=== PATIENT | male | born 1990 | race Caucasian/White ===

== ENCOUNTER 2018-05-02 11:16 | Day surgery (SDC) | payer OTHER ==
[2018-04-27 14:29] VITALS: BMI 22.9
[~2018-05-02 11:16] MED LIST: SODIUM CHLORIDE 0.9% 1,000 ML IV SCH
[2018-05-02 11:45] VITALS: RESP 16; TEMP 97.5
[2018-05-02] MEDS ORDERED: SODIUM CHLORIDE 0.9% 500 ML 500 ML IV ONE (11:48)
[2018-05-02 13:32] VITALS: BP 115/83; PULSE 65
--- NOTE | 2018-05-02 17:34 | P.PCN ---
Preoperative Diagnosis: Diagnosis Recurrent syncope Twelve-lead ECG Atrial paced rhythm narrow QRS normal QT interval Tilt table test per protocol Baseline blood pressure 113/75 mmHg Baseline heart rate 69 beats a minute Patient was tilted upright at night was 70 per protocol with an 8-10 minutes there was a sudden drop in his blood pressure he became dizzy and presyncopal felt hot and weak. When he was laid supine his blood pressure normalized Impression Atrial paced rhythm on twelve-lead ECG Vasodepressive response to upright tilting
== END 2018-05-02 13:52 | disposition home or self-care (01) ==
LOC: CATHEP 11:16
PROVIDERS: ATTEND Internal Medicine Clinical Cardiac Electrophysiology
DX: R55 Syncope and collapse (principal)
CPT/HCPCS: 93660

== ENCOUNTER → 2019-03-05 | Outpatient (CLI) | payer OTHER ==
[2019-03-05 19:17] LABS: T4, Free (Free Thyroxine) 1.1 ng/dL (0.80-1.80)
== END | disposition home or self-care (01) ==
LOC: LABWHC1 10:11
PROVIDERS: ATTEND Nurse Practitioner Adult Health
DX: I47.1 Supraventricular tachycardia (principal)
CPT/HCPCS: 36415; 84439; 84443; 84481

== ENCOUNTER 2019-03-17 22:26 | Emergency (ER) | payer OTHER ==
[2019-03-17] MEDS ORDERED: ONDANSETRON 4 MG/2 ML VIAL IVP STA (22:37)
[2019-03-17] MEDS ORDERED: SODIUM CHLORIDE 0.9% 500 ML 500 ML IV STA (22:37)
[2019-03-17] MEDS ORDERED: SODIUM CHLORIDE 0.9% 1,000 ML IV STA (22:37)
[2019-03-17 22:46] LABS: Glucose,Whole Blood 94 mg/dL (75-99)
[2019-03-17 23:07] LABS: ALT 12 U/L (21-72); AST 41 U/L (17-59); African American GFR (CKD) >90 (>60 ml/min/1.73 sqM); Albumin 4.8 g/dL (3.5-5.0); Alkaline Phosphatase 108 U/L (38-126); Amylase 61 U/L (30-110); Anion Gap 12 mmol/L; Blood Urea Nitrogen 14 mg/dL (9-20); Calcium 9.4 mg/dL (8.4-10.2); Carbon Dioxide 24 mmol/L (22-30); Chloride 104 mmol/L (98-107); Glucose 101 mg/dL (74-99); Non-African American GFR(CKD) >90 (>60 ml/min/1.73 sqM); Sodium 140 mmol/L (137-145); Total Bilirubin 0.8 mg/dL (0.2-1.3); Total Protein 8.3 g/dL (6.3-8.2)
--- NOTE | 2019-03-17 23:07 | ED ---
Chest Pain HPI - General Chief Complaint: Chest Pain Stated Complaint: vomiting, chest pain Time Seen by Provider: 03/17/19 22:37 Source: patient Mode of arrival: wheelchair Limitations: no limitations - History of Present Illness Initial Comments: 28-year-old male with history of neurocardiogenic syncope with pace maker presenting to the ER for multiple complaints. Patient states that this evening when putting his son to sleep he felt warm, nauseated, and began vomiting. Patient states the then started to have chest pain, burning in the chest. Patie nt denies HTN, DM, smoking history or premature CAD. Patient states that he has a headache now, and chills. Denies neck stiffness,fever, or sensitivity to light. Patient denies any ripping tearing pain or back pain. Patient denies any pain with inspiration, hemoptysis. Denies abdominal pain or masses. Patient states that he did eat his mother burgers today and is not sure if this made him sick. Patient denies diarrhea, melenea, hematochezia. Patient denies sudden onset of headache, this being the worst headache of his life weakness of the upper or lower extremities paresthesias or sensation deficits. Upon arrival to the emergency department patient is actively vomiting. Vital signs stable. - Related Data Home Medications Medication Instructions Recorded Confirmed Albuterol Inhaler [Ventolin Hfa 2 puff INHALATION RT-Q6H PRN 05/13/14 05/02/18 Inhaler] Fludrocortisone [Florinef] 0.1 mg PO BID 05/13/14 05/02/18 Ranitidine HCl 150 mg PO BID 05/13/14 05/02/18 Metoprolol Tartrate [Lopressor] 25 mg PO BID 01/19/16 05/02/18 Montelukast [Singulair] 10 mg PO HS 01/19/16 05/02/18 PARoxetine HCL [Paxil] 30 mg PO DAILY 01/19/16 05/02/18 Beclomethasone Dipropionate [Qvar 1 puff INHALATION DAILY 04/27/18 05/02/18 80 mcg] Allergies Allergy/AdvReac Type Severity Reaction Status Date / Time ibuprofen [From Motrin] Allergy Dyspnea Verified 03/17/19 22:32 Review of Systems ROS Statement: Those systems with pertinent positive or pertinent negative responses have been documented in the HPI. ROS Other: All systems not noted in ROS Statement are negative. EKG Findings - EKG Comments: EKG Findings:: Ventricular 84 bpm, [place] interval 134 ms, QRS jain 102 ms, QT/QTC 344/406 ms. Atrial paced. No ST elevation or depression noted. Past Medical History Past Medical History: Asthma, Chest Pain / Angina, GERD/Reflux, Musculoskeletal Disorder, Seizure Disorder, Syncope Additional Past Medical History / Comment(s): SEE DR CRYSTAL Quiñones&P. CMP. Pacemaker 06/13/2014. SYNCOPAL EPISODES ONGOING. LOW BLOOD PRESSURE. VERTIGO R/T DIZZYNESS. UPON STANDING LT ARM & LEG GO NUMB. EEGs, Showed Seizure-like Activity, Diagnosed w/ Seizures but Never physically had one. HX RUPTURED DISCS IN BACK, HAD PAIN INJ. History of Any Multi-Drug Resistant Organisms: None Reported Past Surgical History: Adenoidectomy, Hernia Repair, Pacemaker, Tonsillectomy Additional Past Surgical History / Comment(s): TILT TABLE. EP STUDY. STATES M ULT HERNIA REPAIRS. PACEMAKER [employer] 05/2014 Past Anesthesia/Blood Transfusion Reactions: Motion Sickness Type of Cardiac Device: Permanent Pacemaker Device Placement Date:: 2014 Past Psychological History: Anxiety, Depression Smoking Status: Never smoker Past Alcohol Use History: None Reported Past Drug Use History: None Reported - Past Family History Father Family Medical History: Chest Pain / Angina, Coronary Artery Disease (CAD) Brother(s) Family Medical History: No Reported History Sister(s) Family Medical History: No Reported History Daughter(s) Family Medical History: No Reported History Mother Family Medical History: Cancer Additional Family Medical History / Comment(s): BREAST General Exam - General Exam Comments Initial Comments: General: The patient is awake and alert, in no distress, and does not appear acutely ill. Eye: +3 mm pupils are equal, round and reactive to light, extra-ocular movements are intact. No nystagmus. There is normal conjunctiva bilaterally. No signs of icterus. Ears, nose, mouth and throat: There are moist mucous membranes and no oral lesions. No nuchal irritation. Neck: The neck is supple, there is no tenderness or JVD. Cardiovascular: There is a regular rate and rhythm. No murmur, rub or gallop is appreciated. Respiratory: Lungs are clear to auscultation, respirations are non-labored, breath sounds are equal. No wheezes, stridor, rales, or rhonchi. Gastrointestinal: Soft, non-distended, non-tender abdomen without masses or organomegaly noted. There is no rebound or guarding present. No CVA tenderness. Bowel sounds are unremarkable. Musculoskeletal: Normal ROM, no tenderness. Strength 5/5. Sensation intact. Radial pulses equal bilaterally 2+. Neurological: A&O x 3. CN II-XII intact, There are no obvious motor or sensory deficits. Coordination appears grossly intact. Speech is normal. Skin: Skin is warm and dry and no rashes or lesions are noted. No lower extremity edema Psychiatric: Cooperative, appropriate mood & affect, normal judgment. Limitations: no limitations Course Vital Signs 03/17/19 03/17/19 03/18/19 22:30 22:32 01:25 Temperature 97.6 F 97.8 F Pulse Rate 85 81 Pulse Rate [ 78 Polisher And Buffer ] Respiratory 17 16 Rate Blood Pressure 131/93 129/89 O2 Sat by Pulse 99 99 Oximetry Chest Pain MDM - MDM 28-year-old male presenting for vomiting. Patient also complaining of chest pain after vomiting, headache. Pain controlled with morphine. No additional episodes of emesis emergency department after menstruation of Zofran patient given IV hydration. EKG no acute findings. Chest x-ray within normal limits. Laboratory studies unremarkable. Abdomen benign. Patient requesting discharge. After discussing case with attending we feel patient is stable for discharge with outpatient PCP f/u. Return parameters were discussed patient verbalized understanding, findings discussed with patient. Patient discharged appearing we ll. Disposition Clinical Impression: Nausea and vomiting, Headache, Chest pain Disposition: HOME SELF-CARE Condition: Good Instructions (If sedation given, give patient instructions): Acute Nausea and Vomiting (ED) Additional Instructions: Please use medication as discussed. Please follow-up with family doctor in the next 2 days. Please return to emergency room if the symptoms increase or worsen or for any other concerns. Is patient prescribed a controlled substance at d/c from ED?: No Referrals: Woody Shields MD [Primary Care Provider] - 1-2 days Time of Disposition: 01:15
--- NOTE | 2019-03-17 23:12 | XR ---
EXAMINATION TYPE: XR chest 2V DATE OF EXAM: 03/17/2019 COMPARISON: 10/22/2015 HISTORY: Chest pain TECHNIQUE: Frontal and lateral views of the chest are obtained. FINDINGS: Heart and mediastinum are normal. Lungs are clear. Diaphragm is normal. There is left axil shefali pacemaker. There are chest leads. Bony thorax is intact. IMPRESSION: No active cardiopulmonary disease. Normal heart. No change.
[2019-03-17 23:16] LABS: Potassium 4.1 mmol/L (3.5-5.1)
[2019-03-17] MEDS ORDERED: diphenhydrAMINE 50 MG/ML 1 ML VIAL IVP STA (23:41)
[2019-03-17] MEDS ORDERED: MORPHINE SULFATE 2 MG/ML SYRINGE IVP STA (23:41)
[2019-03-17 23:44] LABS: Basophils # (A) 0.1 k/uL (0-0.2); Basophils % (A) 1 %; Eosinophils # (A) 0.1 k/uL (0-0.7); Eosinophils % (A) 1 %; HCT 44.5 % (39.0-53.0); HGB 15.9 gm/dL (13.0-17.5); Lymphocytes # (A) 3.2 k/uL (1.0-4.8); Lymphocytes % (A) 33 %; MCH 30.9 pg (25.0-35.0); MCHC 35.8 g/dL (31.0-37.0); MCV 86.5 fL (80.0-100.0); Mean Platelet Volume 6.5; Monocytes # (A) 0.8 k/uL (0-1.0); Monocytes % (A) 8 %; Neutrophils # (A) 5.4 k/uL (1.3-7.7); Neutrophils % (A) 55 %; Platelet Count 282 k/uL (150-450); RBC 5.14 m/uL (4.30-5.90); WBC 9.8 k/uL (3.8-10.6)
[2019-03-18 01:26] VITALS: BP 129/89; PULSE 81; RESP 16; TEMP 97.8
== END 2019-03-18 01:25 | disposition home or self-care (01) ==
LOC: EC 22:26
DX: R07.9 Chest pain, unspecified (principal); R11.2 Nausea with vomiting, unspecified; R51 Headache; J45.909 Unspecified asthma, uncomplicated; K21.9 Gastro-esophageal reflux disease without esophagitis; F32.9 Major depressive disorder, single episode, unspecified; F41.9 Anxiety disorder, unspecified; Z88.6 Allergy status to analgesic agent; Z79.51 Long term (current) use of inhaled steroids; Z79.52 Long term (current) use of systemic steroids; Z79.899 Other long term (current) drug therapy; Z95.0 Presence of cardiac pacemaker; Z82.49 Family history of ischemic heart disease and other diseases of the circulatory system
CPT/HCPCS: 36415; 93005; 80053; 82150; 83605; 83690; 84484; 85025; 71046; 99285; 96374; 96375 ×2; 96361 ×2; J1200; J2405; J2270

== ENCOUNTER → 2019-08-08 | Outpatient (CLI) | payer OTHER ==
--- NOTE | 2019-08-08 13:17 | CONS ---
CONSULTATION DATE OF SERVICE: 08/08/2019. A 28-year-old gentleman had been evaluated in the sleep center for significant excessive daytime sleepiness and 4 episodes of questionable syncope. HISTORY OF PRESENT ILLNESS/SLEEP-WAKE EVALUATION: Patient has history of sleepiness for many years. He can sleep in any situations. Presently his sleep schedule from 9 p.m. until 7 a.m., but he wakes up at 7 a.m. because his daughter has to go to school. Otherwise, he possibly could sleep longer. He sleeps through the night without any awakenings and wakes up tired, falling asleep during the day, has episodes of anxiety and depression. [place] Sleepiness Scale significantly increased to 14. He takes around 2 naps a day around noon and at 4 p.m. for about 1-1/2 hours each. Sometimes he feels refreshed after naps. No vivid dreams during naps. No history of hypnagogic hallucinations. The patient has episodes of syncope, which could be differentiated with cataplexy when patient has to sit down or lay down because of he becomes weak. He does not lose consciousness during these episodes. It goes for about 15 minutes and then goes away after that. PAST MEDICAL HISTORY: Positive for asthma, anxiety. PAST SURGICAL HISTORY: Status post permanent pacemaker insertion. MEDICATIONS: Montelukast, Paxil, fludrocortisone, metoprolol, albuterol. SOCIAL HISTORY: Negative for smoking. Negative for using alcohol. FAMILY HISTORY: Asthma, headaches. REVIEW OF SYSTEMS: Significant tiredness and all the time sleepiness during the day. Episodes of weakness and tiredness. PHYSICAL EXAMINATION: During physical exam, gentleman without distress. VITAL SIGNS: BP 120/35, HR 76, RR 14, height 5 feet 8 inches, weight 189.0, body mass index 28.7, temperature 98.0, oxygen saturation at room air 98%. HEENT: PERRLA, EOMI. Oropharynx extremely low position of soft palate. Mallampati 4. Restriction of nasal breathing bilaterally. NECK: 15-2/3 inches in circumference. LUNGS: Clear to percussion and to auscultation. Good air exchange. No wheezing or rhonchi. HEART: S1, S2 regular. No murmurs, gallops, or rubs. ABDOMEN: Soft and nontender. Bowel sounds are present. No organomegaly appreciated. EXTREMITIES: No clubbing or cyanosis. PERIANESTHESIA NURSE: Awake, alert, and oriented X3. Cranial nerves 2 to 7 intact. There is no fasciculation or atrophy. noted. No focal deficits observed. IMPRESSION: 1. Patient sleeps by himself. He does not know that he snores, extremely low position of soft palate, significant restriction of nasal breathing; possible obstructive sleep apnea-hypopnea syndrome, although the patient does not wake up from sleep according to him. 2. Significant excessive daytime sleepiness. [place] Sleepiness Scale increased to 14. The patient may take naps 2 times a day for 1-1/2 hours each with sleep schedule for 10 hours at night, episodes of muscle weakness. Differential diagnosis include idiopathic hypersomnia and narcolepsy with questionable cataplexy. 3. Allergy. 4. History of asthma. 5. History of anxiety. 6. Status post permanent pacemaker insertion. PLAN: 1. Polysomnography for evaluation of patient's breathing during sleep. 2. CPAP/BiPAP titration if sleep study confirms obstructive sleep apnea-hypopnea syndrome. 3. Preferable position during sleep on the side. 4. No driving if patient feels any sleepiness. 5. I will see patient for follow up visit to explain results of testing and following plan. 6. Multiple sleep latency test for objective evaluation of patient's symptoms of excessive daytime sleepiness. Thank you very much for referring this patient for consultation. Sincerely, Genaro Carrion MD, PhD, FAASM Diplomat of [place] [employer] [place] [employer] Physician Underwriter of [facility] [place] MMODL / IJN: [id number] /
== END | disposition home or self-care (01) ==
LOC: SLEEP 11:39
PROVIDERS: ATTEND Internal Medicine
DX: G47.10 Hypersomnia, unspecified (principal); M62.81 Muscle weakness (generalized); T78.40XA Allergy, unspecified, initial encounter; J45.909 Unspecified asthma, uncomplicated; Z86.59 Personal history of other mental and behavioral disorders; Z87.09 Personal history of other diseases of the respiratory system; Z82.5 Family history of asthma and other chronic lower respiratory diseases; Z95.0 Presence of cardiac pacemaker; Z79.52 Long term (current) use of systemic steroids; Z79.899 Other long term (current) drug therapy
CPT/HCPCS: 99211

== ENCOUNTER 2020-01-23 11:36 | Inpatient (IN) | payer MEDICAID, OTHER ==
--- NOTE | 2020-01-23 11:51 | ED ---
General Adult HPI - General Chief complaint: Psychiatric Symptoms Stated complaint: mental health Time Seen by Provider: 01/23/20 11:42 Source: patient, RN notes reviewed Mode of arrival: ambulatory Limitations: no limitations - History of Present Illness Initial comments: Patient is a pleasant 29-year-old male presenting to the emergency Department with complaints of depression. Symptoms have worsened over the past few days. Patient is unclear why. Patient does have suicidal thoughts without plan. No homicidal thoughts. No hallucinations. No alcohol or street drug use. No new physical complaints. Patient does have history of previous depression. - Related Data Home Medications Medication Instructions Recorded Confirmed Fludrocortisone [Florinef] 0.1 mg PO BID 05/13/14 01/23/20 Metoprolol Tartrate [Lopressor] 25 mg PO BID 01/19/16 01/23/20 Montelukast [Singulair] 10 mg PO HS 01/19/16 01/23/20 PARoxetine HCL [Paxil] 30 mg PO DAILY 01/19/16 01/23/20 Beclomethasone Dipropionate [Qvar 1 puff INHALATION RT-DAILY 04/27/18 01/23/20 80 mcg] Albuterol Sulfate [Albuterol 2 puff PO RT-Q6H PRN 01/23/20 01/23/20 Sulfate Hfa] Allergies Allergy/AdvReac Type Severity Reaction Status Date / Time ibuprofen [From Motrin] Allergy Dyspnea Verified 01/23/20 12:39 Review of Systems ROS Statement: Those systems with pertinent positive or pertinent negative responses have been documented in the HPI. ROS Other: All systems not noted in ROS Statement are negative. Constitutional: Denies: fever Eyes: Denies: eye pain ENT: Denies: ear pain Respiratory: Denies: cough Cardiovascular: Denies: chest pain Endocrine: Denies: fatigue Gastrointestinal: Denies: abdominal pain Genitourinary: Denies: dysuria Musculoskeletal: Denies: back pain Skin: Denies: rash Neurological: Denies: headache Psychiatric: Reports: depression, suicidal thoughts Past Medical History Past Medical History: Asthma, Chest Pain / Angina, GERD/Reflux, Musculoskeletal Disorder, Seizure Disorder, Syncope Additional Past Medical History / Comment(s): SEE DR CRYSTAL Quiñones&Bryan. CMP. Pacemaker 06/13/2014. SYNCOPAL EPISODES ONGOING. LOW BLOOD PRESSURE. VERTIGO R/T DIZZYNESS. UPON STANDING LT ARM & LEG GO NUMB. EEGs, Showed Seizure-like Activity, Diagnosed w/ Seizures but Never physically had one. HX RUPTURED DISCS IN BACK, HAD PAIN INJ. History of Any Multi-Drug Resistant Organisms: None Reported Past Surgical History: Adenoidectomy, Hernia Repair, Pacemaker, Tonsillectomy Additional Past Surgical History / Comment(s): TILT TABLE. EP STUDY. STATES MULT HERNIA REPAIRS. PACEMAKER [employer] 05/2014 Past Anesthesia/Blood Transfusion Reactions: Motion Sickness Type of Cardiac Device: Permanent Pacemaker Device Placement Date:: 2014 Past Psychological History: Anxiety, Depression Smoking Status: Never smoker Past Alcohol Use History: None Reported Past Drug Use History: None Reported - Past Family History Father Family Medical History: Chest Pain / Angina, Coronary Artery Disease (CAD) Brother(s) Family Medical History: No Reported History Sister(s) Family Medical History: No Reported History Daughter(s) Family Medical History: No Reported History Mother Family Medical History: Cancer Additional Family Medical History / Comment(s): BREAST General Exam Limitations: no limitations General appearance: alert, in no apparent distress Head exam: Present: normocephalic Eye exam: Present: normal appearance Neck exam: Present: normal inspection Respiratory exam: Present: normal lung sounds bilaterally Cardiovascular Exam: Present: regular rate, normal rhythm GI/Abdominal exam: Present: soft. Absent: tenderness Extremities exam: Present: normal inspection Neurological exam: Present: alert Psychiatric exam: Present: depressed Skin exam: Present: normal color Course Vital Signs 01/23/20 01/23/20 01/23/20 11:38 12:42 14:00 Temperature 98.2 F Pulse Rate 87 Respiratory 18 18 18 Rate Blood Pressure 138/97 O2 Sat by Pulse 98 Oximetry 01/23/20 14:27 Temperature Pulse Rate Respiratory 18 Rate Blood Pressure O2 Sat by Pulse Oximetry Medical Decision Making - Medical Decision Making Patient seen by mental health services with plan for admission. Disposition Clinical Impression: Depression Disposition: TRANSFER TO PSYCH HOSP/UNIT Is patient prescribed a controlled substance at d/c from ED?: No Decision Time: 14:50
[2020-01-23] MEDS ORDERED: LORazepam 1 MG TAB PO PRN (14:37)
[2020-01-23] MEDS ORDERED: ZIPRASIDONE 20 MG VIAL IM PRN (14:37)
[2020-01-23] MEDS ORDERED: ACETAMINOPHEN TAB 325 MG TAB PO PRN (14:37)
[2020-01-23] MEDS ORDERED: MAGNESIUM HYDROXIDE 2,400 MG/10 ML CUP PO PRN (14:37)
[2020-01-23] MEDS ORDERED: MAG HYDROX/AL HYDROX/SIMETH 30 ML CUP PO PRN (14:37)
[2020-01-23] MEDS: FLUDROCORTISONE 0.1 MG TAB PO SCH (21:43)
[2020-01-23] MEDS: METOPROLOL TARTRATE 25 MG TAB PO SCH (21:43)
[2020-01-23] MEDS: MONTELUKAST 10 MG TAB PO SCH (21:43)
[2020-01-24] MEDS ORDERED: PARoxetine 10 MG TAB PO SCH (09:00)
[2020-01-24] MEDS: FLUTICASONE 110 MCG INHALER (MHU) INHALATION SCH (09:04)
[2020-01-24] MEDS: METOPROLOL TARTRATE 25 MG TAB PO SCH ×2 (09:05→21:13)
[2020-01-24] MEDS: FLUDROCORTISONE 0.1 MG TAB PO SCH ×2 (09:05→21:13)
[2020-01-24 09:24] LABS: Basophils % (A) 1 %; Eosinophils # (A) 0.1 k/uL (0-0.7); Eosinophils % (A) 1 %; HCT 47.9 % (39.0-53.0); HGB 15.9 gm/dL (13.0-17.5); Lymphocytes # (A) 1.6 k/uL (1.0-4.8); Lymphocytes % (A) 25 %; MCH 29.5 pg (25.0-35.0); MCHC 33.2 g/dL (31.0-37.0); MCV 88.8 fL (80.0-100.0); Mean Platelet Volume 7.8; Monocytes # (A) 0.4 k/uL (0-1.0); Monocytes % (A) 7 %; Neutrophils # (A) 4.2 k/uL (1.3-7.7); Neutrophils % (A) 65 %; Platelet Count 247 k/uL (150-450); RBC 5.39 m/uL (4.30-5.90); RDW 12.5 % (11.5-15.5); WBC 6.4 k/uL (3.8-10.6)
[2020-01-24 09:34] LABS: ALT 13 U/L (4-49); AST 19 U/L (17-59); African American GFR (CKD) >90 (>60 ml/min/1.73 sqM); Albumin 4.5 g/dL (3.5-5.0); Alkaline Phosphatase 63 U/L (38-126); Anion Gap 9 mmol/L; Blood Urea Nitrogen 11 mg/dL (9-20); Calcium 9.4 mg/dL (8.4-10.2); Carbon Dioxide 29 mmol/L (22-30); Chloride 102 mmol/L (98-107); Glucose 119 mg/dL (74-99); Non-African American GFR(CKD) >90 (>60 ml/min/1.73 sqM); Sodium 140 mmol/L (137-145); Total Bilirubin 0.8 mg/dL (0.2-1.3); Total Protein 7.2 g/dL (6.3-8.2)
--- NOTE | 2020-01-24 10:27 | P.HP ---
Psychiatric H&P - . H&P Date: 01/24/20 History & Physical: Allergies Allergy/AdvReac Type Severity Reaction Status Date / Time ibuprofen [From Motrin] Allergy Dyspnea Verified 01/23/20 16:36 Vital Signs Temp 97.4 F L 01/24/20 06:44 Pulse 110 H 01/24/20 09:03 Resp 16 01/24/20 06:44 BP 127/83 01/24/20 09:03 Pulse Ox 100 01/23/20 16:08 Intake & Output 01/23/20 01/24/20 01/24/20 18:59 06:59 18:59 Weight 81.692 kg Laboratory Last Values WBC 6.4 k/uL (3.8-10.6) 01/24/20 08:48 RBC 5.39 m/uL (4.30-5.90) 01/24/20 08:48 Hgb 15.9 gm/dL (13.0-17.5) 01/24/20 08:48 Hct 47.9 % (39.0-53.0) 01/24/20 08:48 MCV 88.8 fL (80.0-100.0) 01/24/20 08:48 MCH 29.5 pg (25.0-35.0) 01/24/20 08:48 MCHC 33.2 g/dL (31.0-37.0) 01/24/20 08:48 RDW 12.5 % (11.5-15.5) 01/24/20 08:48 Plt Count 247 k/uL (150-450) 01/24/20 08:48 Neutrophils % 65 % 01/24/20 08:48 Lymphocytes % 25 % 01/24/20 08:48 Monocytes % 7 % 01/24/20 08:48 Eosinophils % 1 % 01/24/20 08:48 Basophils % 1 % 01/24/20 08:48 Neutrophils # 4.2 k/uL (1.3-7.7) 01/24/20 08:48 Lymphocytes # 1.6 k/uL (1.0-4.8) 01/24/20 08:48 Monocytes # 0.4 k/uL (0-1.0) 01/24/20 08:48 Eosinophils # 0.1 k/uL (0-0.7) 01/24/20 08:48 Basophils # 0.0 k/uL (0-0.2) 01/24/20 08:48 Sodium 140 mmol/L (137-145) 01/24/20 08:48 Potassium 4.0 mmol/L (3.5-5.1) 01/24/20 08:48 Chloride 102 mmol/L (98-107) 01/24/20 08:48 Carbon Dioxide 29 mmol/L (22-30) 01/24/20 08:48 Anion Gap 9 mmol/L 01/24/20 08:48 BUN 11 mg/dL (9-20) 01/24/20 08:48 Creatinine 0.80 mg/dL (0.66-1.25) 01/24/20 08:48 Est GFR (CKD-EPI)AfAm >90 (>60 ml/min/1.73 sqM) 01/24/20 08:48 Est GFR (CKD-EPI)NonAf >90 (>60 ml/min/1.73 sqM) 01/24/20 08:48 Glucose 119 mg/dL (74-99) H 01/24/20 08:48 Calcium 9.4 mg/dL (8.4-10.2) 01/24/20 08:48 Total Bilirubin 0.8 mg/dL (0.2-1.3) 01/24/20 08:48 AST 19 U/L (17-59) 01/24/20 08:48 ALT 13 U/L (4-49) 01/24/20 08:48 Alkaline Phosphatase 63 U/L (38-126) 01/24/20 08:48 Total Protein 7.2 g/dL (6.3-8.2) 01/24/20 08:48 Albumin 4.5 g/dL (3.5-5.0) 01/24/20 08:48 TSH 1.510 mIU/L (0.465-4.680) 01/24/20 08:48 01/24/20 10:12 HPI: The patient's depression has gotten much worse since he was started on steroids. He was feeling suicidal thinking of drowning himself and unable to contract he contacted the [facility] and they told him go to the hospital. He has been on Paxil for almost 5 years at 30 mg and feels it isn't working. Plus when he takes it he feels a little dizzy. Current symptomatology: Low energy lack of enjoyment and motivation and hope. He says he has no problem with irritability or anxiety but he is always tearful he says he has to cry himself to sleep every night and doesn't get to sleep until 3 in the morning then is up again 4 hours later. Past psychiatric history: Although patient has struggled with medical issues his entire life it wasn't until he had a tilt test and they gave him a pacemaker and then did the tilt test again and it didn't seem to help that he began to feel depressed that was about 5 years ago. They put him on Paxil which she thinks helped for a while but just isn't helping now. He notices that the depression got much worse when they added steroids. He was told that he had to have that because when he stood up all his blood tried to go down to his feet and that it would decrease that. Medical: The patient has something called neurocardiogenic syncope with severe bradycardia and sinus pausing. He also has an history of asthma chest pain angina GERD musculoskeletal disorder and syncope there is some question as to possibility of seizure disorder. He says that he had an EEG that showed seizure potential but he has never actually had a seizure. He tends to run low blood pressure and he has had ruptured disks in his back Vital signs: Temperature is 90.7 for heart rates 84 respirations 16 blood pressure 115/65 and pO2 on room air is under percent Labs: He had a hematology was fine he is not at all anemic and general chemistry was fine, for some reason his total protein is slightly elevated which is unusual for patients Substance use patient denies any use of alcohol cigarettes or street drugs now or in the past Social history the patient is oldest of 3 children born to his parents who are alive and together his dad struggle with heart problems. His mother had cancer but just treated and she is doing well he denies psychiatric problems in the family. His significant other who he is been with for over 11 years is healthy and works steadily at [employer] and they have 3 children a daughter 6 a daughter 4 and a son 2. Both off the daughters have some cardiac problems and his son has regular seizures. They think that the seizures might be connected to a similar cardiac issue and low oxygen. The patient had a normal and early development and did really well until he was about 10 when he started having this syncopal episodes. He dropped out of school in 11th grade due to his medical problems and is unable to hold a steady job. 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 No experience no legal issues. He and his live together with their children and double wide trailer. The things he really loves in life are riding his more cycle fishing and driving high-speed racecars. He says he has backed off on doing these things since the depression has worsened. Mental status exam: The patient is alert oriented to person place time and circumstances psychomotor activity is decreased response times are slow eye contact is down affect is sad. He denies and does not evidence any psychotic symptoms he is slightly tearful at times he says that although he was thinking of drowning himself he says I don't know if I would've actually done it. Short- term memory is slightly impaired he can remember 2 of 3 objects after 3 minutes. Overall intelligence is low average she has a little trouble understanding abstract thoughts. Strengths caring and 3 children he loves no substance use wants to get better willing to go to counseling Weaknesses chronic depression and physical illness and concern about his children and their illnesses Diagnosis major depression recurrent severe nonpsychotic. Rule out depression engendered by steroids Assessment I don't think he will need to be in the hospital for any length of time only met Tuesday I am going to start him on mirtazapine and hopefully he'll tolerate it not back off on the Paxil to 20 and the mirtazapine should double the Paxil's impact since it is a receptor agonist.
--- NOTE | 2020-01-24 11:14 | P.CONS ---
History of Present Illness - Reason for Consult Consult date: 01/24/20 medical management - Chief Complaint Depression - History of Present Illness This is a 29-year-old male patient of Dr. Schwartz with medical history of asthma, chest pain, GERD, questionable seizure disorder, syncope with permanent pacemaker, and depression. Patient reports increased stress related to his children's illnesses and had suicidal thoughts. 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 Patient was admitted to the psychiatric floor and was seen by psychology. Patient was started on mirtazapine and Paxil was decreased to 20 mg daily. Patient was seen this morning in [facility], discussed 3 of his children have different illnesses with seizure disorder, another child needs a lung transplant, and currently working up 3-year-old for brain tumor patient reported. Patient believes his depression also got worse when started on steroids. Will continue to follow patient along with psychology and their recommendations. Labs were reviewed, and vital signs are stable, she was afebrile heart rate 84, blood pressure 115/65, satting 100% on room air. Review of Systems General: Patient denies fever, chills,nausea, or vomiting. HEENT: No visual changes. No eye pain. No nasal symptoms. No dysphagia.No odynophagia. No ENT pain. Cardiac: No chest pain. No palpitations. Pulmonary: No dyspnea. GI: No abdominal pain. No diarrhea. No constipation. No bowel habit changes. No melena. No hematochezia. : No dysuria.No hematuria. No hesitancy. No urgency. Musculoskeletal: No musculoskeletal pain. Integumentary: Denies rash. Denies pruritis. Neurologic: Denies any lateralizing weakness. Denies headache. Denies numbness. Denies tingling. No seizure activity. Denies TIA or CVA. Endocrine: Denies Fatigue Heme/Onc: Denies anemia. Denies cancer. Denies adenopathy. Allergic/Immunologic: Denies allergies Psych: Increased depression Past Medical History Past Medical History: Asthma, Chest Pain / Angina, GERD/Reflux, Musculoskeletal Disorder, Seizure Disorder, Syncope Additional Past Medical History / Comment(s): SEE DR ROJAS H&P. CMP. Pacemaker 06/13/2014. SYNCOPAL EPISODES ONGOING. LOW BLOOD PRESSURE. VERTIGO R/T DIZZYNESS. UPON STANDING LT ARM & LEG GO NUMB. EEGs, Showed Seizure-like Activity, Diagnosed w/ Seizures but Never physically had one. HX RUPTURED DISCS IN BACK, HAD PAIN INJ., unable to stand for longer than 12 minutes, never had a seizure, only diagnosed, History of Any Multi-Drug Resistant Organisms: None Reported Past Surgical History: Adenoidectomy, Hernia Repair, Pacemaker, Tonsillectomy Additional Past Surgical History / Comment(s): TILT TABLE. EP STUDY. STATES MULT HERNIA REPAIRS. PACEMAKER [employer] 05/2014 Past Anesthesia/Blood Transfusion Reactions: Motion Sickness Type of Cardiac Device: Permanent Pacemaker Device Placement Date:: 2014 Past Psychological History: Anxiety, Depression Smoking Status: Never smoker Past Alcohol Use History: None Reported Past Drug Use History: None Reported - Past Family History Father Family Medical History: Chest Pain / Angina, Coronary Artery Disease (CAD) Brother(s) Family Medical History: No Reported History Sister(s) Family Medical History: No Reported History Daughter(s) Family Medical History: No Reported History Mother Family Medical History: Cancer Additional Family Medical History / Comment(s): BREAST Medications and Allergies Home Medications Medication Instructions Recorded Confirmed Type Fludrocortisone [Florinef] 0.1 mg PO DAILY 05/13/14 01/23/20 History Metoprolol Tartrate [Lopressor] 12.5 mg PO DAILY 01/19/16 01/23/20 History Montelukast [Singulair] 10 mg PO HS 01/19/16 01/23/20 History PARoxetine HCL [Paxil] 30 mg PO DAILY 01/19/16 01/23/20 History Beclomethasone Dipropionate [Qvar 1 puff INHALATION RT-DAILY 04/27/18 01/23/20 History 80 mcg] Albuterol Sulfate [Albuterol 2 puff PO RT-Q6H PRN 01/23/20 01/23/20 History Sulfate Hfa] Allergies Allergy/AdvReac Type Severity Reaction Status Date / Time ibuprofen [From Motrin] Allergy Dyspnea Verified 01/23/20 16:36 Physical Exam Vitals: Vital Signs Temp Pulse Pulse Resp BP BP Pulse Ox 01/24/20 09:03 110 H 127/83 01/24/20 06:44 97.4 F L 84 16 115/65 01/23/20 16:08 97.5 F L 89 18 124/99 100 01/23/20 14:37 99 130/102 01/23/20 14:27 18 01/23/20 14:00 18 01/23/20 12:42 18 01/23/20 11:38 98.2 F 87 18 138/97 98 Intake and Output 01/23/20 01/24/20 01/24/20 22:59 06:59 14:59 Other: Weight 81.692 kg General: Patient awake alert and oriented x 3. No acute distress. HEENT: Sclerae are clear. Pupils equal, round and reactive to light bilaterally. No cervical adenopathy. No pharyngeal erythema or exudate. No thyromegaly. Lymphatic: No anterior cervical adenopathy. Chest: Heart regular in rate and rhythm positive S1 and S2. No S3. No S4. No clicks, rubs or murmurs. Lungs: Clear to auscultation bilaterally. No wheezes rales or rhonchi. Respirations even and nonlabored. Abdomen/GI: Bowel sounds present in all 4 quadrants. Bowel sounds normoactive. No abdominal tenderness. No mass. No hepatomegaly or splenomegaly. No bruits. Musculoskeletal/ Extremities: No tenderness on muscular exam. No ecchymosis. Vascular: Radial pulses equal. 2/4. Skin: No rash. Neurologic: Awake, alert and oriented times 3. No lateralizing deficits noted on gross inspection. Psychiatric: Flat affect Results CBC & Chem 7: 01/24/20 08:48 01/24/20 08:48 Labs: Abnormal Lab Results - Last 24 Hours (Table) 01/24/20 Range/Units 08:48 Glucose 119 H (74-99) mg/dL Assessment and Plan Assessment: 1: Depression: Patient was admitted to psychiatric floor for evaluation. Psychology seen patient decrease Paxil to 20 mg by mouth daily and added mirtazapine 15 mg at at bedtime. 2. Neurogenic syncope: Patient has permanent pacemaker in place, on Florinef 0.1 mg twice a day. 3. Chest pain/angina: Patient denies any symptoms at this time follows with cardiology. Continue metoprolol 25 mg by mouth twice a day. 4. History of asthma: On albuterol inhaler as needed along with Flovent. Singulair 10 mg at bedtime 5. Generalized Anxiety: Has Ativan when necessary. 6. Insomnia: We'll continue melatonin 5 mg at at bedtime Patient will be admitted to the hospital for minimum of 2 night stay. Discharge plan: Likely home with self-care, depending on psych's recommendations. Impression and plan of care have been directed as dictated by the signing physician. Leyla Berry nurse practitioner acting as scribe for signing physician.
[2020-01-24] MEDS ORDERED: MIRTAZAPINE 15 MG TAB PO SCH (21:00)
[2020-01-24] MEDS: MONTELUKAST 10 MG TAB PO SCH (21:12)
[2020-01-24] MEDS: MELATONIN 5 MG TABLET PO SCH (21:13)
[2020-01-25] MEDS: PARoxetine 20 MG TAB PO SCH (08:39)
[2020-01-25] MEDS: FLUTICASONE 110 MCG INHALER (MHU) INHALATION SCH (08:39)
[2020-01-25] MEDS: METOPROLOL TARTRATE 25 MG TAB PO SCH ×2 (08:39→21:09)
[2020-01-25] MEDS: FLUDROCORTISONE 0.1 MG TAB PO SCH (08:40)
--- NOTE | 2020-01-25 09:49 | P.PN ---
Subjective Progress Note Date: 01/25/20 Principal diagnosis: Diagnoses major depression recurrent severe nonpsychotic Subjective: Patient says he slept well still feels sad and anxious however he is not actively suicidal. He says he only takes the steroids once a day and sometimes he doesn't take it at all. Objective I called the patient's cardiology office and talked to the nurse veterinarian assistant to works with Dr. howard and we are both on board with trying to get by with less steroids. Vital signs: Temperature is 98.1 heart rates 89 respiration 18 blood pressure 124/79 which is adequate Labs: Hematology yesterday was fine general chemistry showed a slightly elevated glucose groups the patient says he went to the groups yesterday and was recorded to have attended the full group initiates interaction with peers and staff spontaneous compliant affect somewhat blunted Staff report patient seems calm and composed able to take care of his ADLs denies any hallucinations delusions or active suicidality admits to being depressed Mental status exam the patient is alert decreased psychomotor activity sad affect adequate eye contact gait and station are normal no signs of psychosis no tearfulness or aggression Assessment patient is still depressed and I do need to take him off dose steroids and then we need to watch for his blood pressure crashing I think he should be safe since his only been taking less than 1 a day recently also need to increase his mirtazapine to 30 and look for discharge on Tuesday Objective - Vital Signs Vital signs: Vital Signs Temp 98.1 F 01/24/20 21:14 Pulse 89 01/25/20 08:42 Resp 18 01/25/20 08:42 BP 124/79 01/25/20 08:42 Pulse Ox 100 01/23/20 16:08 - Labs CBC & Chem 7: 01/24/20 08:48 01/24/20 08:48
[2020-01-25] MEDS: MELATONIN 5 MG TABLET PO SCH (21:09)
[2020-01-25] MEDS: MONTELUKAST 10 MG TAB PO SCH (21:09)
[2020-01-25] MEDS: MIRTAZAPINE 15 MG TAB PO SCH (21:09)
[2020-01-26] MEDS: METOPROLOL TARTRATE 25 MG TAB PO SCH ×2 (08:50→21:14)
[2020-01-26] MEDS: FLUTICASONE 110 MCG INHALER (MHU) INHALATION SCH (08:50)
[2020-01-26] MEDS: PARoxetine 20 MG TAB PO SCH (08:51)
[2020-01-26] MEDS: ALBUTEROL HFA INHALER INHALATION PRN ×2 (14:54→21:18)
--- NOTE | 2020-01-26 16:08 | P.PN ---
Subjective Progress Note Date: 01/26/20 This is a 29-year-old male patient of Dr. Schwartz with medical history of asthma, chest pain, GERD, questionable seizure disorder, syncope with permanent pacemaker, and depression. Patient reports increased stress related to his children's illnesses and had suicidal thoughts. 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 Patient was admitted to the psychiatric floor and was seen by psychology. Patient was started on mirtazapine and Paxil was decreased to 20 mg daily. Patient was seen this morning in [facility], discussed 3 of his children have different illnesses with seizure disorder, another child needs a lung transplant, and currently working up 3-year-old for brain tumor patient reported. Patient believes his depression also got worse when started on steroids. Will continue to follow patient along with psychology and their recommendations. Labs were reviewed, and vital signs are stable, she was afebrile heart rate 84, blood pressure 115/65, satting 100% on room air. 01/25 patient by the nurse that patient is having chest heaviness associated with shortness of breath and dizziness since the discontinuation of fludrocortisone. Patient vitals this morning suggests a temp of 97.9 pulse 80 blood pressure 98/64 that increased to 136/90. He does endorses dizziness associated with shortness of breath and chest heaviness since early in the morning. Patient had pacemaker placed [address] Hackett for syncope and was placed on fludrocortisone since then. EKG done that was negative for any ST or T-wave changes patient had a atrial paced rhythm. Labs are ordered included a CBC, CMP, troponin and magnesium. Orthostatics ordered and patient encouraged to a in drink plenty of fluids. Midodrine initiated at 10 mg 3 times a day. Cardiology consulted. Review of Systems General: Patient denies fever, chills,nausea, or vomiting. Positive for vertigo HEENT: No visual changes. No eye pain. No nasal symptoms. No dysphagia.No odynophagia. No ENT pain. Endorses swelling of the eyes Cardiac: Positive for chest pain and shortness of breath no palpitation Pulmonary: Positive for shortness of breath GI: No abdominal pain. No diarrhea. No constipation. No bowel habit changes. No melena. No hematochezia. : No dysuria.No hematuria. No hesitancy. No urgency. Musculoskeletal: No musculoskeletal pain. Integumentary: Denies rash. Denies pruritis. Neurologic: Denies any lateralizing weakness. Denies headache. Denies numbness. Denies tingling. No seizure activity. Denies TIA or CVA. Endocrine: Denies Fatigue Heme/Onc: Denies anemia. Denies cancer. Denies adenopathy. Allergic/Immunologic: Denies allergies Psych: Increased depression Objective - Vital Signs Vital signs: Vital Signs Temp 97.3 F L 01/26/20 13:23 Pulse 89 01/26/20 14:56 Resp 20 01/26/20 08:50 BP 136/90 01/26/20 14:56 Pulse Ox 100 01/23/20 16:08 - Exam General: Patient awake alert and oriented x 3. No acute distress. HEENT: Sclerae are clear. Appears tired and puffiness involving the lower eyelid Pupils equal, round and reactive to light bilaterally. No cervical adenopathy. No pharyngeal erythema or exudate. No thyromegaly. Lymphatic: No anterior cervical adenopathy. Chest: Heart regular in rate and rhythm positive S1 and S2. No S3. No S4. No clicks, rubs or murmurs. Lungs: Clear to auscultation bilaterally. No wheezes rales or rhonchi. Respirations even and nonlabored. Abdomen/GI: Bowel sounds present in all 4 quadrants. Bowel sounds normoactive. No abdominal tenderness. No mass. No hepatomegaly or splenomegaly. No bruits. Musculoskeletal/ Extremities: No tenderness on muscular exam. No ecchymosis. Vascular: Radial pulses equal. 2/4. Skin: No rash. Neurologic: Awake, alert and oriented times 3. No lateralizing deficits noted on gross inspection. Psychiatric: Flat affect - Labs CBC & Chem 7: 01/24/20 08:48 01/24/20 08:48 Assessment and Plan Plan: 1: Depression: Patient was admitted to psychiatric floor for evaluation. Psychology seen patient decrease Paxil to 20 mg by mouth daily and added mirtazapine 15 mg at at bedtime. 2. Dizziness with h/o Cardiogenic syncope: Patient has permanent pacemaker in place, was on Florinef 0.1 mg twice a day. florinef discontinued yesterday, will order 8 am cortisol and ACTH . Orthostatic ordered if positive patient can be started on midodrine 3. Chest pain/angina: unclear etiology , labs ordered troponin ordered, ECG ordered. cardiology consulted Continue metoprolol 25 mg by mouth twice a day. 4. History of asthma: On albuterol inhaler as needed along with Flovent. Singulair 10 mg at bedtime 5. Generalized Anxiety: Has Ativan when necessary. 6. Insomnia: We'll continue melatonin 5 mg at at bedtime
[2020-01-26 16:10] LABS: Basophils # (A) 0.1 k/uL (0-0.2); Basophils % (A) 1 %; Eosinophils # (A) 0.1 k/uL (0-0.7); Eosinophils % (A) 1 %; HCT 45.9 % (39.0-53.0); HGB 15.1 gm/dL (13.0-17.5); Lymphocytes # (A) 1.8 k/uL (1.0-4.8); Lymphocytes % (A) 25 %; MCH 29.2 pg (25.0-35.0); MCV 88.5 fL (80.0-100.0); Mean Platelet Volume 7.9; Monocytes # (A) 0.6 k/uL (0-1.0); Monocytes % (A) 8 %; Neutrophils # (A) 4.5 k/uL (1.3-7.7); Neutrophils % (A) 63 %; Platelet Count 234 k/uL (150-450); RBC 5.19 m/uL (4.30-5.90); RDW 12.5 % (11.5-15.5); WBC 7.1 k/uL (3.8-10.6)
[2020-01-26 16:23] LABS: ALT 11 U/L (4-49); AST 19 U/L (17-59); African American GFR (CKD) >90 (>60 ml/min/1.73 sqM); Albumin 4.4 g/dL (3.5-5.0); Alkaline Phosphatase 57 U/L (38-126); Anion Gap 7 mmol/L; Blood Urea Nitrogen 10 mg/dL (9-20); Calcium 9.1 mg/dL (8.4-10.2); Carbon Dioxide 30 mmol/L (22-30); Chloride 102 mmol/L (98-107); Glucose 91 mg/dL (74-99); Non-African American GFR(CKD) >90 (>60 ml/min/1.73 sqM); Potassium 4.3 mmol/L (3.5-5.1); Sodium 139 mmol/L (137-145); Total Bilirubin 0.4 mg/dL (0.2-1.3); Total Protein 6.9 g/dL (6.3-8.2)
[2020-01-26] MEDS: MIRTAZAPINE 15 MG TAB PO SCH (21:13)
[2020-01-26] MEDS: MONTELUKAST 10 MG TAB PO SCH (21:14)
[2020-01-26] MEDS: MELATONIN 5 MG TABLET PO SCH (21:14)
--- NOTE | 2020-01-26 22:37 | P.PN ---
Progress Note - Text Progress Note Date: 01/26/20 Subjective: Patient was seen today as a cross coverage for Dr. Andrew . The patient was evaluated, chart reviewed, case discussed with the treatment team. Patient reports good sleep, and appetite was reported as "fine". Patient has been going to groups and other unit activities. The patient is compliant with his medications and denies any adverse reactions. Reports his depression is "much better", and denies any S/H ideation. Denies psychotic or manic symptoms. Reports no mood swings but still have high anxiety. Reports feeling emotionally stable and ready for discharge on Tuesday as been told by his primary psychiatrist. Reports severe chest pain since last night with SOB. The pain comes and goes and very strong at middle of his chest and sometimes made him drowsy. EKG ordered immediately which came back WNL and medical team consulted who ordered further work up and referred pt to silk screen painter because history of defibrillator. Objective: Vitals has been reviewed. Mental status examination; Appearance: The patient appears stated age, adequately groomed and dressed, no specific features. Gait/posture: Normal gait, Normal arm swinging: No abnormal movements. Attitude and behavior: engaged, cooperative, eye contact. Motor activity: Normal psychomotor activity Speech: Normal rate, tone. Mood: Anxious, depressed Affect: Constricted Thought form: goal-directed, linear, coherent. Thought content: Non-delusional, denies suicidal thoughts, denies homicidal tho ughts, denies intentions or plans. Perception: Denies any auditory or visual hallucinations Attention: No impairment. Orientation: Patient patient was fully oriented to time place person and situati on. Insight: Patient has fair insight about his psychiatric disorder. Judgment: Patient has fair judgment about his psychiatric treatment. Assessment: Major depressive disorder, recurrent severe without psychotic features. Plan: Continue inpatient level of care due to need for further stabilization on medications. Precautions: Continue 15 minutes check for safety. Consider medical consultation if any acute medical issues arises. Medical team consulted for chest pain, EKG ordered, Enzymes and Echo ordered, and referred to silk screen painter by medical team Provide the patient individual, group therapy, substance use disorder counseling to give better insight and learn coping skills. Medications: Paxil and Remeron for depression and Remeron to help with insomnia Continue PRN psych medications Continue non-psychiatric medications for management of co-morbid medical problems. Discharge patient to OUTPATIENT services upon a stabilization
[2020-01-27 07:08] VITALS: PULSE 89
[2020-01-27] MEDS: FLUTICASONE 110 MCG INHALER (MHU) INHALATION SCH (08:40)
[2020-01-27] MEDS: PARoxetine 20 MG TAB PO SCH (08:40)
[2020-01-27] MEDS: METOPROLOL TARTRATE 25 MG TAB PO SCH ×2 (08:40→20:36)
--- NOTE | 2020-01-27 13:07 | P.PN ---
Progress Note - Text Progress Note Date: 01/27/20 Subjective: Patient was seen today as a cross coverage for Dr. Andrew . The patient was evaluated, chart reviewed, case discussed with the treatment team. Patient reports feeling stable emotionally and he denies depression, mood swings, or suicidal. Reports anxiety is manageable and he denies any hallucinations, or manic symptoms. Patient reports continued to have good sleep and fair appetite and he has been going to groups and other unit activities. Patient continued to take his medications and he denies any side effects. Reports chest pain is much better today but he is still having shortness of breath when he walks. Patient was seen by medical team yesterday, EKG obtained which showed no abnormalities, and patient is a scheduled to see network support administrator, and echocardiogram tomorrow. Patient reports feeling stable to be discharged on Tuesday as discussed with his primary team. Objective: Vitals has been reviewed. Mental status examination; Appearance: The patient appears stated age, adequately groomed and dressed, no specific features. Gait/posture: Normal gait, Normal arm swinging: No abnormal movements. Attitude and behavior: engaged, cooperative, eye contact. Motor activity: Normal psychomotor activity Speech: Normal rate, tone. Mood: Anxious, depressed Affect: Constricted Thought form: goal-directed, linear, coherent. Thought content: Non-delusional, denies suicidal thoughts, denies homicidal thoughts, denies intentions or plans. Perception: Denies any auditory or visual hallucinations Attention: No impairment. Orientation: Patient patient was fully oriented to time place person and situation. Insight: Patient has fair insight about his psychiatric disorder. Judgment: Patient has fair judgment about his psychiatric treatment. Assessment: Major depressive disorder, recurrent severe without psychotic features. Plan: Continue inpatient level of care due to need for further stabilization on medications. Precautions: Continue 15 minutes check for safety. Medical team consulted for chest pain, EKG ordered, Enzymes and Echo ordered, and referred to network support administrator by medical team Provide the patient individual, group therapy, substance use disorder counseling to give better insight and learn coping skills. Medications: Paxil and Remeron for depression and Remeron to help with insomnia Continue PRN psych medications Continue non-psychiatric medications for management of co-morbid medical problems. Discharge patient to OUTPATIENT services upon a stabilization
[2020-01-27] MEDS ORDERED: AZITHROMYCIN 500 MG TAB PO STA (16:01)
[2020-01-27] MEDS ORDERED: ALBUTEROL INHALER 60 PUFF/8 GM INHALER (MHU) INHALATION PRN (16:01)
--- NOTE | 2020-01-27 16:08 | P.PN ---
Subjective Progress Note Date: 01/27/20 This is a 29-year-old male patient of Dr. Schwartz with medical history of asthma, chest pain, GERD, questionable seizure disorder, syncope with permanent pacemaker, and depression. Patient reports increased stress related to his children's illnesses and had suicidal thoughts. 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 Patient was admitted to the psychiatric floor and was seen by psychology. Patient was started on mirtazapine and Paxil was decreased to 20 mg daily. Patient was seen this morning in [facility], discussed 3 of his children have different illnesses with seizure disorder, another child needs a lung transplant, and currently working up 3-year-old for brain tumor patient reported. Patient believes his depression also got worse when started on steroids. Will continue to follow patient along with psychology and their recommendations. Labs were reviewed, and vital signs are stable, she was afebrile heart rate 84, blood pressure 115/65, satting 100% on room air. 01/25 patient by the nurse that patient is having chest heaviness associated with shortness of breath and dizziness since the discontinuation of fludrocortisone. Patient vitals this morning suggests a temp of 97.9 pulse 80 blood pressure 98/64 that increased to 136/90. He does endorses dizziness associated with shortness of breath and chest heaviness since early in the morning. Patient had pacemaker placed [address] Hackett for syncope and was placed on fludrocortisone since then. EKG done that was negative for any ST or T-wave changes patient had a atrial paced rhythm. Labs are ordered included a CBC, CMP, troponin and magnesium. Orthostatics ordered and patient encouraged to a in drink plenty of fluids. Midodrine initiated at 10 mg 3 times a day. Cardiology consulted. 01/26 patient examined today. 2. Shortness of breath and chest heaviness. Cardiology has evaluated the patient is recommended echocardiogram. Orthostatics were obtained and the patient did have a negative. Cortisol levels came back negative for adrenal insufficiency. Patient does document stress and slight anxiety and he is not sure what he will do on discharge. He does have underlying asthma and does feel improvement with pro-air. We will order a chest x-ray to rule out pneumonia. Patient may benefit from a short course of azithromycin and increasing the frequency of proair. Review of Systems General: Patient denies fever, chills,nausea, or vomiting. Positive for vertigo HEENT: No visual changes. No eye pain. No nasal symptoms. No dysphagia.No odyn ophagia. No ENT pain. Endorses swelling of the eyes Cardiac: Positive for chest pain and shortness of breath no palpitation Pulmonary: Positive for shortness of breath GI: No abdominal pain. No diarrhea. No constipation. No bowel habit changes. No melena. No hematochezia. : No dysuria.No hematuria. No hesitancy. No urgency. Musculoskeletal: No musculoskeletal pain. Integumentary: Denies rash. Denies pruritis. Neurologic: Denies any lateralizing weakness. Denies headache. Denies numbness. Denies tingling. No seizure activity. Denies TIA or CVA. Endocrine: Denies Fatigue Heme/Onc: Denies anemia. Denies cancer. Denies adenopathy. Allergic/Immunologic: Denies allergies Psych: Increased depression Objective - Vital Signs Vital signs: Vital Signs Temp 97.8 F 01/27/20 12:37 Pulse 89 01/27/20 06:36 Resp 16 01/27/20 06:36 BP 119/71 01/27/20 06:36 Pulse Ox 100 01/23/20 16:08 Intake & Output 01/26/20 01/27/20 01/27/20 18:59 06:59 18:59 Weight 83.4 kg - Exam General: Patient awake alert and oriented x 3. No acute distress. HEENT: Sclerae are clear. Appears tired and puffiness involving the lower eyelid Pupils equal, round and reactive to light bilaterally. No cervical adenopathy. No pharyngeal erythema or exudate. No thyromegaly. Lymphatic: No anterior cervical adenopathy. Chest: Heart regular in rate and rhythm positive S1 and S2. No S3. No S4. No clicks, rubs or murmurs. Lungs: Clear to auscultation bilaterally. No wheezes rales or rhonchi. Respirations even and nonlabored. Abdomen/GI: Bowel sounds present in all 4 quadrants. Bowel sounds normoactive. No abdominal tenderness. No mass. No hepatomegaly or splenomegaly. No bruits. Musculoskeletal/ Extremities: No tenderness on muscular exam. No ecchymosis. Vascular: Radial pulses equal. 2/4. Skin: No rash. Neurologic: Awake, alert and oriented times 3. No lateralizing deficits noted on gross inspection. Psychiatric: Flat affect - Labs CBC & Chem 7: 01/26/20 15:08 01/26/20 15:08 Assessment and Plan Plan: 1: Depression: Patient was admitted to psychiatric floor for evaluation. Psychology seen patient decrease Paxil to 20 mg by mouth daily and added mirtazapine increased to 30 mg at at bedtime. 2. Dizziness with h/o Cardiogenic syncope: Patient has permanent pacemaker in place, was on Florinef 0.1 mg twice a day. florinef discontinued cortisol and ACTH was normal. Orthostatic were negative 3. Chest pain/angina: unclear etiology , labs ordered troponin ordered, ECG ordered. cardiology consulted Continue metoprolol 25 mg by mouth twice a day. 4. Shortness of breath with h/o Mild persistant asthma: No wheezing on examination but patient has decreased air entry with possible bronchitis. Echo ordered per cardiology. On albuterol inhaler as needed along with Flovent. Singulair 10 mg at bedtime. Chest x-ray obtained to rule out pneumonia. Azithromycin 500 day 1, followed by 250 mg po daily X 4 days 5. Generalized Anxiety: Has Ativan when necessary. 6. Insomnia: We'll continue melatonin 5 mg at at bedtime
--- NOTE | 2020-01-27 16:21 | P.CRDCN ---
History of Present Illness Consult date: 01/27/20 History of present illness: This is a 29-year-old gentleman who was admitted to the hospital with the depression related to family issues and stress. This patient has history of syncope in the past and had a pacemaker implantation and has been also on Florinef. Patient had a positive tilt table test also. Patient started complaining of some chest heaviness since his Florinef was discontinued. His claims that heaviness increases on deep breathing and movement of the chest. It appears he had similar discomfort in the past. His EKG did not reveal any acute changes. Cardiac enzymes are negative. At this point. His chest pains appear to be atypical. We will get any echocardiogram. Further recommendations depend upon the clinical course Review of Systems As per the chart Past Medical History Past Medical History: Asthma, Chest Pain / Angina, GERD/Reflux, Musculoskeletal Disorder, Seizure Disorder, Syncope Additional Past Medical History / Comment(s): SEE DR ROJAS H&P. CMP. Pacemaker 06/13/2014. SYNCOPAL EPISODES ONGOING. LOW BLOOD PRESSURE. VERTIGO R/T DIZZYNESS. UPON STANDING LT ARM & LEG GO NUMB. EEGs, Showed Seizure-like Activity, Diagnosed w/ Seizures but Never physically had one. HX RUPTURED DISCS IN BACK, HAD PAIN INJ., unable to stand for longer than 12 minutes, never had a seizure, only diagnosed, History of Any Multi-Drug Resistant Organisms: None Reported Past Surgical History: Adenoidectomy, Hernia Repair, Pacemaker, Tonsillectomy Additional Past Surgical History / Comment(s): TILT TABLE. EP STUDY. STATES MULT HERNIA REPAIRS. PACEMAKER [employer] 05/2014 Past Anesthesia/Blood Transfusion Reactions: Motion Sickness Type of Cardiac Device: Permanent Pacemaker Device Placement Date:: 2014 Past Psychological History: Anxiety, Depression Smoking Status: Never smoker Past Alcohol Use History: None Reported Past Drug Use History: None Reported - Past Family History Father Family Medical History: Chest Pain / Angina, Coronary Artery Disease (CAD) Brother(s) Family Medical History: No Reported History Sister(s) Family Medical History: No Reported History Daughter(s) Family Medical History: No Reported History Mother Family Medical History: Cancer Additional Family Medical History / Comment(s): BREAST Medications and Allergies Home Medications Medication Instructions Recorded Confirmed Type Fludrocortisone [Florinef] 0.1 mg PO DAILY 05/13/14 01/23/20 History Metoprolol Tartrate [Lopressor] 12.5 mg PO DAILY 01/19/16 01/23/20 History Montelukast [Singulair] 10 mg PO HS 01/19/16 01/23/20 History PARoxetine HCL [Paxil] 30 mg PO DAILY 01/19/16 01/23/20 History Beclomethasone Dipropionate [Qvar 1 puff INHALATION RT-DAILY 04/27/18 01/23/20 History 80 mcg] Albuterol Sulfate [Albuterol 2 puff PO RT-Q6H PRN 01/23/20 01/23/20 History Sulfate Hfa] Allergies Allergy/AdvReac Type Severity Reaction Status Date / Time ibuprofen [From Motrin] Allergy Dyspnea Verified 01/23/20 16:36 Physical Exam Vitals: Vital Signs Temp Pulse Resp BP BP 01/27/20 12:37 97.8 F 01/27/20 06:36 98 F 89 16 119/71 01/26/20 21:19 18 121/88 Intake and Output 01/27/20 01/27/20 01/27/20 06:59 14:59 22:59 Other: Weight 83.4 kg GENERAL EXAM: Patient is alert and oriented and doesn't appear to be in any acute distress HEENT: Normocephalic. Normal reaction of pupils, equal size, normal range of extraocular motion. No erythema or exudates in the throat. NECK: No masses, no nuchal rigidity. CHEST: No chest wall deformity. LUNGS: Equal air entry with no crackles or wheeze. HEART: S1 and S2 normal with no audible mumurs or gallops. Regular rhythm, femorals equal on both sides.. ABDOMEN: No hepatosplenomegaly, normal bowel sounds, no guarding or rigidity. SKIN: No rashes CENTRAL NERVOUS SYSTEM: No focal deficits. EXTREMITIES: No cyanosis, clubbing or edema. Results 01/26/20 15:08 01/26/20 15:08 Cardiac Enzymes 01/26/20 01/26/20 Range/Units 15:08 15:08 AST 19 (17-59) U/L Troponin I <0.012 (0.000-0.034) ng/mL Comprehensive Metabolic Panel 01/26/20 Range/Units 15:08 Sodium 139 (137-145) mmol/L Potassium 4.3 (3.5-5.1) mmol/L Chloride 102 (98-107) mmol/L Carbon Dioxide 30 (22-30) mmol/L BUN 10 (9-20) mg/dL Creatinine 0.79 (0.66-1.25) mg/dL Glucose 91 (74-99) mg/dL Calcium 9.1 (8.4-10.2) mg/dL AST 19 (17-59) U/L ALT 11 (4-49) U/L Alkaline Phosphatase 57 (38-126) U/L Total Protein 6.9 (6.3-8.2) g/dL Albumin 4.4 (3.5-5.0) g/dL Current Medications Generic Name Dose Route Start Last Admin Trade Name Freq PRN Reason Stop Dose Admin Acetaminophen 650 mg 01/23/20 14:37 01/24/20 09:06 Tylenol Tab PO 650 mg Q4HR PRN Administration Pain/Discomfort Al Hydroxide/Mg Hydroxide 30 ml 01/23/20 14:37 Maalox PO Q4HR PRN GI Upset Albuterol Sulfate 2 puff 01/27/20 16:01 Ventolin Hfa Inhaler (Mhu) INHALATION RT-Q4H PRN Shortness Of Breath Azithromycin 250 mg 01/28/20 16:00 Zithromax PO DAILY@1600 DEBRA Fluticasone Propionate 1 puff 01/24/20 08:00 01/27/20 08:40 Flovent 110 Mcg Inhaler (Mhu) INHALATION 1 puff RT-DAILY DEBRA Administration Lorazepam 1 mg 01/23/20 14:37 01/23/20 21:45 Ativan PO 1 mg TID PRN Administration Anxiety, Agitation Magnesium Hydroxide 2,400 mg 01/23/20 14:37 Milk Of Magnesia PO DAILY PRN Constipation Melatonin 5 mg 01/24/20 21:00 01/26/20 21:14 Melatonin PO 5 mg HS DEBRA Administration Metoprolol Tartrate 25 mg 01/23/20 21:00 01/27/20 08:40 Lopressor PO 25 mg BID DEBRA Administration Mirtazapine 30 mg 01/25/20 21:00 01/26/20 21:13 Remeron PO 30 mg HS DEBRA Administration Montelukast Sodium 10 mg 01/23/20 21:00 01/26/20 21:14 Singulair PO 10 mg HS DEBRA Administration Paroxetine HCl 20 mg 01/25/20 09:00 01/27/20 08:40 Paxil PO 20 mg DAILY DEBRA Administration Ziprasidone 20 mg 01/23/20 14:37 Geodon IM BID PRN Agitation or Acute Psychosis Intake and Output 01/27/20 01/27/20 01/27/20 06:59 14:59 22:59 Other: Weight 83.4 kg Patient Weight 01/28/20 06:59 Weight 83.4 kg 01/26/20 15:08 01/26/20 15:08 EKG Interpretations (text) Atrial pacer rhythm Assessment and Plan (1) Chest pain Current Visit: Yes Status: Acute Code(s): R07.9 - CHEST PAIN, UNSPECIFIED SNOMED Code(s): 99440934 (2) Depression Current Visit: Yes Status: Acute Code(s): F32.9 - MAJOR DEPRESSIVE DISORDER, SINGLE EPISODE, UNSPECIFIED SNOMED Code(s): 33465298 (3) Neurocardiogenic syncope Current Visit: No Status: Acute Code(s): R55 - SYNCOPE AND COLLAPSE SNOMED Code(s): 158353141 Plan: He chest pains appear to be typical. Enzymes are negative. EKGs are negative. Waiting for the echo report. Further recommendations depend upon the clinical course
--- NOTE | 2020-01-27 17:17 | XR ---
EXAMINATION TYPE: XR chest 2V DATE OF EXAM: 01/27/2020 COMPARISON: 03/17/2019 HISTORY: 29-year-old male rule out bronchitis, chest pain TECHNIQUE: Frontal and lateral views FINDINGS: The cardiomediastinal silhouette, aorta, and pulmonary vasculature are within normal limits. Stable h igh density nodularity medial right upper lobe, possible prominent rib end or calcified granuloma. Leslie ngs and pleural spaces are clear. Left anterior chest wall pacemaker generator with right atrial and right ventricular leads. IMPRESSION: No acute cardiopulmonary process.
[2020-01-27] MEDS: MIRTAZAPINE 15 MG TAB PO SCH (20:35)
[2020-01-27] MEDS: MONTELUKAST 10 MG TAB PO SCH (20:36)
[2020-01-27] MEDS: MELATONIN 5 MG TABLET PO SCH (20:36)
[2020-01-28 07:15] VITALS: RESP 16; TEMP 97.8
--- NOTE | 2020-01-28 08:44 | P.DS ---
Providers Date of admission: 01/23/20 14:31 Expected date of discharge: 01/28/20 Attending physician: Marie Andrew MD Consults: 01/23/20 14:37 Consult Physician Routine Consulting Provider: Dianne Ramirez Consult Reason/Comments: H and P Do you want consulting provider notified?: Yes 01/26/20 14:42 Consult Physician Routine Consulting Provider: Jayden Thakur Consult Reason/Comments: chest heaviness/feeling weak, pt has pacemaker Do you want consulting provider notified?: Yes Primary care physician: Woody Wilkins [facility] Course: Hospital course the patient was admitted due to suicidality he has been depressed for several years since he had a pacemaker put in that has not helped all that much. Then he had steroids added and since then has struggled even more with depression he was being treated with Paxil 30 mg and it did not seem to be working. Partly because it only works on serotonin and does not help with norepinephrine and dopamine the patient has significant problems with energy focus enjoyment and motivation. The patient has been attending groups and participating well and has found them helpful Staff report that the patient is oriented to person place time and circumstance denies any hallucinations and delusions does not evidence any he is not tearful or aggressive no suicidality or homicidality his hygiene is good and his been sleeping well he is compliant with medications. Mental status exam the patient is alert cooperative good eye contact serious affect without seeming sad excellent self care gait and station are normal psychomotor activity is normal he says he is having no more shortness of breath or chest pain and does have follow-up appointments arranged to help him continue to deal with the breathing and oxygenation issues. No evidence of psychosis response times are reasonable. Medications I decreased the Paxil because the Remeron will increase its effectiveness so going from 30-20 and adding Remeron is the same his increasing to 40 mg Remeron roughly doubles impact of the Paxil, plus the Paxil was giving him some uncomfortable side effects. He tolerated Remeron 30 mg without excessive sleepiness or hunger. He has follow-up arranged for both his medications and his counseling I reviewed with him how to get the best out of his counseling. Assessment: Despite significant medical stress over the weekend where he got short of breath and had to be seen by the vocational nursing instructor the patient does not have any suicidal thoughts and is positive about being discharged and I believe that he is safe and is committed to going to counseling and working on a more positive response to life. He is also tolerating his medications well and I think that will help Health Concerns: The patient has multiple medical problems and over the weekend he got chest pain and short of breath but he had the full workup and does not seem to be a heart attack he does have times where his oxygen decreases but he has appointments for follow-up outpatient. I need to emphasize that he was not taking his fludrocortisone Florinef twice a day he was not even taking it once a day he wou ld use it as a when necessary yet I think it was contributing to his depression so I did discontinue that and it is unlikely to be that which caused his shortness of breath. His vital signs today temperature 97.8 heart rate 89 respiration 16 blood pressure 118/63 Pertinent Studies: He had labs when he was in here in the hematology was fine general chemistry was fine he also had a chest x-ray cardiac consult and I'll conclude he did not have a heart attack Procedures: None Plan - Discharge Summary Discharge Rx Participant: No New Discharge Prescriptions: No Action Fludrocortisone [Florinef] 0.1 mg PO DAILY PARoxetine HCL [Paxil] 30 mg PO DAILY Montelukast [Singulair] 10 mg PO HS Metoprolol Tartrate [Lopressor] 12.5 mg PO DAILY Beclomethasone Dipropionate [Qvar 80 mcg] 1 puff INHALATION RT-DAILY Albuterol Sulfate [Albuterol Sulfate Hfa] 2 puff PO RT-Q6H PRN PRN Reason: Shortness Of Breath Discharge Medication List Fludrocortisone [Florinef] 0.1 mg PO DAILY 05/13/14 [History] Metoprolol Tartrate [Lopressor] 12.5 mg PO DAILY 01/19/16 [History] Montelukast [Singulair] 10 mg PO HS 01/19/16 [History] PARoxetine HCL [Paxil] 30 mg PO DAILY 01/19/16 [History] Beclomethasone Dipropionate [Qvar 80 mcg] 1 puff INHALATION RT-DAILY 04/27/18 [History] Albuterol Sulfate [Albuterol Sulfate Hfa] 2 puff PO RT-Q6H PRN 01/23/20 [History] Follow up Appointment(s)/Referral(s): Woody Shields MD [Primary Care Provider] - 1-2 days Activity/Diet/Wound Care/Special Instructions: Activity and diet as tolerated. Avoid the use of street drugs and alcohol. Take all medications as prescribed. When you are in need of refills on your medications please contact your medical provider and/or outpatient psychiatrist to have this done. Please go to scheduled outpatient appointment for aftercare treatment. If symptoms return or become worse, call the crisis line at and/or go to the nearest emergency room for evaluation.
[2020-01-28] MEDS: FLUTICASONE 110 MCG INHALER (MHU) INHALATION SCH (09:02)
[2020-01-28] MEDS: PARoxetine 20 MG TAB PO SCH (09:02)
[2020-01-28] MEDS: METOPROLOL TARTRATE 25 MG TAB PO SCH (09:02)
[2020-01-28 09:04] VITALS: BP 123/82
--- NOTE | 2020-01-28 12:03 | ECHOF ---
Referral Reason:chest pain/weakness MEASUREMENTS -------- HEIGHT: 152.4 cm WEIGHT: 83.0 kg BP: RVIDd: 3.5 cm (< 3.3) IVSd: 1.1 cm (0.6 - 1.1) LVIDd: 4.8 cm (3.9 - 5.3) LVPWd: 1.2 cm (0.6 - 1.1) IVSs: 1.5 cm LVIDs: 3.8 cm LVPWs: 1.1 cm LA Diam: 3.6 cm (2.7 - 3.8) LAESV Index (A-L): 22.66 ml/m Ao Diam: 3.0 cm (2.0 - 3.7) AV Cusp: 2.2 cm (1.5 - 2.6) LA Diam: 3.8 cm (2.7 - 3.8) MV EXCURSION: 20.824 mm (> 18.000) MV EF SLOPE: 137 mm/s (70 - 150) EPSS: 0.4 cm MV E Matias: 0.72 m/s MV DecT: 206 ms MV A Matias: 0.50 m/s MV E/A Ratio: 1.46 RAP: 5.00 mmHg RVSP: 13.79 mmHg FINDINGS -------- Paced rhythm. This was a technically good study. LV size, wall thickness and systolic function are normal, with an EF greater than 55%. The left andrea tricular size is normal. The right ventricle is normal in size. The left atrial size is normal. The right atrial size is normal. The aortic valve is trileaflet, and appears structurally normal. No aortic stenosis or regurgitation. There is trace mitral regurgitation. Mild tricuspid regurgitation present. Right ventricular systolic pressure is normal at < 35 mmHg. There is no pulmonic regurgitation present. The aortic root size is normal. There is no pericardial effusion. CONCLUSIONS -------- 1. LV size, wall thickness and systolic function are normal, with an EF greater than 55%. 2. The left ventricular size is normal. 3. The right ventricle is normal in size. 4. The left atrial size is normal. 5. The right atrial size is normal. 6. There is trace mitral regurgitation. 7. Mild tricuspid regurgitation present. CASTING AND CURING OPERATOR: Jenise Mane RDCS
[2020-01-28] MEDS ORDERED: AZITHROMYCIN 250 MG TAB PO SCH (16:00)
== END 2020-01-28 13:00 | disposition home or self-care (01) | DRG 885 ==
LOC: EC 11:36 → 3MHU 14:31
PROVIDERS: ADMIT Psychiatry & Neurology Psychiatry; ATTEND Psychiatry & Neurology Psychiatry
DX: F33.2 Major depressive disorder, recurrent severe without psychotic features (principal); R45.851 Suicidal ideations; R00.1 Bradycardia, unspecified; I20.9 Angina pectoris, unspecified; J45.909 Unspecified asthma, uncomplicated; F41.1 Generalized anxiety disorder; G47.00 Insomnia, unspecified; R55 Syncope and collapse; K21.9 Gastro-esophageal reflux disease without esophagitis; Z79.51 Long term (current) use of inhaled steroids; Z79.52 Long term (current) use of systemic steroids; Z79.899 Other long term (current) drug therapy; Z87.39 Personal history of other diseases of the musculoskeletal system and connective tissue; Z86.69 Personal history of other diseases of the nervous system and sense organs; Z95.0 Presence of cardiac pacemaker; Z90.89 Acquired absence of other organs; Z87.19 Personal history of other diseases of the digestive system; Z98.890 Other specified postprocedural states; Z88.6 Allergy status to analgesic agent; Z82.49 Family history of ischemic heart disease and other diseases of the circulatory system
CPT/HCPCS: 71046; 80053; 82024; 82075; 82533; 83735; 84443; 84484; 85025; 93005; 93306; 99285

== ENCOUNTER 2020-07-03 21:39 | Emergency (ER) | payer OTHER ==
[2020-07-03 21:47] VITALS: BP 160/108; PULSE 90; RESP 18; TEMP 98
[2020-07-03] MEDS ORDERED: SODIUM CHLORIDE 0.9% 1,000 ML IV STA (21:59)
[2020-07-03 22:12] LABS: Basophils # (A) 0.1 k/uL (0-0.2); Basophils % (A) 1 %; Eosinophils # (A) 0.1 k/uL (0-0.7); Eosinophils % (A) 1 %; HCT 46.4 % (39.0-53.0); HGB 15.9 gm/dL (13.0-17.5); Lymphocytes # (A) 2.9 k/uL (1.0-4.8); Lymphocytes % (A) 37 %; MCH 29.5 pg (25.0-35.0); MCHC 34.2 g/dL (31.0-37.0); MCV 86.3 fL (80.0-100.0); Mean Platelet Volume 7.2; Monocytes # (A) 0.5 k/uL (0-1.0); Monocytes % (A) 7 %; Neutrophils # (A) 4.2 k/uL (1.3-7.7); Neutrophils % (A) 53 %; Platelet Count 248 k/uL (150-450); RBC 5.38 m/uL (4.30-5.90); RDW 11.9 % (11.5-15.5)
--- NOTE | 2020-07-03 22:14 | ED ---
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 Patient states that today he got the new iPhone 12, states he read that people have had problems with their pacemaker with use of the phone. Patient states about 30 minutes after using the phone for the first time he started to feel poorly. States that he started to have shortness of breath and a numb feeling in the left arm. Patient states he had a short episode of palpitations lasting a few seconds. Denies any chest pain, nausea, vomiting, dizziness, or weakness. Denies any syncope. Denies fever, chills, or cough. Patient denies any recent rash, fever, chills, cough, abdominal pain, nausea, vomiting, diarrhea, constipation, back pain, hematuria, dysuria, urinary urgency, urinary frequency, headache, visual changes, or any other complaints. - Related Data Home Medications Medication Instructions Recorded Confirmed Metoprolol Tartrate [Lopressor] 12.5 mg PO DAILY 01/19/16 01/23/20 Montelukast [Singulair] 10 mg PO HS 01/19/16 01/23/20 Beclomethasone Dipropionate [Qvar 1 puff INHALATION RT-DAILY 04/27/18 01/23/20 80 mcg] Albuterol Sulfate [Albuterol 2 puff PO RT-Q6H PRN 01/23/20 01/23/20 Sulfate Hfa] Previous Rx's Medication Instructions Recorded Azithromycin [Zithromax Tri-Martin (3 500 mg PO DAILY 5 Days #5 tab 01/28/20 tabs)] Azithromycin [Zithromax] 250 mg PO DAILY@1600 tab 01/28/20 Mirtazapine [Remeron] 30 mg PO HS 30 Days #60 tab 01/28/20 PARoxetine [Paxil] 20 mg PO DAILY 30 Days #30 tab 01/28/20 Allergies Allergy/AdvReac Type Severity Reaction Status Date / Time ibuprofen [From Motrin] Allergy Dyspnea Verified 07/03/20 21:44 Review of Systems ROS Statement: Those systems with pertinent positive or pertinent negative responses have been documented in the HPI. ROS Other: All systems not noted in ROS Statement are negative. Past Medical History Past Medical History: Asthma, Chest Pain / Angina, GERD/Reflux, Musculoskeletal Disorder, Seizure Disorder, Syncope Additional Past Medical History / Comment(s): SEE DR CRYSTAL Pedraza. CMP. Pacemaker 06/13/2014. SYNCOPAL EPISODES ONGOING. LOW BLOOD PRESSURE. VERTIGO R/T DIZZYNESS. UPON STANDING LT ARM & LEG GO NUMB. EEGs, Showed Seizure-like Activity, Diagnosed w/ Seizures but Never physically had one. HX RUPTURED DISCS IN BACK, HAD PAIN INJ., unable to stand for longer than 12 minutes, never had a seizure, only diagnosed, History of Any Multi-Drug Resistant Organisms: None Reported Past Surgical History: Adenoidectomy, Hernia Repair, Pacemaker, Tonsillectomy Additional Past Surgical History / Comment(s): TILT TABLE. EP STUDY. STATES MULT HERNIA REPAIRS. PACEMAKER [employer] 05/2014 Past Anesthesia/Blood Transfusion Reactions: Motion Sickness Type of Cardiac Device: Permanent Pacemaker Device Placement Date:: 2014 Past Psychological History: Anxiety, Depression Smoking Status: Never smoker Past Alcohol Use History: None Reported Past Drug Use History: None Reported - Past Family History Father Family Medical History: Chest Pain / Angina, Coronary Artery Disease (CAD) Brother(s) Family Medical History: No Reported History Sister(s) Family Medical History: No Reported History Daughter(s) Family Medical History: No Reported History Mother Family Medical History: Cancer Additional Family Medical History / Comment(s): BREAST General Exam Limitations: no limitations General appearance: alert, in no apparent distress, other (Physical well- developed, well-nourished adult male patient in no acute distress. Vital signs upon presentation are temperature 98.0F, pulse 90, respirations 18, blood pressure 160/108, pulse ox 100% on room air) Respiratory exam: Present: normal lung sounds bilaterally. Absent: respiratory distress, wheezes, rales, rhonchi, stridor Cardiovascular Exam: Present: regular rate, normal rhythm, normal heart sounds. Absent: systolic murmur, diastolic murmur, rubs, gallop, clicks GI/Abdominal exam: Present: soft, normal bowel sounds. Absent: distended, tenderness, guarding, rebound, rigid Neurological exam: Present: alert, oriented X3, CN II-XII intact Psychiatric exam: Present: normal affect, normal mood Skin exam: Present: warm, dry, intact, normal color. Absent: rash Course Vital Signs 07/03/20 21:40 Temperature 98.0 F Pulse Rate 90 Respiratory 18 Rate Blood Pressure 160/108 O2 Sat by Pulse 100 Oximetry EKG Findings - EKG Comments: EKG Findings:: EKG obtained at 2155 shows electronic atrial pacemaker. Ventricular rate is 86, [place] interval 134, QRS duration 102, QT 334, QTC 399. No evidence of ST elevation or depression. Medical Decision Making - Medical Decision Making 29-year-old male patient has a past medical history significant for cardiogenic syncope with pacemaker implantation in 2014 presents to the emergency department today for evaluation of shortness of breath and left arm numbness. Patient believes this may be related to his new iphone 12 which has been known to cause problems with pacemakers. Physical examination is unremarkable. Lungs are clear to auscultation. Vital signs are within normal ranges. EKG shows an atrial paced rhythm at 86 bpm. Labs are unremarkable. We did perform an interrogation of his [employer] pacemaker which revealed no episodes or events today. I did discuss findings and results with the patient. He'll be discharged to follow-up with his primary care physician and inventory management specialist as soon as possible. Return parameters were discussed in detail. He verbalizes understanding and agrees with this plan. Case discussed with my attending Dr. Goss. - Lab Data Result diagrams: 07/03/20 22:03 07/03/20 22:03 Lab Results 07/03/20 07/03/20 07/03/20 Range/Units 22:03 22:03 22:03 WBC 8.0 (3.8-10.6) k/uL RBC 5.38 (4.30-5.90) m/uL Hgb 15.9 (13.0-17.5) gm/dL Hct 46.4 (39.0-53.0) % MCV 86.3 (80.0-100.0) fL MCH 29.5 (25.0-35.0) pg MCHC 34.2 (31.0-37.0) g/dL RDW 11.9 (11.5-15.5) % Plt Count 248 (150-450) k/uL MPV 7.2 Neutrophils % 53 % Lymphocytes % 37 % Monocytes % 7 % Eosinophils % 1 % Basophils % 1 % Neutrophils # 4.2 (1.3-7.7) k/uL Lymphocytes # 2.9 (1.0-4.8) k/uL Monocytes # 0.5 (0-1.0) k/uL Eosinophils # 0.1 (0-0.7) k/uL Basophils # 0.1 (0-0.2) k/uL PT 10.4 (9.0-12.0) sec INR 1.0 (<1.2) APTT 25.1 (22.0-30.0) sec Sodium 138 (137-145) mmol/L Potassium 3.7 (3.5-5.1) mmol/L Chloride 102 (98-107) mmol/L Carbon Dioxide 28 (22-30) mmol/L Anion Gap 8 mmol/L BUN 16 (9-20) mg/dL Creatinine 1.01 (0.66-1.25) mg/dL Est GFR (CKD-EPI)AfAm >90 (>60 ml/min/1.73 sqM) Est GFR (CKD-EPI)NonAf >90 (>60 ml/min/1.73 sqM) Glucose 94 (74-99) mg/dL Plasma Lactic Acid Severino (0.7-2.0) mmol/L Calcium 9.3 (8.4-10.2) mg/dL Total Bilirubin 0.4 (0.2-1.3) mg/dL AST 24 (17-59) U/L ALT 19 (4-49) U/L Alkaline Phosphatase 53 (38-126) U/L Troponin I (0.000-0.034) ng/mL Total Protein 7.8 (6.3-8.2) g/dL Albumin 4.8 (3.5-5.0) g/dL 07/03/20 07/03/20 Range/Units 22:03 22:03 WBC (3.8-10.6) k/uL RBC (4.30-5.90) m/uL Hgb (13.0-17.5) gm/dL Hct (39.0-53.0) % MCV (80.0-100.0) fL MCH (25.0-35.0) pg MCHC (31.0-37.0) g/dL RDW (11.5-15.5) % Plt Count (150-450) k/uL MPV Neutrophils % % Lymphocytes % % Monocytes % % Eosinophils % % Basophils % % Neutrophils # (1.3-7.7) k/uL Lymphocytes # (1.0-4.8) k/uL Monocytes # (0-1.0) k/uL Eosinophils # (0-0.7) k/uL Basophils # (0-0.2) k/uL PT (9.0-12.0) sec INR (<1.2) APTT (22.0-30.0) sec Sodium (137-145) mmol/L Potassium (3.5-5.1) mmol/L Chloride (98-107) mmol/L Carbon Dioxide (22-30) mmol/L Anion Gap mmol/L BUN (9-20) mg/dL Creatinine (0.66-1.25) mg/dL Est GFR (CKD-EPI)AfAm (>60 ml/min/1.73 sqM) Est GFR (CKD-EPI)NonAf (>60 ml/min/1.73 sqM) Glucose (74-99) mg/dL Plasma Lactic Acid Severino 0.7 (0.7-2.0) mmol/L Calcium (8.4-10.2) mg/dL Total Bilirubin (0.2-1.3) mg/dL AST (17-59) U/L ALT (4-49) U/L Alkaline Phosphatase (38-126) U/L Troponin I <0.012 (0.000-0.034) ng/mL Total Protein (6.3-8.2) g/dL Albumin (3.5-5.0) g/dL - Radiology Data Radiology results: report reviewed, image reviewed Two-view x-ray of the chest is obtained. Report was reviewed in its entirety. Impression by Dr. Reyes shows no cardio pulmonary disease. Normal heart. No change. Disposition Clinical Impression: Shortness of breath, Paresthesia Disposition: HOME SELF-CARE Condition: Good Instructions (If sedation given, give patient instructions): Paresthesia (ED), Shortness of Breath (ED) Additional Instructions: Follow up with your inventory management specialist for further evaluation as soon as possible. Follow-up with the primary care physician for recheck in 1-2 days. Return to the emergency department for any new, worsening, or concerning symptoms. Is patient prescribed a controlled substance at d/c from ED?: No Referrals: Woody Shields MD [Primary Care Provider] - 1-2 days Time of Disposition: 23:09
--- NOTE | 2020-07-03 22:22 | XR ---
EXAMINATION TYPE: XR chest 2V DATE OF EXAM: 07/03/2020 COMPARISON: 01/27/2020 HISTORY: Chest pain. Difficulty breathing TECHNIQUE: FINDINGS: Heart is normal. Lungs are clear of infiltrate. There is left axillary pacemaker. There is no pleural effusion. Bony thorax is intact. IMPRESSION: No cardiopulmonary disease. Normal heart. No change.
[2020-07-03 22:27] LABS: Partial Thromboplastin Time 25.1 sec (22.0-30.0); Prothrombin Time 10.4 sec (9.0-12.0)
[2020-07-03 22:31] LABS: ALT 19 U/L (4-49); AST 24 U/L (17-59); African American GFR (CKD) >90 (>60 ml/min/1.73 sqM); Albumin 4.8 g/dL (3.5-5.0); Alkaline Phosphatase 53 U/L (38-126); Anion Gap 8 mmol/L; Blood Urea Nitrogen 16 mg/dL (9-20); Calcium 9.3 mg/dL (8.4-10.2); Carbon Dioxide 28 mmol/L (22-30); Chloride 102 mmol/L (98-107); Glucose 94 mg/dL (74-99); Non-African American GFR(CKD) >90 (>60 ml/min/1.73 sqM); Potassium 3.7 mmol/L (3.5-5.1); Sodium 138 mmol/L (137-145); Total Bilirubin 0.4 mg/dL (0.2-1.3); Total Protein 7.8 g/dL (6.3-8.2)
== END 2020-07-03 23:25 | disposition home or self-care (01) ==
LOC: EC 21:39
DX: R06.02 Shortness of breath (principal); R20.2 Paresthesia of skin; J45.909 Unspecified asthma, uncomplicated; Z79.51 Long term (current) use of inhaled steroids; Z88.6 Allergy status to analgesic agent; Z95.0 Presence of cardiac pacemaker; Z90.89 Acquired absence of other organs; Z82.49 Family history of ischemic heart disease and other diseases of the circulatory system
CPT/HCPCS: 36415; 71046; 80053; 83605; 84484; 85025; 85610; 85730; 93005; 96360; 99285

== ENCOUNTER 2020-09-12 11:16 | Emergency (ER) | payer OTHER ==
[2020-09-12 11:20] VITALS: BP 102/60; PULSE 116; RESP 18; TEMP 99
--- NOTE | 2020-09-12 12:10 | XR ---
EXAMINATION TYPE: XR chest 2V DATE OF EXAM: 09/12/2020 COMPARISON: 07/03/2020 HISTORY: 30-year-old male with chest pain TECHNIQUE: PA and lateral views FINDINGS: The cardiomediastinal silhouette, aorta, and pulmonary vasculature are within normal limits. Lungs an d pleural spaces are clear. Left anterior chest wall pacemaker generator with right atrial and right ventricular leads. IMPRESSION: No acute cardiopulmonary process.
[2020-09-12] MEDS ORDERED: ACETAMINOPHEN TAB 325 MG TAB PO STA (12:44)
[2020-09-12] MEDS ORDERED: ONDANSETRON ODT 4 MG TAB PO STA (12:44)
--- NOTE | 2020-09-12 12:45 | ED ---
General Adult HPI - General Chief complaint: Nausea/Vomiting/Diarrhea Stated complaint: chest pain/vomiting/sore throat Time Seen by Provider: 09/12/20 12:05 Source: patient Mode of arrival: ambulatory Limitations: no limitations - History of Present Illness Initial comments: 30-year-old male patient presents to the emergency department today for evaluat ion of cough, congestion, vomiting for the last 2-3 days. Patient states he has felt feverish, temperatures up and around 100F. Denies any sick contacts. Has not received COVID vaccine. He does have a pacemaker. Takes cardizem. He denies any rash, diarrhea, dizziness, or fainting. Patient denies any recent rash, abdominal pain, constipation, back pain, numbness, tingling, dizziness, weakness, hematuria, dysuria, urinary urgency, urinary frequency, headache, visual changes, or any other complaints. - Related Data Home Medications Medication Instructions Recorded Confirmed Diltiazem HCl [Diltiazem HCl 24Hr 120 mg PO DAILY 09/12/20 09/12/20 ER] Previous Rx's Medication Instructions Recorded Albuterol Sulfate [Proair Hfa] 1 - 2 puff INHALATION Q6HR PRN #1 09/12/20 inhaler Ondansetron [Zofran ODT] 4 mg PO Q8HR PRN #10 tab 09/12/20 guaiFENesin-DM 600/30MG [Mucinex 1 each PO Q12HR #10 tab.er.12h 09/12/20 Dm] Allergies Allergy/AdvReac Type Severity Reaction Status Date / Time ibuprofen [From Motrin] Allergy Dyspnea Verified 09/12/20 12:23 Review of Systems ROS Statement: Those systems with pertinent positive or pertinent negative responses have been documented in the HPI. ROS Other: All systems not noted in ROS Statement are negative. Past Medical History Past Medical History: Asthma, Chest Pain / Angina, GERD/Reflux, Musculoskeletal Disorder, Seizure Disorder, Syncope Additional Past Medical History / Comment(s): SEE DR ROJAS H&P. CMP. Pacemaker 06/13/2014. SYNCOPAL EPISODES ONGOING. LOW BLOOD PRESSURE. VERTIGO R/T DIZZYNESS. UPON STANDING LT ARM & LEG GO NUMB. EEGs, Showed Seizure-like Activity, Diagnosed w/ Seizures but Never physically had one. HX RUPTURED DISCS IN BACK, HAD PAIN INJ., unable to stand for longer than 12 minutes, never had a seizure, only diagnosed, History of Any Multi-Drug Resistant Organisms: None Reported Past Surgical History: Adenoidectomy, Hernia Repair, Pacemaker, Tonsillectomy Additional Past Surgical History / Comment(s): TILT TABLE. EP STUDY. STATES MULT HERNIA REPAIRS. PACEMAKER [employer] 05/2014, Past Anesthesia/Blood Transfusion Reactions: Motion Sickness Type of Cardiac Device: Permanent Pacemaker Device Placement Date:: 2014 Past Psychological History: Anxiety, Depression Smoking Status: Never smoker Past Alcohol Use History: None Reported Past Drug Use History: None Reported - Past Family History Father Family Medical History: Chest Pain / Angina, Coronary Artery Disease (CAD) Brother(s) Family Medical History: No Reported History Sister(s) Family Medical History: No Reported History Daughter(s) Family Medical History: No Reported History Mother Family Medical History: Cancer Additional Family Medical History / Comment(s): BREAST General Exam Limitations: no limitations General appearance: alert, in no apparent distress, other (Physical well- developed, well-nourished adult male patient in no acute distress. Vital signs upon presentation are temperature 99.0F, pulse 116, respirations 18, blood pressure 102/60, pulse ox 94% on room air.) Eye exam: Present: normal appearance, PERRL, EOMI. Absent: scleral icterus, conjunctival injection, periorbital swelling ENT exam: Present: normal exam, normal oropharynx, mucous membranes moist Respiratory exam: Present: normal lung sounds bilaterally. Absent: respiratory distress, wheezes, rales, rhonchi, stridor Cardiovascular Exam: Present: normal rhythm, tachycardia, normal heart sounds. Absent: systolic murmur, diastolic murmur, rubs, gallop, clicks GI/Abdominal exam: Present: soft, normal bowel sounds. Absent: distended, tenderness, guarding, rebound, rigid Neurological exam: Present: alert, oriented X3, CN II-XII intact Psychiatric exam: Present: normal affect, normal mood Skin exam: Present: warm, dry, intact, normal color. Absent: rash Course Vital Signs 09/12/20 11:17 Temperature 99 F Pulse Rate 116 H Respiratory 18 Rate Blood Pressure 102/60 O2 Sat by Pulse 94 L Oximetry EKG Findings - EKG Comments: EKG Findings:: EKG obtained at 1125 shows sinus tachycardia with a ventricular rate of 108, VT interval 158, QRS duration 98, QT 304, QTC 407. No evidence of ST elevation or depression. Medical Decision Making - Medical Decision Making 30-year-old male patient presented to the emergency department today for evaluation of cough, chest discomfort, and vomiting. Physical examination was unremarkable. Lungs are clear to auscultation with good air movement. Abdomen soft and nontender. He is given Tylenol and Zofran. He did test positive for COVID-19. Chest x-ray is negative. EKG was unremarkable. I did discuss findings and results with the patient. He will be discharged with Pro Air inhaler, Zofran, Mucinex. He is instructed to follow-up with his primary care physician for recheck in 1-2 days. Return parameters were discussed in detail. He verbalizes understanding and agrees with this plan. Case discussed with my attending Dr. Larson. - Lab Data Lab Results 09/12/20 Range/Units 11:30 Coronavirus (PCR) Detected A (Not Detectd) - Radiology Data Radiology results: report reviewed, image reviewed Two-view x-ray of the chest is obtained. Report was reviewed in its entirety. Impression by Dr. Crum shows no acute cardiopulmonary process. Disposition Clinical Impression: COVID-19 Disposition: HOME SELF-CARE Condition: Good Instructions (If sedation given, give patient instructions): Coronavirus Disease 2019 (COVID-19) Additional Instructions: Clear liquid diet and advance as tolerated. Take medications as directed. Follow-up with her primary care physician for recheck in 1-2 days. Return to emergency department for any new, worsening, or concerning symptoms. Prescriptions: guaiFENesin-DM 600/30MG [Mucinex Dm] 1 each PO Q12HR #10 tab.er.12h Albuterol Sulfate [Proair Hfa] 1 - 2 puff INHALATION Q6HR PRN #1 inhaler PRN Reason: Shortness Of Breath Ondansetron [Zofran ODT] 4 mg PO Q8HR PRN #10 tab PRN Reason: Nausea Is patient prescribed a controlled substance at d/c from ED?: No Referrals: Joaquim Grossman MD [Primary Care Provider] - 1-2 days Time of Disposition: 12:45
== END 2020-09-12 12:58 | disposition home or self-care (01) ==
LOC: EC 11:16
DX: U07.1 COVID-19 (principal); J45.909 Unspecified asthma, uncomplicated; K21.9 Gastro-esophageal reflux disease without esophagitis; F41.9 Anxiety disorder, unspecified; F32.9 Major depressive disorder, single episode, unspecified
CPT/HCPCS: 71046; 87635; 93005; 99285

== ENCOUNTER 2021-02-15 10:30 | Emergency (ER) | payer OTHER ==
[2021-02-15 10:39] VITALS: RESP 18; TEMP 97.8
[2021-02-15 11:47] LABS: Basophils % (A) 1 %; Eosinophils % (A) 1 %; HCT 45.4 % (39.0-53.0); HGB 15.7 gm/dL (13.0-17.5); Lymphocytes # (A) 1.6 k/uL (1.0-4.8); Lymphocytes % (A) 34 %; MCH 30.1 pg (25.0-35.0); MCHC 34.5 g/dL (31.0-37.0); MCV 87.2 fL (80.0-100.0); Mean Platelet Volume 7.8; Monocytes # (A) 0.3 k/uL (0-1.0); Monocytes % (A) 6 %; Neutrophils # (A) 2.7 k/uL (1.3-7.7); Neutrophils % (A) 56 %; Platelet Count 238 k/uL (150-450); RDW 12.4 % (11.5-15.5); WBC 4.8 k/uL (3.8-10.6)
--- NOTE | 2021-02-15 11:53 | XR ---
EXAMINATION TYPE: XR chest 2V DATE OF EXAM: 02/15/2021 COMPARISON: 09/12/2020 HISTORY: 30-year-old male with chest pain TECHNIQUE: PA and lateral views FINDINGS: Left anterior chest wall pacemaker generator with right atrial and right ventricular leads. Heart nor mal size. Aorta and pulmonary vasculature within normal limits. No consolidation or pleural effusion. IMPRESSION: No acute cardiopulmonary process.
[2021-02-15 11:59] LABS: ALT 14 U/L (4-49); AST 21 U/L (17-59); African American GFR (CKD) >90 (>60 ml/min/1.73 sqM); Albumin 4.5 g/dL (3.5-5.0); Alkaline Phosphatase 48 U/L (38-126); Anion Gap 8 mmol/L; Blood Urea Nitrogen 10 mg/dL (9-20); Calcium 9.4 mg/dL (8.4-10.2); Carbon Dioxide 27 mmol/L (22-30); Chloride 104 mmol/L (98-107); Glucose 77 mg/dL (74-99); Magnesium 1.9 mg/dL (1.6-2.3); Non-African American GFR(CKD) >90 (>60 ml/min/1.73 sqM); Potassium 4.3 mmol/L (3.5-5.1); Sodium 139 mmol/L (137-145); Total Bilirubin 0.7 mg/dL (0.2-1.3); Total Protein 7.2 g/dL (6.3-8.2)
[2021-02-15 12:02] LABS: Partial Thromboplastin Time 24.6 sec (22.0-30.0); Prothrombin Time 10.6 sec (9.0-12.0)
--- NOTE | 2021-02-15 12:04 | ED ---
Chest Pain HPI - General Chief Complaint: Chest Pain Stated Complaint: chest pain/vomiting Time Seen by Provider: 02/15/21 10:40 Source: patient Mode of arrival: ambulatory Limitations: no limitations - History of Present Illness Initial Comments: The patient is a 30-year-old male with past medical history of pacemaker placement who presents to the emergency department with reported chest congestion, cough and shortness of breath. He reports that his symptoms have been present for one day. Does have sick contacts with similar symptoms. Reports that both his kids are sick. Denies productive cough. Has not taken any medications for his symptoms. Admits to nausea without vomiting. No fevers. Does admit to chest pressure. No previous history of coronary disease. Denies any lower externally swelling. No history of DVT or PE. No family history of premature cardiac . Patient follows with Dr. Tang. No other alleviating, precipitating or modifying factors - Related Data Home Medications Medication Instructions Recorded Confirmed Albuterol Sulfate [Albuterol 2 puff PO RT-Q4H PRN 12/04/20 02/15/21 Sulfate Hfa] Diltiazem HCl [Diltiazem HCl 24Hr 180 mg PO DAILY 12/04/20 02/15/21 ER] Previous Rx's Medication Instructions Recorded predniSONE [Deltasone] 20 mg PO BID #10 tab 02/15/21 Allergies Allergy/AdvReac Type Severity Reaction Status Date / Time ibuprofen [From Motrin] Allergy Dyspnea Verified 02/15/21 10:59 Review of Systems ROS Statement: Those systems with pertinent positive or pertinent negative responses have been documented in the HPI. ROS Other: All systems not noted in ROS Statement are negative. EKG Findings - EKG Comments: EKG Findings:: EKG demonstrates an electronic atrial pacemaker rhythm with a rate of 84. Pacemaker captures appropriately. [place] interval 132. QRS 96. QTC rate of 385. No acute ST segment elevations or depressions Past Medical History Past Medical History: Asthma, Chest Pain / Angina, GERD/Reflux, Musculoskeletal Disorder, Seizure Disorder, Syncope Additional Past Medical History / Comment(s): CMP. Migraine headache, Pacemaker 06/13/2014. SYNCOPAL EPISODES ONGOING. LOW BLOOD PRESSURE. VERTIGO R/T DIZZYNESS. UPON STANDING LT ARM & LEG GO NUMB. EEGs Showed Seizure-like Activity, Diagnosed w/ Seizures but Never physically had one. HX RUPTURED DISCS IN BACK, HAD PAIN INJ., unable to stand for longer than 12-15 minutes, History of Any Multi-Drug Resistant Organisms: None Reported Past Surgical History: Adenoidectomy, Heart Catheterization, Hernia Repair, Pacemaker, Tonsillectomy Additional Past Surgical History / Comment(s): TILT TABLE. EP STUDY. STATES MULT HERNIA REPAIRS. PACEMAKER [employer] 05/2014, Past Anesthesia/Blood Transfusion Reactions: Motion Sickness Type of Cardiac Device: Permanent Pacemaker Device Placement Date:: 2014 Past Psychological History: Anxiety, Depression Smoking Status: Never smoker Past Alcohol Use History: None Reported Past Drug Use History: None Reported - Past Family History Father Family Medical History: Chest Pain / Angina, Coronary Artery Disease (CAD) Brother(s) Family Medical History: No Reported History Sister(s) Family Medical History: No Reported History Daughter(s) Family Medical History: No Reported History Mother Family Medical History: Cancer Additional Family Medical History / Comment(s): BREAST General Exam Limitations: no limitations General appearance: alert, in no apparent distress Head exam: Present: atraumatic, normocephalic, normal inspection Eye exam: Present: normal appearance, PERRL, EOMI. Absent: scleral icterus, conjunctival injection, periorbital swelling ENT exam: Present: normal exam, mucous membranes moist Neck exam: Present: normal inspection. Absent: tenderness, meningismus, lymphadenopathy Respiratory exam: Present: normal lung sounds bilaterally. Absent: respiratory distress, wheezes, rales, rhonchi, stridor Cardiovascular Exam: Present: regular rate, normal rhythm, normal heart sounds. Absent: systolic murmur, diastolic murmur, rubs, gallop, clicks GI/Abdominal exam: Present: soft, normal bowel sounds. Absent: distended, tenderness, guarding, rebound, rigid Extremities exam: Present: normal inspection, full ROM, normal capillary refill. Absent: tenderness, pedal edema, joint swelling, calf tenderness Back exam: Present: normal inspection Neurological exam: Present: alert, oriented X3, CN II-XII intact Psychiatric exam: Present: normal affect, normal mood Skin exam: Present: warm, dry, intact, normal color. Absent: rash Course Vital Signs 02/15/21 02/15/21 02/15/21 10:36 11:26 11:39 Temperature 97.8 F Pulse Rate 90 84 Pulse Rate [ 89 Sitting Strapper] Respiratory 18 18 Rate Blood Pressure 121/83 120/80 O2 Sat by Pulse 98 98 Oximetry 02/15/21 13:42 Temperature Pulse Rate 80 Pulse Rate [ Sitting Strapper] Respiratory 18 Rate Blood Pressure 121/83 O2 Sat by Pulse 98 Oximetry Chest Pain MDM - MDM Upon arrival patient is placed in room 16. A thorough history and physical symptoms performed. IV is established laboratory studies are conducted. Chest x-rays. 12-lead EKG is performed and demonstrates pacemaker captures appropriately. Laboratory studies are reviewed and are all within normal limits. Covid negative. Chest x-ray demonstrates no acute cardiac process. I did discuss the diagnosis, differential treatment options. Patient reports he does have an inhaler at home. Instructed to use this medication every 4 hours for cough. Patient also given 60 mg of prednisone the emergency department by 20 mg daily. He is to follow-up with his primary care doctor to 4 days for reevaluation. Return to emergency room for any worsening symptoms. Patient was discharged home in stable condition Disposition Clinical Impression: Chest pain, Cough, Pleurisy, Bronchospasm with bronchitis, acute Disposition: HOME SELF-CARE Condition: Stable Instructions (If sedation given, give patient instructions): Chest Pain (ED), Upper Respiratory Infection (ED) Additional Instructions: Take the steroids as directed. Use your inhaler every 4 hours. Return to the emergency room for any new or worsening symptoms Prescriptions: predniSONE [Deltasone] 20 mg PO BID #10 tab Is patient prescribed a controlled substance at d/c from ED?: No Referrals: Joaquim Grossman MD [Primary Care Provider] - 1-2 days Time of Disposition: 13:30
[2021-02-15] MEDS ORDERED: predniSONE 20 MG TAB PO STA (13:25)
[2021-02-15 13:47] VITALS: BP 121/83; PULSE 80
== END 2021-02-15 13:42 | disposition home or self-care (01) ==
LOC: EC 10:30
DX: J20.9 Acute bronchitis, unspecified (principal); R11.0 Nausea; J45.909 Unspecified asthma, uncomplicated; Z20.822 Contact with and (suspected) exposure to COVID-19; Z88.6 Allergy status to analgesic agent; Z95.0 Presence of cardiac pacemaker
CPT/HCPCS: 36415; 93005; 85379; 83880; 80053; 83735; 84484; 85025; 85610; 85730; 87635; 71046; 99285; J7512

== ENCOUNTER → 2021-10-29 | Outpatient (CLI) | payer OTHER ==
--- NOTE | 2021-10-29 11:56 | XR ---
EXAMINATION TYPE: XR chest 2V DATE OF EXAM: 10/29/2021 COMPARISON: Chest x-ray February 15, 2021 HISTORY: History of asthma with shortness of breath TECHNIQUE: Frontal and lateral views of the chest are obtained. FINDINGS: There is no suspicious new focal air space opacity, pleural effusion, or pneumothorax seen . The cardiac silhouette size remains within normal limits. Dual-lead pacemaker redemonstrated. Th e osseous structures are intact. IMPRESSION: No acute process. No significant change from prior.
== END | disposition home or self-care (01) ==
LOC: RADXRMAIN 11:29
PROVIDERS: ATTEND Internal Medicine
DX: R06.02 Shortness of breath (principal)
CPT/HCPCS: 71046

== ENCOUNTER 2022-01-15 20:27 | Emergency (ER) | payer OTHER ==
[2022-01-15 20:50] VITALS: RESP 18; TEMP 98
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
[2022-01-15 22:23] LABS: Basophils # (A) 0.1 k/uL (0-0.2); Basophils % (A) 1 %; Eosinophils # (A) 0.1 k/uL (0-0.7); Eosinophils % (A) 1 %; HCT 42.7 % (39.0-53.0); HGB 14.3 gm/dL (13.0-17.5); Lymphocytes # (A) 1.9 k/uL (1.0-4.8); Lymphocytes % (A) 29 %; MCH 29.8 pg (25.0-35.0); MCHC 33.5 g/dL (31.0-37.0); MCV 88.9 fL (80.0-100.0); Mean Platelet Volume 7.5; Monocytes # (A) 0.4 k/uL (0-1.0); Monocytes % (A) 6 %; Neutrophils % (A) 61 %; Platelet Count 216 k/uL (150-450); RBC 4.81 m/uL (4.30-5.90); RDW 11.6 % (11.5-15.5); WBC 6.5 k/uL (3.8-10.6)
[2022-01-15 22:32] LABS: ALT 12 U/L (4-49); AST 18 U/L (17-59); African American GFR (CKD) >90 (>60 ml/min/1.73 sqM); Albumin 4.2 g/dL (3.5-5.0); Alkaline Phosphatase 39 U/L (38-126); Anion Gap 9 mmol/L; Blood Urea Nitrogen 17 mg/dL (9-20); Calcium 9.1 mg/dL (8.4-10.2); Carbon Dioxide 28 mmol/L (22-30); Chloride 101 mmol/L (98-107); Glucose 93 mg/dL (74-99); Non-African American GFR(CKD) >90 (>60 ml/min/1.73 sqM); Potassium 3.9 mmol/L (3.5-5.1); Sodium 138 mmol/L (137-145); Total Bilirubin 0.4 mg/dL (0.2-1.3); Total Protein 6.5 g/dL (6.3-8.2)
--- NOTE | 2022-01-15 23:24 | XR ---
EXAMINATION TYPE: XR chest 2V DATE OF EXAM: 01/15/2022 COMPARISON: NONE HISTORY: Trauma. Pain TECHNIQUE: 2 views FINDINGS: Heart and mediastinum are normal. Lungs are clear. Diaphragm is normal. There is left axill wallace pacemaker. No pleural effusion. Bony thorax is intact IMPRESSION: No active cardiopulmonary disease. No change.
[2022-01-15] MEDS ORDERED: ACETAMINOPHEN TAB 325 MG TAB PO STA (23:44)
[2022-01-15 23:52] LABS: Appearance,Urine Clear (Clear); Bilirubin,Urine Negative (Negative); Blood,Urine Negative (Negative); Color,Urine Yellow; Glucose,Urine (UA) Negative (Negative); Ketones,Urine Negative (Negative); Leukocyte Esterase,Urine Negative (Negative); Nitrite,Urine Negative (Negative); PH, Urine 6.5 (5.0-8.0); Protein,Urine Negative (Negative); Specific Gravity,Urine 1.023 (1.001-1.035)
[2022-01-15 23:54] VITALS: BP 123/91; PULSE 65
== END 2022-01-15 23:54 | disposition home or self-care (01) ==
LOC: EC 20:27
DX: S29.9XXA Unspecified injury of thorax, initial encounter (principal); J45.909 Unspecified asthma, uncomplicated; Z88.6 Allergy status to analgesic agent; V89.2XXA Person injured in unspecified motor-vehicle accident, traffic, initial encounter
CPT/HCPCS: 36415; 71046; 80053; 81003; 84484; 85025; 93005

== ENCOUNTER 2022-05-05 17:49 | Emergency (ER) | payer OTHER ==
[2022-05-05 18:32] VITALS: TEMP 98
[2022-05-05] MEDS ORDERED: ONDANSETRON ODT 4 MG TAB PO STA (20:41)
[2022-05-05 20:58] VITALS: RESP 18
--- NOTE | 2022-05-05 21:21 | XR ---
EXAMINATION TYPE: XR chest 2V DATE OF EXAM: 05/05/2022 COMPARISON: 01/15/2022 HISTORY: Cough TECHNIQUE: 2 views FINDINGS: Heart is normal. Lungs are clear. Diaphragm is normal. Bony thorax is intact. There is left axillary pacemaker. IMPRESSION: No active cardiopulmonary disease. Normal heart. No change compared to old exam.
--- NOTE | 2022-05-05 21:34 | ED ---
General Adult HPI - General Chief complaint: Upper Respiratory Infection Stated complaint: URI Time Seen by Provider: 05/05/22 20:29 Source: patient Mode of arrival: ambulatory Limitations: no limitations - History of Present Illness Initial comments: Patient is a 31-year-old male who presents to the emergency department with chief complaint of cough. Reports dry cough and nausea for the past few days. Patient reports vomiting each morning. Also has a headache. Take Tylenol prior to arrival. He denies fever, chills, abdominal pain, diarrhea, flank pain, blood in urine. Denies chest pain and shortness of breath. Patient presents with his baby who also has a cough. Patient does have history of asthma. States he has been using his albuterol nebulizer and inhaler daily. Patient also reports taking prednisone daily due to pacemaker - Related Data Home Medications Medication Instructions Recorded Confirmed Albuterol Sulfate [Albuterol 2 puff PO RT-Q4H PRN 12/04/20 02/15/21 Sulfate Hfa] dilTIAZem HCL [Diltiazem HCl 24Hr 180 mg PO DAILY 12/04/20 02/15/21 ER] Previous Rx's Medication Instructions Recorded predniSONE [Deltasone] 20 mg PO BID #10 tab 02/15/21 Ondansetron Odt [Zofran Odt] 4 mg PO Q8HR PRN #12 tab 05/05/22 Allergies Allergy/AdvReac Type Severity Reaction Status Date / Time ibuprofen [From Motrin] Allergy Dyspnea Verified 05/05/22 18:32 Review of Systems ROS Statement: Those systems with pertinent positive or pertinent negative responses have been documented in the HPI. ROS Other: All systems not noted in ROS Statement are negative. Past Medical History Past Medical History: Asthma, Chest Pain / Angina, GERD/Reflux, Musculoskeletal Disorder, Seizure Disorder, Syncope Additional Past Medical History / Comment(s): CMP. Migraine headache, Pacemaker 06/13/2014. SYNCOPAL EPISODES ONGOING. LOW BLOOD PRESSURE. VERTIGO R/T DIZZYNESS. UPON STANDING LT ARM & LEG GO NUMB. EEGs Showed Seizure-like Activity, Diagnosed w/ Seizures but Never physically had one. HX RUPTURED DISCS IN BACK, HAD PAIN INJ., unable to stand for longer than 12-15 minutes, History of Any Multi-Drug Resistant Organisms: None Reported Past Surgical History: Adenoidectomy, Heart Catheterization, Hernia Repair, Pacemaker, Tonsillectomy Additional Past Surgical History / Comment(s): TILT TABLE. EP STUDY. STATES MULT HERNIA REPAIRS. PACEMAKER [employer] 05/2014, Past Anesthesia/Blood Transfusion Reactions: Motion Sickness Type of Cardiac Device: Permanent Pacemaker Device Placement Date:: 2014 Past Psychological History: Anxiety, Depression Smoking Status: Never smoker Past Alcohol Use History: None Reported Past Drug Use History: None Reported - Past Family History Father Family Medical History: Chest Pain / Angina, Coronary Artery Disease (CAD) Brother(s) Family Medical History: No Reported History Sister(s) Family Medical History: No Reported History Daughter(s) Family Medical History: No Reported History Mother Family Medical History: Cancer Additional Family Medical History / Comment(s): BREAST General Exam Limitations: no limitations Head exam: Present: atraumatic, normocephalic, normal inspection Respiratory exam: Present: normal lung sounds bilaterally. Absent: respiratory distress, wheezes, rales, rhonchi, stridor Cardiovascular Exam: Present: regular rate, normal rhythm, normal heart sounds. Absent: systolic murmur, diastolic murmur, rubs, gallop, clicks Neurological exam: Present: alert, oriented X3, CN II-XII intact Psychiatric exam: Present: normal affect, normal mood Skin exam: Present: warm, dry, intact, normal color. Absent: rash Course Vital Signs 05/05/22 05/05/22 05/05/22 18:30 20:56 22:36 Temperature 98 F Pulse Rate 86 90 Respiratory 16 18 18 Rate Blood Pressure 123/78 120/83 O2 Sat by Pulse 98 97 Oximetry Medical Decision Making - Medical Decision Making This is a 31-year-old presenting with cough. Afebrile. No abnormal lung sounds. Patient demanding chest x-ray. This was obtained and interpreted by me which is negative for acute process. COVID-19, RSV, and influenza are not detected. After fluid bolus patient feeling improved. He will be discharged home with Zofran for nausea. Dr. Goss is my attending. - Lab Data Lab Results 05/05/22 Range/Units 18:34 Influenza Type A (PCR) Not Detected (Not Detectd) Influenza Type B (PCR) Not Detected (Not Detectd) RSV (PCR) Not Detected (Not Detectd) SARS-CoV-2 (PCR) Not Detected (Not Detectd) Disposition Clinical Impression: URI (upper respiratory infection), Cough Disposition: HOME SELF-CARE Condition: Good Instructions (If sedation given, give patient instructions): Upper Respiratory Infection (ED) Additional Instructions: Take medication as directed. Follow-up with primary care provider in one to 2 days. Return to the emergency department experience new, concerning, or worsening symptoms. Prescriptions: Ondansetron Odt [Zofran Odt] 4 mg PO Q8HR PRN #12 tab PRN Reason: Nausea Is patient prescribed a controlled substance at d/c from ED?: No Referrals: Joaquim Grossman MD [Primary Care Provider] - 1-2 days Time of Disposition: 21:34
[2022-05-05] MEDS ORDERED: SODIUM CHLORIDE 0.9% 1,000 ML IV STA (21:45)
[2022-05-05 22:37] VITALS: BP 120/83; PULSE 90
== END 2022-05-05 23:31 | disposition home or self-care (01) ==
LOC: EC 17:49
DX: J06.9 Acute upper respiratory infection, unspecified (principal); J45.909 Unspecified asthma, uncomplicated; F41.9 Anxiety disorder, unspecified; F32.A Depression, unspecified; Z79.899 Other long term (current) drug therapy; Z88.6 Allergy status to analgesic agent; Z20.822 Contact with and (suspected) exposure to COVID-19
CPT/HCPCS: 71046; 87636; 96360; 99283

== ENCOUNTER 2022-09-30 20:14 | Emergency (ER) | payer OTHER ==
[2022-09-30 20:40] VITALS: TEMP 97.5
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
[2022-09-30 21:27] LABS: Basophils % (A) 0 %; Eosinophils # (A) 0.1 k/uL (0-0.7); Eosinophils % (A) 1 %; HCT 44.3 % (39.0-53.0); HGB 14.9 gm/dL (13.0-17.5); Lymphocytes # (A) 1.6 k/uL (1.0-4.8); Lymphocytes % (A) 28 %; MCH 30.2 pg (25.0-35.0); MCHC 33.7 g/dL (31.0-37.0); MCV 89.8 fL (80.0-100.0); Mean Platelet Volume 7.6; Monocytes # (A) 0.4 k/uL (0-1.0); Monocytes % (A) 8 %; Neutrophils # (A) 3.5 k/uL (1.3-7.7); Neutrophils % (A) 61 %; Platelet Count 238 k/uL (150-450); RBC 4.93 m/uL (4.30-5.90); RDW 11.8 % (11.5-15.5); WBC 5.8 k/uL (3.8-10.6)
[2022-09-30 21:59] LABS: ALT 19 U/L (4-49); AST 23 U/L (17-59); African American GFR (CKD) >90 (>60 ml/min/1.73 sqM); Albumin 4.5 g/dL (3.5-5.0); Alkaline Phosphatase 40 U/L (38-126); Anion Gap 10 mmol/L; Blood Urea Nitrogen 14 mg/dL (9-20); Calcium 8.8 mg/dL (8.4-10.2); Carbon Dioxide 29 mmol/L (22-30); Chloride 100 mmol/L (98-107); Glucose 92 mg/dL (74-99); Magnesium 1.8 mg/dL (1.6-2.3); Non-African American GFR(CKD) >90 (>60 ml/min/1.73 sqM); Potassium 4.1 mmol/L (3.5-5.1); Sodium 139 mmol/L (137-145); Total Bilirubin 0.5 mg/dL (0.2-1.3); Total Protein 7.2 g/dL (6.3-8.2)
[2022-09-30 22:20] VITALS: PULSE 89
--- NOTE | 2022-09-30 23:34 | XR ---
EXAM: XR Chest, 2 Views CLINICAL HISTORY: ITS.REASON XR Reason: presyncope TECHNIQUE: Frontal and lateral views of the chest. COMPARISON: No relevant prior studies available. FINDINGS: Lungs: Unremarkable. No consolidation. Pleural space: Unremarkable. No pneumothorax. Heart: Unremarkable. No cardiomegaly. Mediastinum: Unremarkable. Bones/joints: Unremarkable. Tubes, lines and devices: Pacemaker leads. IMPRESSION: No acute findings in the chest.
[2022-10-01] VITALS: BP 143/55; RESP 18
== END 2022-10-01 | disposition home or self-care (01) ==
LOC: EC 20:14
DX: R55 Syncope and collapse (principal); J45.909 Unspecified asthma, uncomplicated; F41.9 Anxiety disorder, unspecified; F32.A Depression, unspecified; Z88.6 Allergy status to analgesic agent; Z79.899 Other long term (current) drug therapy
CPT/HCPCS: 36415; 71046; 80053; 83735; 84484; 85025; 93005; 99285

== ENCOUNTER 2023-03-01 17:36 | Emergency (ER) | payer OTHER ==
[2023-03-01 17:49] VITALS: TEMP 97.8
[2023-03-01] MEDS ORDERED: SODIUM CHLORIDE 0.9% 1,000 ML IV STA (19:10)
--- NOTE | 2023-03-01 19:37 | XR ---
EXAMINATION TYPE: XR chest 2V DATE OF EXAM: 03/01/2023 COMPARISON: Prior chest x-ray July 03, 2022 HISTORY: Chest pain. TECHNIQUE: Frontal and lateral views of the chest are obtained. FINDINGS: There is no focal air space opacity, pleural effusion, or pneumothorax seen. The cardiac silhouette size is stable and within normal limits. A dual-lead pacemaker is redemonstrated. The os seous structures are intact. IMPRESSION: No acute cardiopulmonary process. No significant change from prior.
--- NOTE | 2023-03-01 19:38 | XR ---
EXAMINATION TYPE: XR thoracic spine complete DATE OF EXAM: 03/01/2023 CLINICAL HISTORY: Fall with mid back pain. TECHNIQUE: Frontal, lateral, and swimmer's view of thoracic spine are obtained. COMPARISON: None. FINDINGS: Thoracic spine show satisfactory alignment without evidence of acute fracture or dislocatio n. Vertebral body heights and disc space heights are preserved. Visualized ribs are intact bilateral ly. There is partial visualization of overlying dual-lead pacemaker. IMPRESSION: No acute fracture or dislocation is seen in the thoracic spine.
--- NOTE | 2023-03-01 19:39 | XR ---
EXAMINATION TYPE: XR KUB DATE OF EXAM: 03/01/2023 7:33 PM CLINICAL HISTORY: Constipation TECHNIQUE: Two Upright KUB images of the abdomen are obtained. COMPARISON: Prior CT abdomen and pelvis 2013 FINDINGS: Scattered gas is seen in non-distended small bowel loops. Gas and fecal material is seen in non-distended colon. Mild colonic fecal prominence. There is no visceromegaly, pneumoperitoneum, or abnormal calcification appreciated. The lung bases are clear and the osseous structures are intact. IMPRESSION: Overall nonobstructive bowel gas pattern. Mild colonic fecal prominence or constipation noted.
--- NOTE | 2023-03-01 19:40 | ED ---
Chest Pain HPI - General Chief Complaint: Chest Pain Stated Complaint: CARMEN,pt has pacemaker Time Seen by Provider: 03/01/23 19:02 Source: patient Mode of arrival: ambulatory Limitations: no limitations - History of Present Illness Initial Comments: 32-year-old male presenting with multiple complaints. Patient is complaining of chest pain, pain is a pressure-like sensation in the center of the chest that started yesterday. States that it is constant, no alleviating or aggravating factors. He also admits to shortness of breath. He admits to nausea with one episode of vomiting earlier today. She states that yesterday he had a syncopal episode while standing, a bystander told him that it was only a brief loss of consciousness. Patient also states that he may be constipated as he has not had a bowel movement in the last 2-3 days. - Related Data Home Medications Medication Instructions Recorded Confirmed dilTIAZem HCL [Diltiazem HCl 24Hr 180 mg PO DAILY 12/04/20 09/30/22 ER] Acetaminophen [Tylenol] 650 mg PO Q6H PRN 09/30/22 09/30/22 Allergies Allergy/AdvReac Type Severity Reaction Status Date / Time ibuprofen [From Motrin] Allergy Dyspnea Verified 03/01/23 17:43 Review of Systems ROS Statement: Those systems with pertinent positive or pertinent negative responses have been documented in the HPI. ROS Other: All systems not noted in ROS Statement are negative. EKG Findings - EKG Comments: EKG Findings:: Electronic atrial pacemaker ventricular rate 69. NC interval 201. QRS 101. QT 334. QTC 353. Past Medical History Past Medical History: Asthma, Chest Pain / Angina, GERD/Reflux, Musculoskeletal Disorder, Seizure Disorder, Syncope Additional Past Medical History / Comment(s): CMP. Migraine headache, Pacemaker 06/13/2014. SYNCOPAL EPISODES ONGOING. LOW BLOOD PRESSURE. VERTIGO R/T DIZZYNESS. UPON STANDING LT ARM & LEG GO NUMB. EEGs Showed Seizure-like Activity, Diagnosed w/ Seizures but Never physically had one. HX RUPTURED DISCS IN BACK, HAD PAIN INJ., unable to stand for longer than 12-15 minutes, History of Any Multi-Drug Resistant Organisms: None Reported Past Surgical History: Adenoidectomy, Heart Catheterization, Hernia Repair, Pacemaker, Tonsillectomy Additional Past Surgical History / Comment(s): TILT TABLE. EP STUDY. STATES MULT HERNIA REPAIRS. PACEMAKER [employer] 05/2014, Past Anesthesia/Blood Transfusion Reactions: Motion Sickness Type of Cardiac Device: Permanent Pacemaker Device Placement Date:: 2014 Past Psychological History: Anxiety, Depression Smoking Status: Never smoker Past Alcohol Use History: None Reported Past Drug Use History: None Reported - Past Family History Father Family Medical History: Chest Pain / Angina, Coronary Artery Disease (CAD) Brother(s) Family Medical History: No Reported History Sister(s) Family Medical History: No Reported History Daughter(s) Family Medical History: No Reported History Mother Family Medical History: Cancer Additional Family Medical History / Comment(s): BREAST General Exam Limitations: no limitations General appearance: alert, in no apparent distress Head exam: Present: atraumatic, normocephalic, normal inspection Eye exam: Present: normal appearance, EOMI Neck exam: Present: normal inspection, full ROM Respiratory exam: Present: normal lung sounds bilaterally. Absent: respiratory distress, wheezes, rales, rhonchi, stridor Cardiovascular Exam: Present: regular rate, normal rhythm, normal heart sounds. Absent: systolic murmur, diastolic murmur, rubs, gallop, clicks Neurological exam: Present: alert, oriented X3, CN II-XII intact Psychiatric exam: Present: normal affect, normal mood Skin exam: Present: warm, dry, intact, normal color. 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 ] Respiratory 18 18 19 Rate Blood Pressure 130/86 123/93 125/90 Blood Pressure [Right Arm Supine] Blood Pressure [Right Arm] O2 Sat by Pulse 100 99 Oximetry 03/01/23 03/01/23 03/01/23 21:00 21:38 21:39 Temperature Pulse Rate 60 Pulse Rate [ 89 84 Warehouse Freight Handler ] Respiratory 6 L 18 18 Rate Blood Pressure 119/88 Blood Pressure 142/99 [Right Arm Supine] Blood Pressure 121/93 [Right Arm] O2 Sat by Pulse 100 Oximetry 03/01/23 22:00 Temperature Pulse Rate 69 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 sent in by a medical professional or institution ([facility], [facility], urgent care, hospital, or jail...) When possible be specific @ -No Did you speak to anyone other than the patient for history (EMS, parent, family, police, friend...)? What history was obtained from this source @ -No Did you review nursing and triage notes (agree or disagree)? Why? @ -I reviewed and agree with nursing and triage notes Were old charts reviewed (outside hosp., previous admission, EMS record, old EKG, old radiological studies, urgent care reports/EKG's, jail records)? Report findings @ -No old charts were reviewed Differential Diagnosis (chest pain, altered mental status, abdominal pain women, abdominal pain men, vaginal bleeding, weakness, fever, dyspnea, syncope, headache, dizziness, GI bleed, back pain, seizure, CVA, palpatations, mental health, musculoskeletal)? @ -MDM Differential Chest Pain: Stable Angina, Unstable Angina, STEMI, NSTEMI Aortic Dissection, Pneumothorax, Musculoskeletal, Esophageal Spasm GERD, Cholecystitis, Pancreatitis, Zosterâ€¦ This is not meant to be an all-inclusive list. EKG interpreted by me (3pts min.). @ -As above X-rays interpreted by me (1pt min.). @ -Chest x-ray shows no acute cardiopulmonary process. Thoracic spine x-ray shows no acute osseous process. KUB x-ray shows mild constipation with overall nonobstructive bowel gas pattern CT interpreted by me (1pt min.). @ -None done U/S interpreted by me (1pt. min.). @ -None done What testing was considered but not performed or refused? (CT, X-rays, U/S, labs)? Why? @ -None What meds were considered but not given or refused? Why? @ -None Did you discuss the management of the patient with other professionals (professionals i.e. [facility], [facility], lab, RT, psych nurse, licensed social worker, documentation billing clerk, teacher, tactical debriefer officer, clinical case manager)? Give summary @ -No Was smoking cessation discussed for >3mins.? @ -No Was critical care preformed (if so, how long)? @ -No Were there social determinants of health that impacted care today? How? (Homelessness, low income, unemployed, alcoholism, drug addiction, transportation, low edu. Level, literacy, decrease access to med. care, nursing home, rehab)? @ -No Was there de-escalation of care discussed even if they declined (Discuss DNR or withdrawal of care, Hospice)? DNR status @ -No What co-morbidities impacted this encounter? (DM, HTN, Smoking, COPD, CAD, Cancer, CVA, ARF, Chemo, Hep., AIDS, mental health diagnosis, sleep apnea, morbid obesity)? @ -None Was patient admitted / discharged? Hospital course, mention meds given and r oute, prescriptions, significant lab abnormalities, going to OR and other pertinent info. @ -32-year-old male presenting with multiple complaints. Patient admits to syncopal episode. At this time admits to some chest pressure and mild shortness of breath. Physical examination is conducted. Lab work is essentially unremarkable including negative troponin and d-dimer. KUB x-ray shows mild constipation, otherwise no acute process seen on KUB x-ray, thoracic spine x- ray, a chest x-ray. Positive orthostatic vitals when transferring from supine to sitting, stable vitals between sitting and standing. Likely secondary to dehydration patient is receiving IV fluids. He is instructed to follow-up with his PCP and plug stitcher. Follow-up with PCP. Report back to ER with any new or worsening symptoms. Discussed return parameters and answered all questions. Patient conveyed verbal understanding and agreed to the plan. I discussed this case in detail with my attending Dr. Zimmerman Undiagnosed new problem with uncertain prognosis? @ -No Drug Therapy requiring intensive monitoring for toxicity (Heparin, Nitro, Insulin, Cardizem)? @ -No Were any procedures done? @ -No Diagnosis/symptom? @ -Syncope Acute, or Chronic, or Acute on Chronic? @ -Acute Uncomplicated (without systemic symptoms) or Complicated (systemic symptoms)? @ -Uncomplicated Side effects of treatment? @ -No Exacerbation, Progression, or Severe Exacerbation? @ -No Disposition Clinical Impression: Syncope Disposition: HOME SELF-CARE Condition: Good Instructions (If sedation given, give patient instructions): Syncope (ED) Additional Instructions: Follow-up with PCP and cardiology. Report back to ER with any new or worsening symptoms. Is patient prescribed a controlled substance at d/c from ED?: No Referrals: Joaquim Grossman MD [Primary Care Provider] - 1-2 days Martin Jordan MD [STAFF PHYSICIAN] - 1-2 days Time of Disposition: 22:50
[2023-03-01 19:52] LABS: Basophils % (A) 0 %; Eosinophils % (A) 1 %; HCT 43.5 % (39.0-53.0); HGB 14.7 gm/dL (13.0-17.5); Lymphocytes # (A) 1.8 k/uL (1.0-4.8); Lymphocytes % (A) 28 %; MCH 30.3 pg (25.0-35.0); MCHC 33.8 g/dL (31.0-37.0); MCV 89.7 fL (80.0-100.0); Mean Platelet Volume 8.1; Monocytes # (A) 0.3 k/uL (0-1.0); Monocytes % (A) 5 %; Neutrophils # (A) 4.2 k/uL (1.3-7.7); Neutrophils % (A) 64 %; Platelet Count 205 k/uL (150-450); RBC 4.85 m/uL (4.30-5.90); WBC 6.5 k/uL (3.8-10.6)
[2023-03-01 20:27] LABS: ALT 12 U/L (4-49); AST 20 U/L (17-59); African American GFR (CKD) >90 (>60 ml/min/1.73 sqM); Albumin 4.4 g/dL (3.5-5.0); Alkaline Phosphatase 40 U/L (38-126); Amylase 46 U/L (30-110); Anion Gap 9 mmol/L; Blood Urea Nitrogen 19 mg/dL (9-20); Calcium 9.1 mg/dL (8.4-10.2); Carbon Dioxide 27 mmol/L (22-30); Chloride 103 mmol/L (98-107); Glucose 88 mg/dL (74-99); Lipase 53 U/L (23-300); Magnesium 1.7 mg/dL (1.6-2.3); Non-African American GFR(CKD) >90 (>60 ml/min/1.73 sqM); Potassium 4.6 mmol/L (3.5-5.1); Sodium 139 mmol/L (137-145); Total Bilirubin 0.6 mg/dL (0.2-1.3); Total Protein 7.1 g/dL (6.3-8.2)
[2023-03-01 20:51] LABS: Partial Thromboplastin Time 24.3 sec (22.0-30.0); Prothrombin Time 10.7 sec (9.0-12.0)
[2023-03-01 20:52] LABS: Appearance,Urine Clear (Clear); Bilirubin,Urine Negative (Negative); Blood,Urine Negative (Negative); Color,Urine Colorless; Glucose,Urine (UA) Negative (Negative); Ketones,Urine Negative (Negative); Leukocyte Esterase,Urine Negative (Negative); Nitrite,Urine Negative (Negative); PH, Urine 6.5 (5.0-8.0); Protein,Urine Negative (Negative); Specific Gravity,Urine 1.017 (1.001-1.035); Urobilinogen,Urine <2.0 mg/dL (<2.0)
[2023-03-01 21:46] VITALS: BP 121/93; RESP 18
[2023-03-01] MEDS ORDERED: SODIUM CHLORIDE 0.9% 1,000 ML IV ONE (22:17)
[2023-03-01] MEDS ORDERED: MECLIZINE 12.5 MG TAB PO STA (22:18)
[2023-03-01 22:19] VITALS: PULSE 69
== END 2023-03-01 23:02 | disposition home or self-care (01) ==
LOC: EC 17:36
DX: R55 Syncope and collapse (principal); J45.909 Unspecified asthma, uncomplicated; F41.9 Anxiety disorder, unspecified; F32.A Depression, unspecified; Z88.6 Allergy status to analgesic agent; Z79.899 Other long term (current) drug therapy
CPT/HCPCS: 36415; 71046; 72072; 74018; 80053; 81003; 82150; 83690; 83735; 84484; 85025; 85379; 85610; 85730; 96360; 96361; 99285

== ENCOUNTER 2023-03-27 18:36 | Emergency (ER) | payer OTHER ==
[2023-03-27] MEDS ORDERED: SODIUM CHLORIDE 0.9% 1,000 ML IV STA ×2 (19:40)
[2023-03-27] MEDS ORDERED: ACETAMINOPHEN IV (For NPO) 1,000 MG in EMPTY BAG 1 BAG IVPB STA (19:42)
--- NOTE | 2023-03-27 19:46 | ED ---
Weakness HPI - General Chief complaint: Nausea/Vomiting/Diarrhea Stated complaint: Weakness, Pace maker went off Time Seen by Provider: 03/27/23 19:27 Source: patient, RN notes reviewed, old records reviewed Mode of arrival: wheelchair Limitations: no limitations - History of Present Illness Initial comments: This is a 32-year-old male comes in for not feeling well weakness and lethargy sweating and fevers. Patient states he was too weak to get out of bed today his mom brings him to the emergency department. MD Complaint: generalized weakness, numbness, tingling, lack of energy -: days(s) Location: generalized Severity: moderate Severity scale (1-10): 4 Quality: numbness Consistency: constant Improves with: none Context: recent illness, history of similar Associated Symptoms: denies other symptoms - Related Data Home Medications Medication Instructions Recorded Confirmed dilTIAZem HCL [Diltiazem HCl 24Hr 180 mg PO DAILY 12/04/20 03/31/23 ER] Albuterol Nebulized [Ventolin 2.5 mg INHALATION RT-QID PRN 03/31/23 03/31/23 Nebulized] Albuterol Sulfate [Ventolin HFA] 1 puff INHALATION RT-Q6H PRN 03/31/23 03/31/23 PARoxetine HCL [Paxil] 10 mg PO DIRECTED 03/31/23 03/31/23 Previous Rx's Medication Instructions Recorded Docusate [Colace] 100 mg PO BID 7 Days #14 capsule 04/03/23 Mineral Oil [Fleet Mineral Oil] 133 ml RECTAL ONCE #133 ml 04/03/23 Allergies Allergy/AdvReac Type Severity Reaction Status Date / Time ibuprofen [From Motrin] Allergy Dyspnea Verified 04/03/23 18:06 Review of Systems ROS Statement: Those systems with pertinent positive or pertinent negative responses have been documented in the HPI. ROS Other: All systems not noted in ROS Statement are negative. Past Medical History Past Medical History: Asthma, Chest Pain / Angina, GERD/Reflux, Musculoskeletal Disorder, Seizure Disorder, Syncope Additional Past Medical History / Comment(s): CMP. Migraine headache, Pacemaker 06/13/2014. SYNCOPAL EPISODES ONGOING. LOW BLOOD PRESSURE. VERTIGO R/T DIZZYNESS. UPON STANDING LT ARM & LEG GO NUMB. EEGs Showed Seizure-like Activity, Diagnosed w/ Seizures but Never physically had one. HX RUPTURED DISCS IN BACK, HAD PAIN INJ., unable to stand for longer than 12-15 minutes, History of Any Multi-Drug Resistant Organisms: None Reported Past Surgical History: Adenoidectomy, Heart Catheterization, Hernia Repair, Pacemaker, Tonsillectomy Additional Past Surgical History / Comment(s): TILT TABLE. EP STUDY. STATES MULT HERNIA REPAIRS. PACEMAKER [employer] 05/2014, Past Anesthesia/Blood Transfusion Reactions: Motion Sickness Type of Cardiac Device: Permanent Pacemaker Device Placement Date:: 2014 Past Psychological History: Anxiety, Depression Smoking Status: Never smoker Past Alcohol Use History: None Reported Past Drug Use History: None Reported - Past Family History Father Family Medical History: Chest Pain / Angina, Coronary Artery Disease (CAD) Brother(s) Family Medical History: No Reported History Sister(s) Family Medical History: No Reported History Daughter(s) Family Medical History: No Reported History Mother Family Medical History: Cancer Additional Family Medical History / Comment(s): BREAST General Exam General appearance: alert, in no apparent distress Head exam: Present: atraumatic, normocephalic, normal inspection Eye exam: Present: normal appearance, PERRL, EOMI. Absent: scleral icterus, conjunctival injection, periorbital swelling ENT exam: Present: normal exam, mucous membranes moist Neck exam: Present: normal inspection. Absent: tenderness, meningismus, lymphadenopathy Respiratory exam: Present: normal lung sounds bilaterally. Absent: respiratory distress, wheezes, rales, rhonchi, stridor Cardiovascular Exam: Present: regular rate, normal rhythm, normal heart sounds. Absent: systolic murmur, diastolic murmur, rubs, gallop, clicks GI/Abdominal exam: Present: soft, normal bowel sounds. Absent: distended, tenderness, guarding, rebound, rigid Extremities exam: Present: normal inspection, full ROM, normal capillary refill. Absent: tenderness, pedal edema, joint swelling, calf tenderness Back exam: Present: normal inspection Neurological exam: Present: alert, oriented X3, CN II-XII intact Psychiatric exam: Present: normal affect, normal mood Skin exam: Present: warm, dry, intact, normal color. Absent: rash Course Vital Signs 03/27/23 03/27/23 19:11 22:00 Temperature 98.4 F 98.8 F Pulse Rate 82 80 Respiratory 18 16 Rate Blood Pressure 122/83 113/71 O2 Sat by Pulse 98 98 Oximetry - Reevaluation(s) Reevaluation #1: Records reviewed Reevaluation #2: Patient symptoms improved Reevaluation #3: Patient informed results and questions answered Reevaluation #4: 03/27/23 19:45 Was pt. sent in by a medical professional or institution ([facility], [facility], urgent care, hospital, or prison...) When possible be specific @ -no Did you speak to anyone other than the patient for history (EMS, parent, family, police, friend...)? What history was obtained from this source @ -no Did you review nursing and triage notes (agree or disagree)? Why? @ -agree Are old charts reviewed (outside hosp., previous admission, EMS record, old EKG, old radiological studies, urgent care reports/EKG's, prison records)? Report findings @ -yes Differential Diagnosis (chest pain, altered mental status, abdominal pain women, abdominal pain men, vaginal bleeding, weakness, fever, dyspnea, syncope, headache, dizziness, GI bleed, back pain, seizure, CVA, palpatations, mental health, musculoskeletal)? @ -prior EKG interpreted by me (3pts min.). @ -yes X-rays interpreted by me (1pt min.). @ -yes CT interpreted by me (1pt min.). @ -no U/S interpreted by me (1pt. min.). @ -no What testing was considered but not performed or refused? (CT, X-rays, U/S, labs)? Why? @ -none What meds were considered but not given or refused? Why? @ -none Did you discuss the management of the patient with other professionals (professionals i.e. [facility], [facility], lab, RT, psych nurse, social contact worker, avionics repair technician, teacher, assignment officer, bilingual patient support caseworker)? Give summary @ -no Was smoking cessation discussed for >3mins.? @ -no Was critical care preformed (if so, how long)? @ -no Were there social determinants of health that impacted care today? How? (Homelessness, low income, unemployed, alcoholism, drug addiction, transportation, low edu. Level, literacy, decrease access to med. care, [facility], rehab)? @ -none Was there de-escalation of care discussed even if they declined (Discuss DNR or withdrawal of care, Hospice)? DNR status @ -no What co-morbidities impacted this encounter? (DM, HTN, Smoking, COPD, CAD, Cancer, CVA, ARF, Chemo, Hep., AIDS, mental health diagnosis, sleep apnea, morbid obesity)? @ -none Was patient admitted / discharged? Hospital course, mention meds given and route, prescriptions, significant lab abnormalities, going to OR and other pertinent info. @ - 32 male to the emergency department for evaluation. Patient Dese for evaluation of weakness and bodyaches pains and fever positive for coronavirus. Patient was distress and can be discharged home Undiagnosed new problem with uncertain prognosis? @ -no Drug Therapy requiring intensive monitoring for toxicity (Heparin, Nitro, Insulin, Cardizem)? @ -no Were any procedures done? @ -no Diagnosis/symptom? @ -Coronavirus Acute, or Chronic, or Acute on Chronic? @ -Acute Uncomplicated (without systemic symptoms) or Complicated (systemic symptoms)? @ -Complicated Side effects of treatment? @ -no Exacerbation, Progression, or Severe Exacerbation? @ -exacerbation Poses a threat to life or bodily function? How? (Chest pain, [place], IL, pneumonia, PE, COPD, DKA, ARF, appy, cholecystitis, CVA, Diverticulitis, Homicidal, Suicidal, threat to staff... and all critical care pts) @ -yes significant infection from coronavirus Reevaluation #5: 03/27/23 19:45 Differential Weakness: Hypoglycemia, shock, sepsis, hyponatremia, anemia, infection, IL, ETOH, adverse medicine reaction, overdose, stroke, this is not meant to be an all-inclusive list. EKG Findings - EKG Comments: EKG Findings:: EKG is paced 74 ME 225 QRS 105 QTC 375 - EKG Results: EKG: interpreted by ERMD Medical Decision Making - Medical Decision Making 32 male to the emergency department for evaluation. Patient Dese for evaluation of weakness and bodyaches pains and fever positive for coronavirus. Patient was in no acute distress and can be discharged home - Lab Data Result diagrams: 03/27/23 20:05 03/27/23 20:05 Lab Results 03/27/23 03/27/23 03/27/23 Range/Units 19:43 20:05 20:05 WBC 4.5 (3.8-10.6) k/uL RBC 4.80 (4.30-5.90) m/uL Hgb 15.0 (13.0-17.5) gm/dL Hct 42.5 (39.0-53.0) % MCV 88.6 (80.0-100.0) fL MCH 31.2 (25.0-35.0) pg MCHC 35.2 (31.0-37.0) g/dL RDW 11.6 (11.5-15.5) % Plt Count 200 (150-450) k/uL MPV 7.8 Neutrophils % 59 % Lymphocytes % 25 % Monocytes % 12 % Eosinophils % 1 % Basophils % 0 % Neutrophils # 2.7 (1.3-7.7) k/uL Lymphocytes # 1.1 (1.0-4.8) k/uL Monocytes # 0.6 (0-1.0) k/uL Eosinophils # 0.0 (0-0.7) k/uL Basophils # 0.0 (0-0.2) k/uL PT 10.5 (10.0-12.5) sec INR 0.9 (<1.2) APTT 25.3 (22.0-30.0) sec Sodium (137-145) mmol/L Potassium (3.5-5.1) mmol/L Chloride (98-107) mmol/L Carbon Dioxide (22-30) mmol/L Anion Gap mmol/L BUN (9-20) mg/dL Creatinine (0.66-1.25) mg/dL Est GFR (CKD-EPI)AfAm (>60 ml/min/1.73 sqM) Est GFR (CKD-EPI)NonAf (>60 ml/min/1.73 sqM) Glucose (74-99) mg/dL Plasma Lactic Acid Severino (0.7-2.0) mmol/L Calcium (8.4-10.2) mg/dL Phosphorus (2.5-4.5) mg/dL Magnesium (1.6-2.3) mg/dL Total Bilirubin (0.2-1.3) mg/dL AST (17-59) U/L ALT (4-49) U/L Alkaline Phosphatase (38-126) U/L Troponin I (0.000-0.034) ng/mL NT-Pro-B Natriuret Pep pg/mL Total Protein (6.3-8.2) g/dL Albumin (3.5-5.0) g/dL TSH (0.465-4.680) mIU/L Influenza Type A (PCR) Not Detected (Not Detectd) Influenza Type B (PCR) Not Detected (Not Detectd) RSV (PCR) Not Detected (Not Detectd) SARS-CoV-2 (PCR) Detected A (Not Detectd) 03/27/23 03/27/23 03/27/23 Range/Units 20:05 20:05 20:05 WBC (3.8-10.6) k/uL RBC (4.30-5.90) m/uL Hgb (13.0-17.5) gm/dL Hct (39.0-53.0) % MCV (80.0-100.0) fL MCH (25.0-35.0) pg MCHC (31.0-37.0) g/dL RDW (11.5-15.5) % Plt Count (150-450) k/uL MPV Neutrophils % % Lymphocytes % % Monocytes % % Eosinophils % % Basophils % % Neutrophils # (1.3-7.7) k/uL Lymphocytes # (1.0-4.8) k/uL Monocytes # (0-1.0) k/uL Eosinophils # (0-0.7) k/uL Basophils # (0-0.2) k/uL PT (10.0-12.5) sec INR (<1.2) APTT (22.0-30.0) sec Sodium 137 (137-145) mmol/L Potassium 3.9 (3.5-5.1) mmol/L Chloride 99 (98-107) mmol/L Carbon Dioxide 28 (22-30) mmol/L Anion Gap 10 mmol/L BUN 13 (9-20) mg/dL Creatinine 0.83 (0.66-1.25) mg/dL Est GFR (CKD-EPI)AfAm >90 (>60 ml/min/1.73 sqM) Est GFR (CKD-EPI)NonAf >90 (>60 ml/min/1.73 sqM) Glucose 95 (74-99) mg/dL Plasma Lactic Acid Severino 0.9 (0.7-2.0) mmol/L Calcium 8.8 (8.4-10.2) mg/dL Phosphorus 3.5 (2.5-4.5) mg/dL Magnesium 1.9 (1.6-2.3) mg/dL Total Bilirubin 0.6 (0.2-1.3) mg/dL AST 18 (17-59) U/L ALT 11 (4-49) U/L Alkaline Phosphatase 49 (38-126) U/L Troponin I <0.012 (0.000-0.034) ng/mL NT-Pro-B Natriuret Pep <20 pg/mL Total Protein 6.7 (6.3-8.2) g/dL Albumin 4.1 (3.5-5.0) g/dL TSH 0.699 (0.465-4.680) mIU/L Influenza Type A (PCR) (Not Detectd) Influenza Type B (PCR) (Not Detectd) RSV (PCR) (Not Detectd) SARS-CoV-2 (PCR) (Not Detectd) - EKG Data -: EKG Interpreted by Me (EKG is sinus 74 ME 225 QRS 15 QTc 475) - Radiology Data Radiology results: report reviewed (Chest x-ray is negative for acute disease), image reviewed Disposition Clinical Impression: Coronavirus infection Disposition: HOME SELF-CARE Condition: Good Instructions (If sedation given, give patient instructions): Coronavirus Disease 2019 (COVID-19) Is patient prescribed a controlled substance at d/c from ED?: No Referrals: Woody Shields [Primary Care Provider] - 1-2 days Time of Disposition: 21:00
[2023-03-27 20:29] LABS: Basophils % (A) 0 %; Eosinophils % (A) 1 %; HCT 42.5 % (39.0-53.0); Lymphocytes # (A) 1.1 k/uL (1.0-4.8); Lymphocytes % (A) 25 %; MCH 31.2 pg (25.0-35.0); MCHC 35.2 g/dL (31.0-37.0); MCV 88.6 fL (80.0-100.0); Mean Platelet Volume 7.8; Monocytes # (A) 0.6 k/uL (0-1.0); Monocytes % (A) 12 %; Neutrophils # (A) 2.7 k/uL (1.3-7.7); Neutrophils % (A) 59 %; Platelet Count 200 k/uL (150-450); RDW 11.6 % (11.5-15.5); WBC 4.5 k/uL (3.8-10.6)
--- NOTE | 2023-03-27 20:33 | XR ---
EXAMINATION TYPE: XR chest 1V portable DATE OF EXAM: 03/27/2023 COMPARISON: 03/01/2023 INDICATION: Weakness vomiting nausea TECHNIQUE: Single frontal view of the chest is obtained. FINDINGS: The heart size is normal. The pulmonary vasculature is normal. The lungs are clear. Pacemaker overlies left chest. IMPRESSION: 1. No acute pulmonary process.
[2023-03-27 20:49] LABS: INR 0.9 (<1.2); Partial Thromboplastin Time 25.3 sec (22.0-30.0); Prothrombin Time 10.5 sec (10.0-12.5)
[2023-03-27 20:50] LABS: ALT 11 U/L (4-49); AST 18 U/L (17-59); African American GFR (CKD) >90 (>60 ml/min/1.73 sqM); Albumin 4.1 g/dL (3.5-5.0); Alkaline Phosphatase 49 U/L (38-126); Anion Gap 10 mmol/L; Blood Urea Nitrogen 13 mg/dL (9-20); Calcium 8.8 mg/dL (8.4-10.2); Carbon Dioxide 28 mmol/L (22-30); Chloride 99 mmol/L (98-107); Glucose 95 mg/dL (74-99); Magnesium 1.9 mg/dL (1.6-2.3); Non-African American GFR(CKD) >90 (>60 ml/min/1.73 sqM); Phosphorus 3.5 mg/dL (2.5-4.5); Potassium 3.9 mmol/L (3.5-5.1); Sodium 137 mmol/L (137-145); Total Bilirubin 0.6 mg/dL (0.2-1.3); Total Protein 6.7 g/dL (6.3-8.2)
[2023-03-27 20:55] LABS: NT-Pro-B-Type Natriuretic Pept <20 pg/mL
[2023-03-27] MEDS ORDERED: DEXAMETHASONE SOD PHOSPHATE 10 MG/ML 1 ML VIAL IVP STA (20:57)
[2023-03-27 22:17] VITALS: BP 113/71; PULSE 80; RESP 16; TEMP 98.8
== END 2023-03-27 21:40 | disposition home or self-care (01) ==
LOC: EC 18:36
DX: U07.1 COVID-19 (principal); J45.909 Unspecified asthma, uncomplicated; Z86.59 Personal history of other mental and behavioral disorders; Z79.899 Other long term (current) drug therapy; Z88.6 Allergy status to analgesic agent; Z95.0 Presence of cardiac pacemaker
CPT/HCPCS: 36415; 93005; 83880; 80053; 83605; 83735; 84100; 84443; 84484; 85025; 85610; 85730; 87636; 71045; 99284; 96365; 96361; J0131

== ENCOUNTER 2023-03-31 10:02 | Emergency (ER) | payer OTHER ==
[2023-03-31 10:19] VITALS: RESP 18
[2023-03-31] MEDS ORDERED: SODIUM CHLORIDE 0.9% 1,000 ML IV STA (11:25)
[2023-03-31 12:00] LABS: Basophils % (A) 0 %; Eosinophils % (A) 1 %; HCT 43.8 % (39.0-53.0); HGB 15.3 gm/dL (13.0-17.5); Lymphocytes # (A) 1.6 k/uL (1.0-4.8); Lymphocytes % (A) 43 %; MCH 30.9 pg (25.0-35.0); MCHC 34.9 g/dL (31.0-37.0); MCV 88.5 fL (80.0-100.0); Mean Platelet Volume 8.1; Monocytes # (A) 0.3 k/uL (0-1.0); Monocytes % (A) 7 %; Neutrophils # (A) 1.7 k/uL (1.3-7.7); Neutrophils % (A) 46 %; Platelet Count 216 k/uL (150-450); RBC 4.95 m/uL (4.30-5.90); RDW 11.7 % (11.5-15.5); WBC 3.8 k/uL (3.8-10.6)
[2023-03-31 12:13] LABS: ALT 10 U/L (4-49); AST 17 U/L (17-59); African American GFR (CKD) >90 (>60 ml/min/1.73 sqM); Albumin 4.3 g/dL (3.5-5.0); Alkaline Phosphatase 48 U/L (38-126); Anion Gap 8 mmol/L; Blood Urea Nitrogen 19 mg/dL (9-20); Calcium 9.1 mg/dL (8.4-10.2); Carbon Dioxide 28 mmol/L (22-30); Chloride 105 mmol/L (98-107); Glucose 87 mg/dL (74-99); Magnesium 1.9 mg/dL (1.6-2.3); Non-African American GFR(CKD) >90 (>60 ml/min/1.73 sqM); Partial Thromboplastin Time 24.9 sec (22.0-30.0); Potassium 4.8 mmol/L (3.5-5.1); Prothrombin Time 11.1 sec (10.0-12.5); Sodium 141 mmol/L (137-145); Total Bilirubin 0.7 mg/dL (0.2-1.3); Total Protein 6.9 g/dL (6.3-8.2)
--- NOTE | 2023-03-31 12:18 | CT ---
EXAMINATION TYPE: CT brain wo con DATE OF EXAM: 03/31/2023 COMPARISON: None HISTORY: syncope CT DLP: 1147 mGycm. Automated Exposure Control for Dose Reduction was Utilized. TECHNIQUE: CT scan of the head is performed without contrast. FINDINGS: There is no acute intracranial hemorrhage, mass effect, or midline shift identified. The ventricles and sulci are within normal limits in size. The globes are intact and there are mild blanca nges of chronic sinusitis. Low-lying cerebellar tonsils at the level of foramen magnum. IMPRESSION: 1. No acute intracranial hemorrhage, mass effect, or midline shift is seen. 2. Low-lying cerebellar tonsils recommend follow-up MRI to assess for Chiari malformation.
--- NOTE | 2023-03-31 12:24 | XR ---
EXAMINATION TYPE: XR chest 2V DATE OF EXAM: 03/31/2023 12:16 PM CLINICAL INDICATION:Male, 32 years old with history of syncope; COMPARISON: Chest radiographs from 03/27/2023. TECHNIQUE: XR chest 2V Frontal and lateral views of the chest. FINDINGS: Lungs/Pleura: There is no evidence of pleural effusion, focal consolidation, or pneumothorax. Pulmonary vascularity: Unremarkable. Heart/mediastinum: Cardiomediastinal silhouette is unremarkable. Two lead cardiac conduction device o verlying the left hemithorax with lead tips projecting over the right ventricle and right atrium. Musculoskeletal: No acute osseous pathology. IMPRESSION: No acute cardiopulmonary disease/process.
--- NOTE | 2023-03-31 13:45 | ED ---
General Adult HPI - General Chief complaint: Syncope Stated complaint: syncope Time Seen by Provider: 03/31/23 10:32 Source: patient, RN notes reviewed, old records reviewed Mode of arrival: ambulatory Limitations: no limitations - History of Present Illness Initial comments: Patient is a 32-year-old male with past medical history remarkable for chest p ain, angina, asthma, seizure disorder, syncopal episodes of the pacemaker presents emergency department for near syncopal episode at his primary care's office. They sent him to the emergency department for further evaluation. Originally listed this patient was at Dr. Jordan's office however he was actually at his primary care. Patient is Covid positive. States he had a near-syncopal episode at the office, as he was standing in onset down and began feeling lightheaded like he was going to faint. Did not actually faint. Eyes any other acute complaint. Feels back to normal at this time. Presents for further evaluation. Denies chest pain, shortness breath, abdominal pain, nausea, vomiting. Denies any diarrhea. Denies dehydration. - Related Data Home Medications Medication Instructions Recorded Confirmed dilTIAZem HCL [Diltiazem HCl 24Hr 180 mg PO DAILY 12/04/20 03/31/23 ER] Albuterol Nebulized [Ventolin 2.5 mg INHALATION RT-QID PRN 03/31/23 03/31/23 Nebulized] Albuterol Sulfate [Ventolin HFA] 1 puff INHALATION RT-Q6H PRN 03/31/23 03/31/23 PARoxetine HCL [Paxil] 10 mg PO DIRECTED 03/31/23 03/31/23 Allergies Allergy/AdvReac Type Severity Reaction Status Date / Time ibuprofen [From Motrin] Allergy Dyspnea Verified 03/31/23 13:54 Review of Systems ROS Statement: Those systems with pertinent positive or pertinent negative responses have been documented in the HPI. Review of Systems: CONST: Denies fever EYES: Denies blurry vision ENT: Denies nasal congestion C/V: Denies Chest pain RESP: Denies shortness of breath GI: Denies abdominal pain : Denies dysuria SKIN: Denies rash. MSK: Denies joint pain. NEURO: Denies headache ROS Other: All systems not noted in ROS Statement are negative. Past Medical History Past Medical History: Asthma, Chest Pain / Angina, GERD/Reflux, Musculoskeletal Disorder, Seizure Disorder, Syncope Additional Past Medical History / Comment(s): CMP. Migraine headache, Pacemaker 06/13/2014. SYNCOPAL EPISODES ONGOING. LOW BLOOD PRESSURE. VERTIGO R/T DIZZYNESS. UPON STANDING LT ARM & LEG GO NUMB. EEGs Showed Seizure-like Activity, Diagnosed w/ Seizures but Never physically had one. HX RUPTURED DISCS IN BACK, HAD PAIN INJ., unable to stand for longer than 12-15 minutes, History of Any Multi-Drug Resistant Organisms: None Reported Past Surgical History: Adenoidectomy, Heart Catheterization, Hernia Repair, Pacemaker, Tonsillectomy Additional Past Surgical History / Comment(s): TILT TABLE. EP STUDY. STATES MULT HERNIA REPAIRS. PACEMAKER [employer] 05/2014, Past Anesthesia/Blood Transfusion Reactions: Motion Sickness Type of Cardiac Device: Permanent Pacemaker Device Placement Date:: 2014 Past Psychological History: Anxiety, Depression Smoking Status: Never smoker Past Alcohol Use History: None Reported Past Drug Use History: None Reported - Past Family History Father Family Medical History: Chest Pain / Angina, Coronary Artery Disease (CAD) Brother(s) Family Medical History: No Reported History Sister(s) Family Medical History: No Reported History Daughter(s) Family Medical History: No Reported History Mother Family Medical History: Cancer Additional Family Medical History / Comment(s): BREAST General Exam - General Exam Comments Initial Comments: General: Appears in no acute distress. HEAD: Normal with no signs of head trauma. EYES: PERRLA, EOMI, conjunctiva normal, no discharge. ENT: Hearing grossly intact, normal oropharynx. RESPIRATORY: Clear breath sounds bilaterally. No wheezes, rales, or rhonchi. C/V: Regular rate and rhythm. S1 and S2 auscultated, no edema, peripheral pulses 2+ and intact throughout ABD: Abd is soft, nontender, nondistended EXT: Normal range of motion, no obvious deformity SKIN: No rashes or lesions observed on exposed skin. NEURO: Alert and oriented x 4. Cranial nerves II-XII intact. No focal sensory or strength deficits. GCS of 15. NIH is 0. Limitations: no limitations Course Vital Signs 03/31/23 03/31/23 03/31/23 10:08 12:23 13:36 Temperature 98 F Pulse Rate 80 69 Pulse Rate [ 79 Sitting Pulse Oximetery] Pulse Rate [ 70 Standing Pulse Oximetery] Pulse Rate [ 80 Supine Pulse Oximetery] Respiratory 18 18 Rate Blood Pressure 130/85 113/84 Blood Pressure 118/88 [Right Radial Artery Sitting] Blood Pressure 119/82 [Right Radial Artery Standing ] Blood Pressure 113/83 [Right Radial Artery Supine] O2 Sat by Pulse 100 100 100 Oximetry Medical Decision Making - Medical Decision Making Was pt. sent in by a medical professional or institution (, PA, SOLDERING MACHINE FEEDER, urgent care, hospital, or penitentiary...) When possible be specific @ -No Did you speak to anyone other than the patient for history (EMS, parent, family, police, friend...)? What history was obtained from this source @ -No Did you review nursing and triage notes (agree or disagree)? Why? @ -I reviewed and agree with nursing and triage notes, except that the patient presents from his primary care's office not from cardiology's office. Were old charts reviewed (outside hosp., previous admission, EMS record, old EKG, old radiological studies, urgent care reports/EKG's, penitentiary records)? Report findings @ -Old charts reviewed Differential Diagnosis (chest pain, altered mental status, abdominal pain women, abdominal pain men, vaginal bleeding, weakness, fever, dyspnea, syncope, headache, dizziness, GI bleed, back pain, seizure, CVA, palpatations, mental health, musculoskeletal)? @ -Differential Syncope: Valvular disease, hypertrophic cardiomyopathy, pulmonary embolism, tamponade, tachycardia, bradycardia, AK, hypovolemia, hemorrhage, dissection, anemia, intracranial hemorrhage, seizure, hypoglycemia, carbon monoxide poisoning, this is not meant to be an all-inclusive list. EKG interpreted by me (3pts min.). @ -As above X-rays interpreted by me (1pt min.). @ -Chest x-ray shows no evidence of acute cardiopulmonary process. CT interpreted by me (1pt min.). @ -CT imaging reveals no obvious acute intracranial process. There are low lying cerebellar tonsils. Recommend follow-up with neurology. U/S interpreted by me (1pt. min.). @ -None done What testing was considered but not performed or refused? (CT, X-rays, U/S, labs)? Why? @ -None What meds were considered but not given or refused? Why? @ -None Did you discuss the management of the patient with other professionals (professionals i.e. , PA, SOLDERING MACHINE FEEDER, lab, RT, psych nurse, social staff worker, warehouseman, teacher, civilian jail officer, caser in)? Give summary @ -No Was smoking cessation discussed for >3mins.? @ -No Was critical care preformed (if so, how long)? @ -No Were there social determinants of health that impacted care today? How? (Homelessness, low income, unemployed, alcoholism, drug addiction, transportation, low edu. Level, literacy, decrease access to med. care, prison, rehab)? @ -No Was there de-escalation of care discussed even if they declined (Discuss DNR or withdrawal of care, Hospice)? DNR status @ -No What co-morbidities impacted this encounter? (DM, HTN, Smoking, COPD, CAD, Cancer, CVA, ARF, Chemo, Hep., AIDS, mental health diagnosis, sleep apnea, morbid obesity)? @ -None Was patient admitted / discharged? Hospital course, mention meds given and route, prescriptions, significant lab abnormalities, going to OR and other pertinent info. @ -Based on patient's presentation and physical exam, patient had a near sy ncopal episode. We will obtain cardio pulmonary workup. Has had these episodes previously. Currently asymptomatic. Patient was in agreement with this plan. Vital signs within except for limits. We did obtain a CT brain which was negative for any obvious acute intracranial process. There are low lying cerebellar tonsils which could represent a Chiari malformation. Chest x-ray shows no evidence of acute cardiopulmonary process. Remainder the patient's workup unremarkable including d-dimer that is within acceptable limits at undetectable troponin. Orthostatic vital signs negative. He did receive 1 L fluid bolus. Patient is feeling well and would like to go. We discussed his workup including CT findings. He will be discharged, this time with strict follow-up precautions. We'll follow up with cardiology as well as neurology. Patient in agreement this plan. I instructed the patient to follow up with their PCP in the next 1-3 days. I explained that the patient should return to the emergency department if they experience any worsening symptoms. Strict return precautions were discussed with the patient. The patient expressed understanding of these instructions. I answered all questions that the patient had. The patient was discharged home in good condition with their prescriptions and follow up information. Undiagnosed new problem with uncertain prognosis? @ -No Drug Therapy requiring intensive monitoring for toxicity (Heparin, Nitro, Insulin, Cardizem)? @ -No Were any procedures done? @ -No Diagnosis/symptom? @ -Near syncope Acute, or Chronic, or Acute on Chronic? @ -Acute Uncomplicated (without systemic symptoms) or Complicated (systemic symptoms)? @ -Complicated Side effects of treatment? @ -No Exacerbation, Progression, or Severe Exacerbation? @ -No Poses a threat to life or bodily function? How? (Chest pain, USA, AK, pneumonia, PE, COPD, DKA, ARF, appy, cholecystitis, CVA, Diverticulitis, Homicidal, Suicidal, threat to staff... and all critical care pts) @ -Unlikely - Lab Data Result diagrams: 03/31/23 11:48 03/31/23 11:48 Lab Results 03/31/23 03/31/23 03/31/23 Range/Units 11:48 11:48 11:48 WBC 3.8 (3.8-10.6) k/uL RBC 4.95 (4.30-5.90) m/uL Hgb 15.3 (13.0-17.5) gm/dL Hct 43.8 (39.0-53.0) % MCV 88.5 (80.0-100.0) fL MCH 30.9 (25.0-35.0) pg MCHC 34.9 (31.0-37.0) g/dL RDW 11.7 (11.5-15.5) % Plt Count 216 (150-450) k/uL MPV 8.1 Neutrophils % 46 % Lymphocytes % 43 % Monocytes % 7 % Eosinophils % 1 % Basophils % 0 % Neutrophils # 1.7 (1.3-7.7) k/uL Lymphocytes # 1.6 (1.0-4.8) k/uL Monocytes # 0.3 (0-1.0) k/uL Eosinophils # 0.0 (0-0.7) k/uL Basophils # 0.0 (0-0.2) k/uL PT 11.1 (10.0-12.5) sec INR 1.0 (<1.2) APTT 24.9 (22.0-30.0) sec D-Dimer 0.31 (<0.60) mg/L FEU Sodium 141 (137-145) mmol/L Potassium 4.8 (3.5-5.1) mmol/L Chloride 105 (98-107) mmol/L Carbon Dioxide 28 (22-30) mmol/L Anion Gap 8 mmol/L BUN 19 (9-20) mg/dL Creatinine 0.82 (0.66-1.25) mg/dL Est GFR (CKD-EPI)AfAm >90 (>60 ml/min/1.73 sqM) Est GFR (CKD-EPI)NonAf >90 (>60 ml/min/1.73 sqM) Glucose 87 (74-99) mg/dL Calcium 9.1 (8.4-10.2) mg/dL Magnesium 1.9 (1.6-2.3) mg/dL Total Bilirubin 0.7 (0.2-1.3) mg/dL AST 17 (17-59) U/L ALT 10 (4-49) U/L Alkaline Phosphatase 48 (38-126) U/L Troponin I (0.000-0.034) ng/mL Total Protein 6.9 (6.3-8.2) g/dL Albumin 4.3 (3.5-5.0) g/dL 03/31/23 Range/Units 11:48 WBC (3.8-10.6) k/uL RBC (4.30-5.90) m/uL Hgb (13.0-17.5) gm/dL Hct (39.0-53.0) % MCV (80.0-100.0) fL MCH (25.0-35.0) pg MCHC (31.0-37.0) g/dL RDW (11.5-15.5) % Plt Count (150-450) k/uL MPV Neutrophils % % Lymphocytes % % Monocytes % % Eosinophils % % Basophils % % Neutrophils # (1.3-7.7) k/uL Lymphocytes # (1.0-4.8) k/uL Monocytes # (0-1.0) k/uL Eosinophils # (0-0.7) k/uL Basophils # (0-0.2) k/uL PT (10.0-12.5) sec INR (<1.2) APTT (22.0-30.0) sec D-Dimer (<0.60) mg/L FEU Sodium (137-145) mmol/L Potassium (3.5-5.1) mmol/L Chloride (98-107) mmol/L Carbon Dioxide (22-30) mmol/L Anion Gap mmol/L BUN (9-20) mg/dL Creatinine (0.66-1.25) mg/dL Est GFR (CKD-EPI)AfAm (>60 ml/min/1.73 sqM) Est GFR (CKD-EPI)NonAf (>60 ml/min/1.73 sqM) Glucose (74-99) mg/dL Calcium (8.4-10.2) mg/dL Magnesium (1.6-2.3) mg/dL Total Bilirubin (0.2-1.3) mg/dL AST (17-59) U/L ALT (4-49) U/L Alkaline Phosphatase (38-126) U/L Troponin I <0.012 (0.000-0.034) ng/mL Total Protein (6.3-8.2) g/dL Albumin (3.5-5.0) g/dL - EKG Data -: EKG Interpreted by Me EKG Comments: 12-lead Electrocardiogram Interpretation Note EKG was reviewed and interpreted by myself. 12-lead ECG performed at 1021 is interpreted by me as revealing atrial paced rhythm at a rate of 59 beats per minute. [place] is normal. CT interval is 200 ms, QRS duration is 101 ms, QTc is 363 ms.. There were no ST or T wave abnormalities to suggest myocardial ischemia or injury. R wave progression across the precordium was satisfactory. By my interpretation this EKG is non-diagnostic for acute ischemia. Disposition Clinical Impression: Near syncope Narrative: possible chiari malformation findings on CT. Disposition: HOME SELF-CARE Condition: Good Additional Instructions: follow up with PCP and neurology for findings suggestive of possible chiari malformation on CT imaging of the brain. Is patient prescribed a controlled substance at d/c from ED?: No Referrals: Woody Shields [Primary Care Provider] - 1-2 days Martin Jordan MD [STAFF PHYSICIAN] - 1-2 days Time of Disposition: 13:35
[2023-03-31 13:49] VITALS: BP 113/83; PULSE 80
[2023-03-31 14:36] VITALS: TEMP 98.2
== END 2023-03-31 14:10 | disposition home or self-care (01) ==
LOC: EC 10:02
DX: R55 Syncope and collapse (principal); J45.909 Unspecified asthma, uncomplicated; F41.9 Anxiety disorder, unspecified; F32.A Depression, unspecified; Z79.899 Other long term (current) drug therapy; Z95.0 Presence of cardiac pacemaker; Z88.6 Allergy status to analgesic agent
CPT/HCPCS: 36415; 70450; 71046; 80053; 83735; 84484; 85025; 85379; 85610; 85730; 93005; 96360; 99285

== ENCOUNTER 2023-04-03 18:01 | Emergency (ER) | payer OTHER ==
[2023-04-03 18:11] VITALS: TEMP 98.3
[2023-04-03] MEDS ORDERED: SODIUM CHLORIDE 0.9% 1,000 ML IV STA (18:55)
[2023-04-03] MEDS ORDERED: ONDANSETRON 4 MG/2 ML VIAL IVP STA (18:55)
[2023-04-03] MEDS ORDERED: PANTOPRAZOLE 40 MG/10 ML VIAL IVP STA (18:55)
[2023-04-03] MEDS ORDERED: MORPHINE SULFATE 4 MG/ML SYRINGE IVP STA (18:57)
[2023-04-03 19:18] LABS: Appearance,Urine Clear (Clear); Bilirubin,Urine Negative (Negative); Blood,Urine Negative (Negative); Color,Urine Colorless; Glucose,Urine (UA) Negative (Negative); Ketones,Urine 1+ (Negative); Leukocyte Esterase,Urine Negative (Negative); Nitrite,Urine Negative (Negative); PH, Urine 6.5 (5.0-8.0); Protein,Urine Negative (Negative); Specific Gravity,Urine 1.011 (1.001-1.035); Urobilinogen,Urine <2.0 mg/dL (<2.0)
[2023-04-03 19:19] LABS: Basophils % (A) 0 %; Eosinophils # (A) 0.1 k/uL (0-0.7); Eosinophils % (A) 1 %; HCT 43.8 % (39.0-53.0); HGB 15.9 gm/dL (13.0-17.5); Lymphocytes # (A) 2.1 k/uL (1.0-4.8); Lymphocytes % (A) 33 %; MCH 31.3 pg (25.0-35.0); MCHC 36.2 g/dL (31.0-37.0); MCV 86.5 fL (80.0-100.0); Mean Platelet Volume 7.6; Monocytes # (A) 0.4 k/uL (0-1.0); Monocytes % (A) 7 %; Neutrophils # (A) 3.7 k/uL (1.3-7.7); Neutrophils % (A) 58 %; Platelet Count 284 k/uL (150-450); RBC 5.07 m/uL (4.30-5.90); RDW 11.4 % (11.5-15.5); WBC 6.4 k/uL (3.8-10.6)
[2023-04-03 19:26] LABS: Partial Thromboplastin Time 25.5 sec (22.0-30.0); Prothrombin Time 11.2 sec (10.0-12.5)
[2023-04-03 19:37] LABS: ALT 11 U/L (4-49); AST 21 U/L (17-59); African American GFR (CKD) >90 (>60 ml/min/1.73 sqM); Albumin 4.4 g/dL (3.5-5.0); Alkaline Phosphatase 48 U/L (38-126); Amylase 57 U/L (30-110); Anion Gap 9 mmol/L; Blood Urea Nitrogen 14 mg/dL (9-20); Carbon Dioxide 25 mmol/L (22-30); Chloride 102 mmol/L (98-107); Glucose 78 mg/dL (74-99); Lipase 67 U/L (23-300); Non-African American GFR(CKD) >90 (>60 ml/min/1.73 sqM); Potassium 4.1 mmol/L (3.5-5.1); Sodium 136 mmol/L (137-145); Total Bilirubin 0.6 mg/dL (0.2-1.3)
--- NOTE | 2023-04-03 19:44 | CT ---
EXAMINATION TYPE: CT abdomen pelvis w con CT DLP: 506.8 mGycm, Automated exposure control for dose reduction was used. DATE OF EXAM: 04/03/2023 7:32 PM COMPARISON: none CLINICAL INDICATION:Male, 32 years old with history of abdominal pain; ABDOMINAL PAIN, VOMITING AND C ONSTIPATION TECHNIQUE: Axial CT of the ;CT abdomen pelvis w con;Sagittal and coronal reformats were created on a separate workstation. Contrast used:100ML mL of Isovue 300 with IV Contrast, (none if empty) Oral contrast used: without Oral Contrast (none if empty) FINDINGS: LOWER CHEST: Cardiac conduction leads partially visualized. ABDOMEN LIVER: Low density in the right hepatic lobe likely representing a simple cyst. GALLBLADDER AND BILE DUCTS: Unremarkable. PANCREAS: Unremarkable. SPLEEN: Unremarkable. ADRENAL GLANDS: Unremarkable. KIDNEYS AND URETERS: No evidence of hydronephrosis or renal calculus. The ureters are unremarkable. PELVIS BLADDER: Unremarkable REPRODUCTIVE: Unremarkable. ABDOMEN & PELVIS STOMACH AND BOWEL: No evidence of bowel obstruction. Moderate to large stool burden throughout the co kay. The appendix is normal. PERITONEUM/RETROPERITONEUM: No evidence of pneumoperitoneum or free fluid. VASCULATURE: No evidence of aortic aneurysm. MUSCULOSKELETAL: No acute osseous abnormalities LYMPH NODES: No gross evidence for lymphadenopathy. SOFT TISSUE/ABDOMINAL WALL: Unremarkable IMPRESSION: 1. No evidence for acute abdominal process. 2. Moderate stool burden throughout the colon. No evidence for bowel obstruction.
[2023-04-03 19:57] VITALS: BP 121/88; PULSE 75; RESP 16
--- NOTE | 2023-04-03 20:13 | ED ---
General Adult HPI - General Chief complaint: Abdominal Pain Stated complaint: Vomiting Time Seen by Provider: 04/03/23 18:23 Source: patient, RN notes reviewed, old records reviewed Mode of arrival: ambulatory Limitations: no limitations - History of Present Illness Initial comments: Patient is a 32-year-old male with past medical history remarkable for bradycardia with pacemaker, seizure disorder, who presents emergency Department complaining of abdominal pain. Recent Covid infection as well. States he threw up dark emesis and is concerned that he may have a bowel obstruction. No significant abdominal surgeries in the past. States he still passing gas but no significant bowel movements. Thinks he is constipated. Endorses nausea currently but no recent emesis. Denies chest pain or shortness of breath. No urinary complaints. No other acute complaints at this time. Was going to take, at home but due to his history of bradycardia and having a pacemaker he did want to be evaluated here in the department.Patient does endorse abdominal discomfort and states it is localized primarily to the left lower quadrant. - Related Data Home Medications Medication Instructions Recorded Confirmed dilTIAZem HCL [Diltiazem HCl 24Hr 180 mg PO DAILY 12/04/20 03/31/23 ER] Albuterol Nebulized [Ventolin 2.5 mg INHALATION RT-QID PRN 03/31/23 03/31/23 Nebulized] Albuterol Sulfate [Ventolin HFA] 1 puff INHALATION RT-Q6H PRN 03/31/23 03/31/23 PARoxetine HCL [Paxil] 10 mg PO DIRECTED 03/31/23 03/31/23 Previous Rx's Medication Instructions Recorded Docusate [Colace] 100 mg PO BID 7 Days #14 capsule 04/03/23 Mineral Oil [Fleet Mineral Oil] 133 ml RECTAL ONCE #133 ml 04/03/23 Allergies Allergy/AdvReac Type Severity Reaction Status Date / Time ibuprofen [From Motrin] Allergy Dyspnea Verified 04/03/23 18:06 Review of Systems ROS Statement: Those systems with pertinent positive or pertinent negative responses have been documented in the HPI. Review of Systems: CONST: Denies fever EYES: Denies blurry vision ENT: Denies nasal congestion C/V: Denies Chest pain RESP: Denies shortness of breath GI: Endorses abdominal pain : Denies dysuria SKIN: Denies rash. MSK: Denies joint pain. NEURO: Denies headache ROS Other: All systems not noted in ROS Statement are negative. Past Medical History Past Medical History: Asthma, Chest Pain / Angina, GERD/Reflux, Musculoskeletal Disorder, Seizure Disorder, Syncope Additional Past Medical History / Comment(s): CMP. Migraine headache, Pacemaker 06/13/2014. SYNCOPAL EPISODES ONGOING. LOW BLOOD PRESSURE. VERTIGO R/T DI ZZYNESS. UPON STANDING LT ARM & LEG GO NUMB. EEGs Showed Seizure-like Activity, Diagnosed w/ Seizures but Never physically had one. HX RUPTURED DISCS IN BACK, HAD PAIN INJ., unable to stand for longer than 12-15 minutes, History of Any Multi-Drug Resistant Organisms: None Reported Past Surgical History: Adenoidectomy, Heart Catheterization, Hernia Repair, Pacemaker, Tonsillectomy Additional Past Surgical History / Comment(s): TILT TABLE. EP STUDY. STATES MULT HERNIA REPAIRS. PACEMAKER [employer] 05/2014, Past Anesthesia/Blood Transfusion Reactions: Motion Sickness Type of Cardiac Device: Permanent Pacemaker Device Placement Date:: 2014 Past Psychological History: Anxiety, Depression Smoking Status: Never smoker Past Alcohol Use History: None Reported Past Drug Use History: None Reported - Past Family History Father Family Medical History: Chest Pain / Angina, Coronary Artery Disease (CAD) Brother(s) Family Medical History: No Reported History Sister(s) Family Medical History: No Reported History Daughter(s) Family Medical History: No Reported History Mother Family Medical History: Cancer Additional Family Medical History / Comment(s): BREAST General Exam - General Exam Comments Initial Comments: General: Appears in no acute distress. HEAD: Normal with no signs of head trauma. EYES: PERRLA, EOMI, conjunctiva normal, no discharge. ENT: Hearing grossly intact, normal oropharynx. RESPIRATORY: Clear breath sounds bilaterally. No wheezes, rales, or rhonchi. C/V: Regular rate and rhythm. S1 and S2 auscultated, peripheral pulses 2+ and intact throughout ABD: Abdomen is soft, nondistended. Mild tenderness to palpation in the lower quadrants. No guarding. No rebound tenderness. No peritoneal signs. EXT: Normal range of motion, no obvious deformity SKIN: No rashes or lesions observed on exposed skin. NEURO: Alert and oriented 4. Limitations: no limitations Course Vital Signs 04/03/23 04/03/23 18:04 19:51 Temperature 98.3 F Pulse Rate 80 75 Respiratory 20 16 Rate Blood Pressure 116/80 121/88 O2 Sat by Pulse 100 100 Oximetry Medical Decision Making - Medical Decision Making Was pt. sent in by a medical professional or institution (, PILY, JEWEL INSPECTOR, urgent care, hospital, or care home...) When possible be specific @ -No Did you speak to anyone other than the patient for history (EMS, parent, family, police, friend...)? What history was obtained from this source @ -No Did you review nursing and triage notes (agree or disagree)? Why? @ -I reviewed and agree with nursing and triage notes Were old charts reviewed (outside hosp., previous admission, EMS record, old EKG, old radiological studies, urgent care reports/EKG's, care home records)? Report findings @ -Old charts reviewed Differential Diagnosis (chest pain, altered mental status, abdominal pain women, abdominal pain men, vaginal bleeding, weakness, fever, dyspnea, syncope, headache, dizziness, GI bleed, back pain, seizure, CVA, palpatations, mental health, musculoskeletal)? @ -Differential Abdominal Pain Men: Appendicitis, cholecystitis, diverticulosis, ischemic bowel, pancreatitis, hepatitis, UTI, gastroenteritis, AAA, incarcerated hernia, bowel obstruction, constipation, inflammatory bowel, hepatitis, peptic ulcer disease, splenic infarction, perforated viscus, testicular torsion, this is not meant to be an all-inclusive list EKG interpreted by me (3pts min.). @ -None done X-rays interpreted by me (1pt min.). @ -None done CT interpreted by me (1pt min.). @ -CT abdomen and pelvis reveals no obvious acute intra-abdominal process, other than mild to moderate stool burden. No evidence of obstruction. U/S interpreted by me (1pt. min.). @ -None done What testing was considered but not performed or refused? (CT, X-rays, U/S, lab s)? Why? @ -None What meds were considered but not given or refused? Why? @ -None Did you discuss the management of the patient with other professionals (professionals i.e. PILY Gonzalez, JEWEL INSPECTOR, lab, RT, psych nurse, rn social work, stable helper, teacher, motorized squad commanding officer, immigration case worker)? Give summary @ -No Was smoking cessation discussed for >3mins.? @ -No Was critical care preformed (if so, how long)? @ -No Were there social determinants of health that impacted care today? How? (Homelessness, low income, unemployed, alcoholism, drug addiction, transportation, low edu. Level, literacy, decrease access to med. care, nursing home, rehab)? @ -No Was there de-escalation of care discussed even if they declined (Discuss DNR or withdrawal of care, Hospice)? DNR status @ -No What co-morbidities impacted this encounter? (DM, HTN, Smoking, COPD, CAD, Cancer, CVA, ARF, Chemo, Hep., AIDS, mental health diagnosis, sleep apnea, morbid obesity)? @ -None Was patient admitted / discharged? Hospital course, mention meds given and route, prescriptions, significant lab abnormalities, going to OR and other pertinent info. @ -Based on the patient's presentation and physical exam, patient presents with concern for small bowel obstruction. We will obtain abdominal laboratory studies as well as a CT abdomen and pelvis. Exam unremarkable. Vital signs are within acceptable limits. The patient and agree with this plan. He'll be given IV fluids, Protonix, Zofran, morphine. Patient's laboratory studies within acceptable limits. Patient's CT shows mild to moderate stool burden with no evidence of obstruction. I discussed results with the patient. He is feeling improved. He will be discharged home with stool softeners, enemas as well as ODT Zofran. Strict return precautions discussed. He was in agreement with this plan. He understands is resolved. I will provide the patient with a prescription for enema, docusate. I instructed the patient to follow up with their PCP in the next 1-3 days. I explained that the patient should return to the emergency department if they experience any worsening symptoms. Strict return precautions were discussed with the patient. The patient expressed understanding of these instructions. I answered all questions that the patient had. The patient was discharged home in fair condition with their prescriptions and follow up information. Undiagnosed new problem with uncertain prognosis? @ -No Drug Therapy requiring intensive monitoring for toxicity (Heparin, Nitro, Insulin, Cardizem)? @ -No Were any procedures done? @ -No Diagnosis/symptom? @ -Constipation, abdominal pain, nausea and vomiting Acute, or Chronic, or Acute on Chronic? @ -Acute Uncomplicated (without systemic symptoms) or Complicated (systemic symptoms)? @ -Uncomplicated Side effects of treatment? @ -No Exacerbation, Progression, or Severe Exacerbation? @ -No Poses a threat to life or bodily function? How? (Chest pain, [place], [place], pneumonia, PE, COPD, DKA, ARF, appy, cholecystitis, CVA, Diverticulitis, Homicidal, Suicidal, threat to staff... and all critical care pts) @ -No - Lab Data Result diagrams: 04/03/23 18:59 04/03/23 18:59 Lab Results 04/03/23 04/03/23 04/03/23 Range/Units 18:59 18:59 18:59 WBC 6.4 (3.8-10.6) k/uL RBC 5.07 (4.30-5.90) m/uL Hgb 15.9 (13.0-17.5) gm/dL Hct 43.8 (39.0-53.0) % MCV 86.5 (80.0-100.0) fL MCH 31.3 (25.0-35.0) pg MCHC 36.2 (31.0-37.0) g/dL RDW 11.4 L (11.5-15.5) % Plt Count 284 (150-450) k/uL MPV 7.6 Neutrophils % 58 % Lymphocytes % 33 % Monocytes % 7 % Eosinophils % 1 % Basophils % 0 % Neutrophils # 3.7 (1.3-7.7) k/uL Lymphocytes # 2.1 (1.0-4.8) k/uL Monocytes # 0.4 (0-1.0) k/uL Eosinophils # 0.1 (0-0.7) k/uL Basophils # 0.0 (0-0.2) k/uL PT 11.2 (10.0-12.5) sec INR 1.0 (<1.2) APTT 25.5 (22.0-30.0) sec Sodium (137-145) mmol/L Potassium (3.5-5.1) mmol/L Chloride (98-107) mmol/L Carbon Dioxide (22-30) mmol/L Anion Gap mmol/L BUN (9-20) mg/dL Creatinine (0.66-1.25) mg/dL Est GFR (CKD-EPI)AfAm (>60 ml/min/1.73 sqM) Est GFR (CKD-EPI)NonAf (>60 ml/min/1.73 sqM) Glucose (74-99) mg/dL Plasma Lactic Acid Severino (0.7-2.0) mmol/L Calcium (8.4-10.2) mg/dL Total Bilirubin (0.2-1.3) mg/dL AST (17-59) U/L ALT (4-49) U/L Alkaline Phosphatase (38-126) U/L Total Protein (6.3-8.2) g/dL Albumin (3.5-5.0) g/dL Amylase (30-110) U/L Lipase (23-300) U/L Urine Color Colorless Urine Appearance Clear (Clear) Urine pH 6.5 (5.0-8.0) Ur Specific [place] 1.011 (1.001-1.035) Urine Protein Negative (Negative) Urine Glucose (UA) Negative (Negative) Urine Ketones 1+ H (Negative) Urine Blood Negative (Negative) Urine Nitrite Negative (Negative) Urine Bilirubin Negative (Negative) Urine Urobilinogen <2.0 (<2.0) mg/dL Ur Leukocyte Esterase Negative (Negative) 04/03/23 04/03/23 Range/Units 18:59 18:59 WBC (3.8-10.6) k/uL RBC (4.30-5.90) m/uL Hgb (13.0-17.5) gm/dL Hct (39.0-53.0) % MCV (80.0-100.0) fL MCH (25.0-35.0) pg MCHC (31.0-37.0) g/dL RDW (11.5-15.5) % Plt Count (150-450) k/uL MPV Neutrophils % % Lymphocytes % % Monocytes % % Eosinophils % % Basophils % % Neutrophils # (1.3-7.7) k/uL Lymphocytes # (1.0-4.8) k/uL Monocytes # (0-1.0) k/uL Eosinophils # (0-0.7) k/uL Basophils # (0-0.2) k/uL PT (10.0-12.5) sec INR (<1.2) APTT (22.0-30.0) sec Sodium 136 L (137-145) mmol/L Potassium 4.1 (3.5-5.1) mmol/L Chloride 102 (98-107) mmol/L Carbon Dioxide 25 (22-30) mmol/L Anion Gap 9 mmol/L BUN 14 (9-20) mg/dL Creatinine 0.72 (0.66-1.25) mg/dL Est GFR (CKD-EPI)AfAm >90 (>60 ml/min/1.73 sqM) Est GFR (CKD-EPI)NonAf >90 (>60 ml/min/1.73 sqM) Glucose 78 (74-99) mg/dL Plasma Lactic Acid Severino 0.9 (0.7-2.0) mmol/L Calcium 9.0 (8.4-10.2) mg/dL Total Bilirubin 0.6 (0.2-1.3) mg/dL AST 21 (17-59) U/L ALT 11 (4-49) U/L Alkaline Phosphatase 48 (38-126) U/L Total Protein 7.0 (6.3-8.2) g/dL Albumin 4.4 (3.5-5.0) g/dL Amylase 57 (30-110) U/L Lipase 67 (23-300) U/L Urine Color Urine Appearance (Clear) Urine pH (5.0-8.0) Ur Specific [place] (1.001-1.035) Urine Protein (Negative) Urine Glucose (UA) (Negative) Urine Ketones (Negative) Urine Blood (Negative) Urine Nitrite (Negative) Urine Bilirubin (Negative) Urine Urobilinogen (<2.0) mg/dL Ur Leukocyte Esterase (Negative) Disposition Clinical Impression: Constipation, Abdominal pain, Nausea and vomiting Disposition: HOME SELF-CARE Condition: Fair Prescriptions: Docusate [Colace] 100 mg PO BID 7 Days #14 capsule Mineral Oil [Fleet Mineral Oil] 133 ml RECTAL ONCE #133 ml Is patient prescribed a controlled substance at d/c from ED?: No Referrals: Woody Shields [Primary Care Provider] - 1-2 days Time of Disposition: 19:58
[2023-04-03] MEDS ORDERED: ONDANSETRON 4 MG ODT STARTER PACK 2 TAB BTL PO STA (20:41)
== END 2023-04-03 21:04 | disposition home or self-care (01) ==
LOC: EC 18:01
DX: K59.00 Constipation, unspecified (principal); R11.2 Nausea with vomiting, unspecified; R10.32 Left lower quadrant pain; J45.909 Unspecified asthma, uncomplicated; F32.A Depression, unspecified; F41.9 Anxiety disorder, unspecified; Z79.899 Other long term (current) drug therapy; Z88.6 Allergy status to analgesic agent; Z86.16 Personal history of COVID-19
CPT/HCPCS: 36415; 80053; 82150; 83605; 83690; 85025; 85610; 85730; 81003; 74177; 99285; 96374; 96375 ×2; 96361; J2270; J2405; S0119; C9113; Q9967

== ENCOUNTER 2023-04-27 11:16 | Emergency (ER) | payer OTHER ==
[2023-04-27 11:37] VITALS: RESP 18; TEMP 98.5
--- NOTE | 2023-04-27 11:55 | ED ---
General Adult HPI - General Chief complaint: Syncope Stated complaint: syncope Time Seen by Provider: 04/27/23 11:41 Source: patient Mode of arrival: EMS Limitations: no limitations - History of Present Illness Initial comments: The patient is a 32-year-old gentleman with a history of pacemaker secondary to bradycardia, possible SVT, suspected Chiari Malformation, who presents to the ED after syncopal episode at home. Patient was at home with his mother's and had been lying down and when he stood up he passed out. He fell onto carpet. Patient denies hitting his head however woke up when his daughter tapped his shoulder. The patient denies any chest pain, shortness breath, hemoptysis, recent fevers or dark or tarry stools. He states he did have a small amount of topical salad this morning and has been drinking a lot of fluids. He has had similar syncopal episodes the past, which he states is why he had the pacemaker placed. Patient saw his tar kettle runner within the last month. He is supposed to be getting stress tests done, however, the tar kettle runner wanted to wait until after he sees the neurologist, to further evaluate for suspected Chiari malformation, prior to having these tests done. - Related Data Home Medications Medication Instructions Recorded Confirmed dilTIAZem HCL [Diltiazem HCl 24Hr 180 mg PO DAILY 12/04/20 04/27/23 ER] Albuterol Nebulized [Ventolin 2.5 mg INHALATION RT-QID PRN 03/31/23 04/27/23 Nebulized] Albuterol Sulfate [Ventolin HFA] 1 puff INHALATION RT-Q6H PRN 03/31/23 04/27/23 PARoxetine HCL [Paxil] 10 mg PO DAILY 03/31/23 04/27/23 Allergies Allergy/AdvReac Type Severity Reaction Status Date / Time ibuprofen [From Motrin] Allergy Dyspnea Verified 04/27/23 13:37 Review of Systems ROS Statement: Those systems with pertinent positive or pertinent negative responses have been documented in the HPI. ROS Other: All systems not noted in ROS Statement are negative. Past Medical History Past Medical History: Asthma, Chest Pain / Angina, GERD/Reflux, Musculoskeletal Disorder, Seizure Disorder, Syncope Additional Past Medical History / Comment(s): CMP. Migraine headache, Pacemaker 06/13/2014. SYNCOPAL EPISODES ONGOING. LOW BLOOD PRESSURE. VERTIGO R/T DIZZYNESS. UPON STANDING LT ARM & LEG GO NUMB. EEGs Showed Seizure-like Activity, Diagnosed w/ Seizures but Never physically had one. HX RUPTURED DISCS IN BACK, HAD PAIN INJ., unable to stand for longer than 12-15 minutes, History of Any Multi-Drug Resistant Organisms: None Reported Past Surgical History: Adenoidectomy, Heart Catheterization, Hernia Repair, Pacemaker, Tonsillectomy Additional Past Surgical History / Comment(s): TILT TABLE. EP STUDY. STATES MULT HERNIA REPAIRS. PACEMAKER [employer] 05/2014, Past Anesthesia/Blood Transfusion Reactions: Motion Sickness Type of Cardiac Device: Permanent Pacemaker Device Placement Date:: 2014 Past Psychological History: Anxiety, Depression Smoking Status: Never smoker Past Alcohol Use History: None Reported Past Drug Use History: None Reported - Past Family History Father Family Medical History: Chest Pain / Angina, Coronary Artery Disease (CAD) Brother(s) Family Medical History: No Reported History Sister(s) Family Medical History: No Reported History Daughter(s) Family Medical History: No Reported History Mother Family Medical History: Cancer Additional Family Medical History / Comment(s): BREAST General Exam Limitations: no limitations General appearance: alert, in no apparent distress Head exam: Present: atraumatic Eye exam: Present: normal appearance ENT exam: Present: normal exam Respiratory exam: Present: normal lung sounds bilaterally Cardiovascular Exam: Present: regular rate, normal rhythm Extremities exam: Present: full ROM Back exam: Present: full ROM, tenderness Neurological exam: Present: alert, oriented X3, CN II-XII intact Psychiatric exam: Present: normal affect, normal mood Skin exam: Present: warm Course Vital Signs 04/27/23 04/27/23 11:20 14:00 Temperature 98.5 F Pulse Rate 65 Pulse Rate [ 77 Right Sitting Brachial] Pulse Rate [ 91 Right Standing Brachial] Pulse Rate [ 80 Right Supine Brachial] Respiratory 18 Rate Blood Pressure 126/86 Blood Pressure 122/81 [Right Arm Sitting] Blood Pressure 122/90 [Right Arm Standing] Blood Pressure 133/79 [Right Arm Supine] O2 Sat by Pulse 99 Oximetry - Reevaluation(s) Reevaluation #1: 04/27/23 1037 The patient is well-appearing emergency room with no neurological deficits. He took an extended period of time to have the [employer] interrogated. At the report did show that there was no abnormal activity causing the syncope. Patient was given Zofran for nausea however he is able to ambulate with a steady gait and no further near syncope. Orthostatic were negative. Labs unremarkable. Discussed swelling up with the tar kettle runner for the syncopal events. He understands and agrees to treatment and discharge plan.. 04/27/23 19:26 EKG Findings - EKG Comments: EKG Findings:: EKG shows electronic atrial pacemaker at a rate of 74 bpm, no ectopy, ,QT int 372ms Medical Decision Making - Medical Decision Making Was pt. sent in by a medical professional or institution (, PA, LANGUAGE PATHOLOGIST, urgent care, hospital, or intermediate...) When possible be specific @ -[No] Did you speak to anyone other than the patient for history (EMS, parent, family, police, friend...)? What history was obtained from this source @ -[No] Did you review nursing and triage notes (agree or disagree)? Why? @ -[I reviewed and agree with nursing and triage notes] Were old charts reviewed (outside hosp., previous admission, EMS record, old EKG, old radiological studies, urgent care reports/EKG's, intermediate records)? Report findings @ -Yes old charts are reviewed including multiple ER and hospital admissions Differential Diagnosis (chest pain, altered mental status, abdominal pain women, abdominal pain men, vaginal bleeding, weakness, fever, dyspnea, syncope, headach e, dizziness, GI bleed, back pain, seizure, CVA, palpatations, mental health, musculoskeletal)? @ -Syncope, orthostatic hypotension, vasovagal syncope, cardiogenic syncope, arrhythmia EKG interpreted by me (3pts min.). @ -EKG shows electronic atrial pacemaker rate of 74 bpm with no ectopy X-rays interpreted by me (1pt min.). @ -X-rays negative for pneumonia, pneumothorax, cardiomegaly or other acute changes. CT interpreted by me (1pt min.). @ -[None done] U/S interpreted by me (1pt. min.). @ -[None done] What testing was considered but not performed or refused? (CT, X-rays, U/S, labs)? Why? @ -[None] What meds were considered but not given or refused? Why? @ -[None] Did you discuss the management of the patient with other professionals (professionals i.e. Dr., PA, LANGUAGE PATHOLOGIST, lab, RT, psych nurse, social service liaison, logging engineer, teacher, [employer] officer, spring encaser)? Give summary @ -[No] Was smoking cessation discussed for >3mins.? @ -[No] Was critical care preformed (if so, how long)? @ -[No] Were there social determinants of health that impacted care today? How? (Homelessness, low income, unemployed, alcoholism, drug addiction, transportation, low edu. Level, literacy, decrease access to med. care, prison, rehab)? @ -[No] Was there de-escalation of care discussed even if they declined (Discuss DNR or withdrawal of care, Hospice)? DNR status @ -[No] What co-morbidities impacted this encounter? (DM, HTN, Smoking, COPD, CAD, Cancer, CVA, ARF, Chemo, Hep., AIDS, mental health diagnosis, sleep apnea, morbid obesity)? @ -Pacemaker, suspected Chiari malformation, multiple episodes of syncope, symptomatic bradycardia Was patient admitted / discharged? Hospital course, mention meds given and route, prescriptions, significant lab abnormalities, going to OR and other pertinent info. @ -Patient is alert oriented to the emergency room with no signs of head trauma. He is neurologically intact and able to ambulate with a steady gait. His labs and imaging studies are unremarkable in the emergency room. His interrogated pacemaker shows no acute abnormal activity. Patient is stable to follow up with his tar kettle runner as an outpatient. I did discussed patient's symptoms are And discharged hand with attending ED physician Dr. Jake shay. Undiagnosed new problem with uncertain prognosis? @ -[No] Drug Therapy requiring intensive monitoring for toxicity (Heparin, Nitro, Insulin, Cardizem)? @ -[No] Were any procedures done? @ -[No] Diagnosis/symptom? @ -Syncope Acute, or Chronic, or Acute on Chronic? @ -[default] Uncomplicated (without systemic symptoms) or Complicated (systemic symptoms)? @ -[default] Side effects of treatment? @ -[No] Exacerbation, Progression, or Severe Exacerbation? @ -[No] Poses a threat to life or bodily function? How? (Chest pain, USA, [place], pneumonia, PE, COPD, DKA, ARF, appy, cholecystitis, CVA, Diverticulitis, Homicidal, Suicidal, threat to staff... and all critical care pts) @ -[No] - Lab Data Result diagrams: 04/27/23 11:04/27/23 11:30 Lab Results 04/27/23 04/27/23 04/27/23 Range/Units 11:30 11: 11:30 WBC 3.7 L (3.8-10.6) k/uL RBC 4.72 (4.30-5.90) m/uL Hgb 14.5 (13.0-17.5) gm/dL Hct 41.3 (39.0-53.0) % MCV 87.6 (80.0-100.0) fL MCH 30.8 (25.0-35.0) pg MCHC 35.1 (31.0-37.0) g/dL RDW 11.7 (11.5-15.5) % Plt Count 177 (150-450) k/uL MPV 7.7 Neutrophils % 57 % Lymphocytes % 30 % Monocytes % 9 % Eosinophils % 1 % Basophils % 1 % Neutrophils # 2.1 (1.3-7.7) k/uL Lymphocytes # 1.1 (1.0-4.8) k/uL Monocytes # 0.3 (0-1.0) k/uL Eosinophils # 0.0 (0-0.7) k/uL Basophils # 0.0 (0-0.2) k/uL Sodium 136 L (137-145) mmol/L Potassium 4.7 (3.5-5.1) mmol/L Chloride 102 (98-107) mmol/L Carbon Dioxide 24 (22-30) mmol/L Anion Gap 10 mmol/L BUN 16 (9-20) mg/dL Creatinine 0.82 (0.66-1.25) mg/dL Est GFR (CKD-EPI)AfAm >90 (>60 ml/min/1.73 sqM) Est GFR (CKD-EPI)NonAf >90 (>60 ml/min/1.73 sqM) Glucose 84 (74-99) mg/dL Calcium 9.0 (8.4-10.2) mg/dL Magnesium 2.0 (1.6-2.3) mg/dL Total Bilirubin 1.4 H (0.2-1.3) mg/dL AST 38 (17-59) U/L ALT 12 (4-49) U/L Alkaline Phosphatase 47 (38-126) U/L Troponin I 0.022 (0.000-0.034) ng/mL NT-Pro-B Natriuret Pep <20 pg/mL Total Protein 7.3 (6.3-8.2) g/dL Albumin 4.5 (3.5-5.0) g/dL Urine Color Urine Appearance (Clear) Urine pH (5.0-8.0) Ur Specific Sterling (1.001-1.035) Urine Protein (Negative) Urine Glucose (UA) (Negative) Urine Ketones (Negative) Urine Blood (Negative) Urine Nitrite (Negative) Urine Bilirubin (Negative) Urine Urobilinogen (<2.0) mg/dL Ur Leukocyte Esterase (Negative) 04/27/23 Range/Units 12:45 WBC (3.8-10.6) k/uL RBC (4.30-5.90) m/uL Hgb (13.0-17.5) gm/dL Hct (39.0-53.0) % MCV (80.0-100.0) fL MCH (25.0-35.0) pg MCHC (31.0-37.0) g/dL RDW (11.5-15.5) % Plt Count (150-450) k/uL MPV Neutrophils % % Lymphocytes % % Monocytes % % Eosinophils % % Basophils % % Neutrophils # (1.3-7.7) k/uL Lymphocytes # (1.0-4.8) k/uL Monocytes # (0-1.0) k/uL Eosinophils # (0-0.7) k/uL Basophils # (0-0.2) k/uL Sodium (137-145) mmol/L Potassium (3.5-5.1) mmol/L Chloride (98-107) mmol/L Carbon Dioxide (22-30) mmol/L Anion Gap mmol/L BUN (9-20) mg/dL Creatinine (0.66-1.25) mg/dL Est GFR (CKD-EPI)AfAm (>60 ml/min/1.73 sqM) Est GFR (CKD-EPI)NonAf (>60 ml/min/1.73 sqM) Glucose (74-99) mg/dL Calcium (8.4-10.2) mg/dL Magnesium (1.6-2.3) mg/dL Total Bilirubin (0.2-1.3) mg/dL AST (17-59) U/L ALT (4-49) U/L Alkaline Phosphatase (38-126) U/L Troponin I (0.000-0.034) ng/mL NT-Pro-B Natriuret Pep pg/mL Total Protein (6.3-8.2) g/dL Albumin (3.5-5.0) g/dL Urine Color Colorless Urine Appearance Clear (Clear) Urine pH 7.5 (5.0-8.0) Ur Specific Sterling 1.014 (1.001-1.035) Urine Protein Negative (Negative) Urine Glucose (UA) Negative (Negative) Urine Ketones Negative (Negative) Urine Blood Negative (Negative) Urine Nitrite Negative (Negative) Urine Bilirubin Negative (Negative) Urine Urobilinogen 3.0 (<2.0) mg/dL Ur Leukocyte Esterase Negative (Negative) - EKG Data -: EKG Interpreted by Vt - Radiology Data Radiology results: report reviewed, image reviewed Disposition Clinical Impression: Syncope, Dizziness Disposition: HOME SELF-CARE Condition: Good Instructions (If sedation given, give patient instructions): Syncope (ED), Dizziness (ED), Pacemaker (DC) Is patient prescribed a controlled substance at d/c from ED?: No Referrals: Woody Shields [Primary Care Provider] - 1-2 days Time of Disposition: 17:11
[2023-04-27 12:06] LABS: Basophils % (A) 1 %; Eosinophils % (A) 1 %; HCT 41.3 % (39.0-53.0); HGB 14.5 gm/dL (13.0-17.5); Lymphocytes # (A) 1.1 k/uL (1.0-4.8); Lymphocytes % (A) 30 %; MCH 30.8 pg (25.0-35.0); MCHC 35.1 g/dL (31.0-37.0); MCV 87.6 fL (80.0-100.0); Mean Platelet Volume 7.7; Monocytes # (A) 0.3 k/uL (0-1.0); Monocytes % (A) 9 %; Neutrophils # (A) 2.1 k/uL (1.3-7.7); Neutrophils % (A) 57 %; Platelet Count 177 k/uL (150-450); RBC 4.72 m/uL (4.30-5.90); RDW 11.7 % (11.5-15.5); WBC 3.7 k/uL (3.8-10.6)
[2023-04-27 12:22] LABS: ALT 12 U/L (4-49); African American GFR (CKD) >90 (>60 ml/min/1.73 sqM); Anion Gap 10 mmol/L; Blood Urea Nitrogen 16 mg/dL (9-20); Carbon Dioxide 24 mmol/L (22-30); Chloride 102 mmol/L (98-107); Glucose 84 mg/dL (74-99); Non-African American GFR(CKD) >90 (>60 ml/min/1.73 sqM); Sodium 136 mmol/L (137-145)
[2023-04-27 12:31] LABS: NT-Pro-B-Type Natriuretic Pept <20 pg/mL
[2023-04-27 12:32] LABS: Albumin 4.5 g/dL (3.5-5.0); Total Bilirubin 1.4 mg/dL (0.2-1.3); Total Protein 7.3 g/dL (6.3-8.2)
[2023-04-27 12:33] LABS: AST 38 U/L (17-59); Alkaline Phosphatase 47 U/L (38-126); Potassium 4.7 mmol/L (3.5-5.1)
[2023-04-27 13:07] LABS: Appearance,Urine Clear (Clear); Bilirubin,Urine Negative (Negative); Blood,Urine Negative (Negative); Color,Urine Colorless; Glucose,Urine (UA) Negative (Negative); Ketones,Urine Negative (Negative); Leukocyte Esterase,Urine Negative (Negative); Nitrite,Urine Negative (Negative); PH, Urine 7.5 (5.0-8.0); Protein,Urine Negative (Negative); Specific Gravity,Urine 1.014 (1.001-1.035)
--- NOTE | 2023-04-27 13:07 | XR ---
EXAMINATION TYPE: XR chest 2V DATE OF EXAM: 04/27/2023 COMPARISON: 03/31/2023. HISTORY: Passed out today. TECHNIQUE: Frontal and lateral views of the chest are obtained. FINDINGS: There is no focal air space opacity, pleural effusion, or pneumothorax seen. The cardiac silhouette size is within normal limits. The osseous structures are intact. Left-sided pacemaker ge nerator is unchanged. IMPRESSION: No acute cardiopulmonary process.
[2023-04-27 14:13] VITALS: BP 122/90; PULSE 91
[2023-04-27] MEDS ORDERED: ONDANSETRON 4 MG/2 ML VIAL IVP STA (16:58)
== END 2023-04-27 18:09 | disposition home or self-care (01) ==
LOC: EC 11:16
DX: I49.8 Other specified cardiac arrhythmias (principal); J45.909 Unspecified asthma, uncomplicated; Z86.59 Personal history of other mental and behavioral disorders; Z88.6 Allergy status to analgesic agent; Z79.899 Other long term (current) drug therapy
CPT/HCPCS: 36415; 93005; 83880; 80053; 83735; 84484; 85025; 81003; 71046; 99285; 96374; J2405

== ENCOUNTER 2023-06-22 10:01 | Emergency (ER) | payer OTHER ==
[2023-06-22] MEDS ORDERED: DIPH,PERTUS(ACELL)TETVAC-LF 0.5 ML VIAL IM ONE (10:32)
[2023-06-22] MEDS ORDERED: ACETAMINOPHEN TAB 500 MG TAB PO STA (10:32)
[2023-06-22] MEDS ORDERED: LIDOCAINE 1% INJ 10MG/ML (20 ML MDV) SQ ONE (10:34)
--- NOTE | 2023-06-22 10:37 | ED ---
General Adult HPI - General Stated complaint: R Middle Finger Time Seen by Provider: 06/22/23 10:08 Source: patient, RN notes reviewed Mode of arrival: EMS Limitations: no limitations - History of Present Illness Initial comments: 32-year-old male presents to the emergency department for evaluation of right middle finger injury. Patient states that he was working with a circular saw today at his house when his daughter tripped over the cord causing the saw to move. Patient states that because of this his right middle finger got cut with a saw. He reports appropriate range of motion and normal sensation. He is unsure of the date of his last tetanus vaccination. - Related Data Home Medications Medication Instructions Recorded Confirmed dilTIAZem HCL [Diltiazem HCl 24Hr 180 mg PO DAILY 12/04/20 04/27/23 ER] Albuterol Nebulized [Ventolin 2.5 mg INHALATION RT-QID PRN 03/31/23 04/27/23 Nebulized] Albuterol Sulfate [Ventolin HFA] 1 puff INHALATION RT-Q6H PRN 03/31/23 04/27/23 PARoxetine HCL [Paxil] 10 mg PO DAILY 03/31/23 04/27/23 Previous Rx's Medication Instructions Recorded Cephalexin [Keflex] 500 mg PO Q6HR #28 cap 06/22/23 Allergies Allergy/AdvReac Type Severity Reaction Status Date / Time ibuprofen [From Motrin] Allergy Dyspnea Verified 06/22/23 11:45 Review of Systems ROS Statement: Those systems with pertinent positive or pertinent negative responses have been documented in the HPI. ROS Other: All systems not noted in ROS Statement are negative. Past Medical History Past Medical History: Asthma, Chest Pain / Angina, GERD/Reflux, Musculoskeletal Disorder, Seizure Disorder, Syncope Additional Past Medical History / Comment(s): CMP. Migraine headache, Pacemaker 06/13/2014. SYNCOPAL EPISODES ONGOING. LOW BLOOD PRESSURE. VERTIGO R/T DIZZYNESS. UPON STANDING LT ARM & LEG GO NUMB. EEGs Showed Seizure-like Activity, Diagnosed w/ Seizures but Never physically had one. HX RUPTURED DISCS IN BACK, HAD PAIN INJ., unable to stand for longer than 12-15 minutes, History of Any Multi-Drug Resistant Organisms: None Reported Past Surgical History: Adenoidectomy, Heart Catheterization, Hernia Repair, Pacemaker, Tonsillectomy Additional Past Surgical History / Comment(s): TILT TABLE. EP STUDY. STATES MULT HERNIA REPAIRS. PACEMAKER [employer] 05/2014, Past Anesthesia/Blood Transfusion Reactions: Motion Sickness Type of Cardiac Device: Permanent Pacemaker Device Placement Date:: 2014 Past Psychological History: Anxiety, Depression Smoking Status: Never smoker Past Alcohol Use History: None Reported Past Drug Use History: None Reported - Past Family History Father Family Medical History: Chest Pain / Angina, Coronary Artery Disease (CAD) Brother(s) Family Medical History: No Reported History Sister(s) Family Medical History: No Reported History Daughter(s) Family Medical History: No Reported History Mother Family Medical History: Cancer Additional Family Medical History / Comment(s): BREAST General Exam Limitations: no limitations General appearance: alert, in no apparent distress Head exam: Present: atraumatic, normocephalic, normal inspection Eye exam: Present: normal appearance, PERRL, EOMI. Absent: scleral icterus, conjunctival injection, periorbital swelling ENT exam: Present: normal exam, mucous membranes moist Neck exam: Present: normal inspection. Absent: tenderness, meningismus, lymphadenopathy Respiratory exam: Present: normal lung sounds bilaterally. Absent: respiratory distress, wheezes, rales, rhonchi, stridor Cardiovascular Exam: Present: regular rate, normal rhythm, normal heart sounds. Absent: systolic murmur, diastolic murmur, rubs, gallop, clicks Extremities exam: Present: full ROM, tenderness, normal capillary refill, other (Radial pulses 2+, laceration soft tissue injury to the right third digit.) Back exam: Present: normal inspection Neurological exam: Present: alert, oriented X3 Psychiatric exam: Present: normal affect, normal mood Skin exam: Present: warm, dry, normal color, other (Laceration with soft tissue injury to right middle finger). Absent: rash Course Vital Signs 06/22/23 06/22/23 11:45 14:18 Temperature 98.9 F 98.0 F Pulse Rate 80 91 Respiratory 16 18 Rate Blood Pressure 124/85 112/71 O2 Sat by Pulse 100 100 Oximetry Procedures - Laceration Laceration #1 Consent Obtained: verbal consent Indication: laceration Site: hand Size (cm): 3 Description: flap Depth: simple, single layer Anesthetic Used: lidocaine 1% Anesthesia Technique: nerve block Pre-repair: wound explored, irrigated extensively Type of Sutures: other Size of Sutures: 5-0 Number of Sutures: 9 Technique: simple, interrupted Patient Tolerated Procedure: well, no complications Medical Decision Making - Medical Decision Making Was pt. sent in by a medical professional or institution (PILY Gonzalez, [employer] LABORER/DESIGNER, urgent care, hospital, or penitentiary...) When possible be specific @ -No Did you speak to anyone other than the patient for history (EMS, parent, family, police, friend...)? What history was obtained from this source @ -No Did you review nursing and triage notes (agree or disagree)? Why? @ -I reviewed and agree with nursing and triage notes Were old charts reviewed (outside hosp., previous admission, EMS record, old E KG, old radiological studies, urgent care reports/EKG's, penitentiary records)? Report findings @ -No old charts were reviewed Differential Diagnosis (chest pain, altered mental status, abdominal pain women, abdominal pain men, vaginal bleeding, weakness, fever, dyspnea, syncope, headache, dizziness, GI bleed, back pain, seizure, CVA, palpatations, mental health, musculoskeletal)? @ -Differential Musculoskeletal Muscular strain, contusion, ligament sprain, fracture, arthritis, septic arthritis, bursitis, cellulitis, muscle spasm, nerve compression, DVT, arterial occlusion, herpes zoster, electrolyte abnormality, tumor.... This is not meant to be in all inclusive list EKG interpreted by me (3pts min.). @ -None X-rays interpreted by me (1pt min.). @ -X-ray of the right middle finger shows soft tissue injury without acute fracture CT interpreted by me (1pt min.). @ -None done U/S interpreted by me (1pt. min.). @ -None done What testing was considered but not performed or refused? (CT, X-rays, U/S, labs)? Why? @ -None What meds were considered but not given or refused? Why? @ -None Did you discuss the management of the patient with other professionals (professionals i.e. PILY Gonzalez, [employer] LABORER/DESIGNER, lab, RT, psych nurse, rn social work, front office java developer, teacher, credit officer, case packer)? Give summary @ -No Was smoking cessation discussed for >3mins.? @ -No Was critical care preformed (if so, how long)? @ -No Were there social determinants of health that impacted care today? How? (Homelessness, low income, unemployed, alcoholism, drug addiction, transportation, low edu. Level, literacy, decrease access to med. care, retirement, rehab)? @ -No Was there de-escalation of care discussed even if they declined (Discuss DNR or withdrawal of care, Hospice)? DNR status @ -No What co-morbidities impacted this encounter? (DM, HTN, Smoking, COPD, CAD, Cancer, CVA, ARF, Chemo, Hep., AIDS, mental health diagnosis, sleep apnea, morbid obesity)? @ -None Was patient admitted / discharged? Hospital course, mention meds given and route, prescriptions, significant lab abnormalities, going to OR and other pertinent info. @ -Discharged. Patient presented to the emergency department for evaluation of right middle finger injury. Patient cut his finger with a saw. Patient was updated on tetanus vaccination. The wound was cleaned and sutured. X-ray obtained which shows soft tissue injury without acute fracture. Instructed on wound care and suture removal time. Prescription sent to patient's pharmacy for Keflex for prophylaxis. Advised patient to orange picker medication. Patient understanding agreeable with plan. Patient stable at time of discharge. Case discussed with Dr. Rodrigues Undiagnosed new problem with uncertain prognosis? @ -No Drug Therapy requiring intensive monitoring for toxicity (Heparin, Nitro, Insulin, Cardizem)? @ -No Were any procedures done? @ -Laceration repair Diagnosis/symptom? @ -Laceration Acute, or Chronic, or Acute on Chronic? @ -Acute Uncomplicated (without systemic symptoms) or Complicated (systemic symptoms)? @ -Uncomplicated Side effects of treatment? @ -No Exacerbation, Progression, or Severe Exacerbation? @ -No Poses a threat to life or bodily function? How? (Chest pain, [place], [place], pneumonia, PE, COPD, DKA, ARF, appy, cholecystitis, CVA, Diverticulitis, Homicidal, Suicidal, threat to staff... and all critical care pts) @ -No Disposition Clinical Impression: Laceration Disposition: HOME SELF-CARE Condition: Stable Instructions (If sedation given, give patient instructions): Care For Your Stitches (ED) Additional Instructions: Please have stitches removed in 7-10 days. Give antibiotics and take to completion. Return to the emergency department for new or worsening symptoms. Prescriptions: Cephalexin [Keflex] 500 mg PO Q6HR #28 cap Is patient prescribed a controlled substance at d/c from ED?: No Referrals: Woody Shields [Primary Care Provider] - 1-2 days
--- NOTE | 2023-06-22 11:16 | XR ---
EXAMINATION TYPE: XR finger RT DATE OF EXAM: 06/22/2023 11:01 AM CLINICAL INDICATION:Male, 32 years old with history of 3rd digit distal cut with saw; [facility] COMPARISON: None TECHNIQUE: XR finger RT Frontal, lateral and oblique views were obtained. FINDINGS: Soft tissue injury of the third digit distal aspect phalanx. No radiopaque foreign body. No rmal alignment of the visualized joints. No acute osseous pathology is identified. No evidence of s oft tissue swelling. IMPRESSION: 1. Soft tissue injury of the third digit without evidence for radiopaque foreign body. 2. No acute osseous pathology.
[2023-06-22 14:32] VITALS: BP 112/71; PULSE 91; RESP 18; TEMP 98
== END 2023-06-22 14:19 | disposition home or self-care (01) ==
LOC: EC 10:01
DX: S69.91XA Unspecified injury of right wrist, hand and finger(s), initial encounter (principal); J45.909 Unspecified asthma, uncomplicated; Z86.59 Personal history of other mental and behavioral disorders; Z79.899 Other long term (current) drug therapy; Z88.6 Allergy status to analgesic agent; W27.0XXA Contact with workbench tool, initial encounter; Y92.009 Unspecified place in unspecified non-institutional (private) residence as the place of occurrence of the external cause
CPT/HCPCS: 73140; 90715; 99283; 90471; 12002; J2001

== ENCOUNTER 2023-11-22 19:06 | Emergency (ER) | payer OTHER ==
[2023-11-22 19:11] VITALS: TEMP 97.9
[2023-11-22 20:06] LABS: Partial Thromboplastin Time 23.1 sec (22.0-30.0); Prothrombin Time 10.7 sec (10.0-12.5)
--- NOTE | 2023-11-22 20:14 | XR ---
EXAMINATION TYPE: XR chest 2V DATE OF EXAM: 11/22/2023 7:54 PM CLINICAL INDICATION:Male, 33 years old with history of Chest Pain; COMPARISON: Chest radiographs from 04/27/2023. TECHNIQUE: XR chest 2V Frontal and lateral views of the chest. FINDINGS: Lungs/Pleura: There is no evidence of pleural effusion, focal consolidation, or pneumothorax. Pulmonary vascularity: Unremarkable. Heart/mediastinum: Cardiomediastinal silhouette is unremarkable. Two lead cardiac conduction device o verlying the left hemithorax with lead tips projecting over the right ventricle and right atrium. Musculoskeletal: No acute osseous pathology. IMPRESSION: No acute cardiopulmonary disease/process.
[2023-11-22 20:20] LABS: ALT 16 U/L (4-49); AST 26 U/L (17-59); African American GFR (CKD) >90 (>60 ml/min/1.73 sqM); Albumin 4.5 g/dL (3.5-5.0); Alkaline Phosphatase 50 U/L (38-126); Amylase 55 U/L (30-110); Anion Gap 7 mmol/L; Blood Urea Nitrogen 17 mg/dL (9-20); Calcium 9.2 mg/dL (8.4-10.2); Carbon Dioxide 27 mmol/L (22-30); Chloride 104 mmol/L (98-107); Glucose 96 mg/dL (74-99); Lipase 72 U/L (23-300); Magnesium 1.9 mg/dL (1.6-2.3); Non-African American GFR(CKD) >90 (>60 ml/min/1.73 sqM); Potassium 3.7 mmol/L (3.5-5.1); Sodium 138 mmol/L (137-145); Total Bilirubin 0.5 mg/dL (0.2-1.3); Total Protein 6.9 g/dL (6.3-8.2)
[2023-11-22 20:34] LABS: Basophils % (A) 1 %; Eosinophils # (A) 0.1 k/uL (0-0.7); Eosinophils % (A) 1 %; HCT 44.3 % (39.0-53.0); HGB 15.4 gm/dL (13.0-17.5); Lymphocytes % (A) 27 %; MCH 30.7 pg (25.0-35.0); MCHC 34.8 g/dL (31.0-37.0); MCV 88.2 fL (80.0-100.0); Mean Platelet Volume 8.4; Monocytes # (A) 0.6 k/uL (0-1.0); Monocytes % (A) 8 %; Neutrophils # (A) 4.6 k/uL (1.3-7.7); Neutrophils % (A) 63 %; Platelet Count 222 k/uL (150-450); RBC 5.02 m/uL (4.30-5.90); RDW 11.8 % (11.5-15.5); WBC 7.4 k/uL (3.8-10.6)
[2023-11-22] MEDS: ONDANSETRON 4 MG/2 ML VIAL IVP STA (21:22)
[2023-11-22] MEDS: ACETAMINOPHEN IV (For NPO) 1,000 MG in EMPTY BAG 1 BAG IVPB STA (21:26)
[2023-11-22] MEDS: SODIUM CHLORIDE 0.9% 1,000 ML IV STA (21:26)
[2023-11-22 22:29] LABS: Appearance,Urine Clear (Clear); Bilirubin,Urine Negative (Negative); Blood,Urine Negative (Negative); Color,Urine Colorless; Glucose,Urine (UA) Negative (Negative); Ketones,Urine Negative (Negative); Leukocyte Esterase,Urine Negative (Negative); Nitrite,Urine Negative (Negative); PH, Urine 7.5 (5.0-8.0); Protein,Urine Negative (Negative); Urobilinogen,Urine <2.0 mg/dL (<2.0)
[2023-11-23 00:04] VITALS: PULSE 80
[2023-11-23] MEDS: HYDROmorphone 0.5 MG/0.5 ML SYRINGE IVP STA (00:21)
--- NOTE | 2023-11-23 01:21 | ED ---
General Adult HPI - General Chief complaint: Nausea/Vomiting/Diarrhea Stated complaint: chest pain/sob Time Seen by Provider: 11/22/23 19:28 Source: patient Mode of arrival: wheelchair Limitations: no limitations - History of Present Illness Initial comments: 33-year-old male with past medical history significant for sick sinus syndrome status post pacemaker placement presenting to the ED with complaints of nausea vomiting. Patient reports today onset of intermittent episodes of lightheadedness with some associated headache, nausea, vomiting, diffuse abdominal pain, and pain in the middle of his chest. Does also note some chills with this. Denies fever. No diarrhea. No changes in urinary habits. No other complaints at this time. - Related Data Home Medications Medication Instructions Recorded Confirmed dilTIAZem HCL [Diltiazem HCl 24Hr 180 mg PO DAILY 12/04/20 04/27/23 ER] Albuterol Nebulized [Ventolin 2.5 mg INHALATION RT-QID PRN 03/31/23 04/27/23 Nebulized] Albuterol Sulfate [Ventolin HFA] 1 puff INHALATION RT-Q6H PRN 03/31/23 04/27/23 PARoxetine HCL [Paxil] 10 mg PO DAILY 03/31/23 04/27/23 Previous Rx's Medication Instructions Recorded Cephalexin [Keflex] 500 mg PO Q6HR #28 cap 06/22/23 Ondansetron Odt [Zofran Odt] 4 mg PO Q8HR PRN #10 tab 11/23/23 Allergies Allergy/AdvReac Type Severity Reaction Status Date / Time ibuprofen [From Motrin] Allergy Dyspnea Verified 11/22/23 19:10 Review of Systems ROS Statement: Those systems with pertinent positive or pertinent negative responses have been documented in the HPI. ROS Other: All systems not noted in ROS Statement are negative. Past Medical History Past Medical History: Asthma, Chest Pain / Angina, GERD/Reflux, Musculoskeletal Disorder, Seizure Disorder, Syncope Additional Past Medical History / Comment(s): CMP. Migraine headache, Pacemaker 06/13/2014. SYNCOPAL EPISODES ONGOING. LOW BLOOD PRESSURE. VERTIGO R/T DIZZYNESS. UPON STANDING LT ARM & LEG GO NUMB. EEGs Showed Seizure-like Activity, Diagnosed w/ Seizures but Never physically had one. HX RUPTURED DISCS IN BACK, HAD PAIN INJ., unable to stand for longer than 12-15 minutes, History of Any Multi-Drug Resistant Organisms: None Reported Past Surgical History: Adenoidectomy, Heart Catheterization, Hernia Repair, Pacemaker, Tonsillectomy Additional Past Surgical History / Comment(s): TILT TABLE. EP STUDY. STATES MULT HERNIA REPAIRS. PACEMAKER [employer] 05/2014, Past Anesthesia/Blood Transfusion Reactions: Motion Sickness Type of Cardiac Device: Permanent Pacemaker Device Placement Date:: 2014 Past Psychological History: Anxiety, Depression Smoking Status: Never smoker Past Alcohol Use History: None Reported Past Drug Use History: None Reported - Past Family History Father Family Medical History: Chest Pain / Angina, Coronary Artery Disease (CAD) Brother(s) Family Medical History: No Reported History Sister(s) Family Medical History: No Reported History Daughter(s) Family Medical History: No Reported History Mother Family Medical History: Cancer Additional Family Medical History / Comment(s): BREAST General Exam Limitations: no limitations General appearance: alert, in no apparent distress Eye exam: Present: normal appearance Neck exam: Present: normal inspection Respiratory exam: Present: normal lung sounds bilaterally Cardiovascular Exam: Present: regular rate GI/Abdominal exam: Present: soft, normal bowel sounds. Absent: distended, tenderness, guarding, rebound, rigid Neurological exam: Present: alert, oriented X3 Skin exam: Present: warm, dry Course Vital Signs 11/22/23 11/22/23 11/23/23 19:08 21:42 00:02 Temperature 97.9 F Pulse Rate 93 60 80 Respiratory 18 20 18 Rate Blood Pressure 134/93 124/89 103/68 O2 Sat by Pulse 98 97 98 Oximetry 11/23/23 00:20 Temperature Pulse Rate 80 Respiratory 18 Rate Blood Pressure 114/64 O2 Sat by Pulse 97 Oximetry Medical Decision Making - Medical Decision Making Was pt. sent in by a medical professional or institution (, PA, [facility]ER, urgent care, hospital, or [facility]...) When possible be specific @ -No Did you speak to anyone other than the patient for history (EMS, parent, family, police, friend...)? What history was obtained from this source @ -No Did you review nursing and triage notes (agree or disagree)? Why? @ -I reviewed and agree with nursing and triage notes Were old charts reviewed (outside hosp., previous admission, EMS record, old EKG, old radiological studies, urgent care reports/EKG's, [facility] records)? Report findings @ -No old charts were reviewed Differential Diagnosis (chest pain, altered mental status, abdominal pain women, abdominal pain men, vaginal bleeding, weakness, fever, dyspnea, syncope, headache, dizziness, GI bleed, back pain, seizure, CVA, palpatations, mental health, musculoskeletal)? @ -Differential Chest Pain: Stable Angina, Unstable Angina, STEMI, NSTEMI Aortic Dissection, Pneumothorax, Musculoskeletal, Esophageal Spasm GERD, Cholecystitis, Pancreatitis, Zoster, this is not meant to be an all-inclusive list. Differential Dizziness: Benign paroxysmal positional Vertigo, Menieres disease, otitis media, acoustic neuroma, vertebrobasilar insufficiency, cerebellar stroke, encephalitis, hypovolemic, arrhythmia, coronary artery syndrome, anemia, this is not meant to be an all-inclusive list EKG interpreted by me (3pts min.). @ -EKG interpreted by me showing a paced rhythm without acute ST or T wave changes. Rate of 80, RI 216, QRS 110, QT/QTc 346/381. X-rays interpreted by me (1pt min.). @ -Chest x-ray inter by me which revealed no evidence of acute finding. CT interpreted by me (1pt min.). @ -None done U/S interpreted by me (1pt. min.). @ -None done What testing was considered but not performed or refused? (CT, X-rays, U/S, labs)? Why? @ -None What meds were considered but not given or refused? Why? @ -None Did you discuss the management of the patient with other professionals (professionals i.e. , PA, SKEINER, lab, RT, psych nurse, social services assistant, client coordinator, teacher, president and chief operating officer, cyanide case hardener)? Give summary @ -No Was smoking cessation discussed for >3mins.? @ -No Was critical care preformed (if so, how long)? @ -No Were there social determinants of health that impacted care today? How? (Homelessness, low income, unemployed, alcoholism, drug addiction, tr ansportation, low edu. Level, literacy, decrease access to med. care, shelter, rehab)? @ -No Was there de-escalation of care discussed even if they declined (Discuss DNR or withdrawal of care, Hospice)? DNR status @ -No What co-morbidities impacted this encounter? (DM, HTN, Smoking, COPD, CAD, Cancer, CVA, ARF, Chemo, Hep., AIDS, mental health diagnosis, sleep apnea, morbid obesity)? @ -None Was patient admitted / discharged? Hospital course, mention meds given and route, prescriptions, significant lab abnormalities, going to OR and other pertinent info. @ -Discharge 33-year-old male presenting to the ED with complaints of intermittent lightheadedness, nausea vomiting, diffuse abdominal pain, headache, and pain in the middle of his chest. On exam pain reproducible. Laboratory studies reviewed. Labs including CBC, D-dimer, chemistry panel, amylase, lipase, urine, serology panel unremarkable. Troponin undetectable. Chest x-ray revealed no evidence of acute finding. EKG showed a paced rhythm without acute changes. Symptoms likely viral in nature. Provided analgesia and antiemetics here with significant improvement of symptoms. Discharged home in stable condition. Discussed return precautions with patient who verbalized agreement. Undiagnosed new problem with uncertain prognosis? @ -No Drug Therapy requiring intensive monitoring for toxicity (Heparin, Nitro, Insulin, Cardizem)? @ -No Were any procedures done? @ -No Diagnosis/symptom? @ -Nausea and vomiting Acute, or Chronic, or Acute on Chronic? @ -Acute Uncomplicated (without systemic symptoms) or Complicated (systemic symptoms)? @ -Uncomplicated Side effects of treatment? @ -No Exacerbation, Progression, or Severe Exacerbation? @ -No Poses a threat to life or bodily function? How? (Chest pain, [place], [place], pneumonia, PE, COPD, DKA, ARF, appy, cholecystitis, CVA, Diverticulitis, Homicidal, Suicidal, threat to staff... and all critical care pts) @ -No - Lab Data Result diagrams: 11/22/23 19:32 11/22/23 19:32 Lab Results 11/22/23 11/22/23 11/22/23 Range/Units 19:32 19:32 19:32 WBC 7.4 (3.8-10.6) k/uL RBC 5.02 (4.30-5.90) m/uL Hgb 15.4 (13.0-17.5) gm/dL Hct 44.3 (39.0-53.0) % MCV 88.2 (80.0-100.0) fL MCH 30.7 (25.0-35.0) pg MCHC 34.8 (31.0-37.0) g/dL RDW 11.8 (11.5-15.5) % Plt Count 222 (150-450) k/uL MPV 8.4 Neutrophils % 63 % Lymphocytes % 27 % Monocytes % 8 % Eosinophils % 1 % Basophils % 1 % Neutrophils # 4.6 (1.3-7.7) k/uL Lymphocytes # 2.0 (1.0-4.8) k/uL Monocytes # 0.6 (0-1.0) k/uL Eosinophils # 0.1 (0-0.7) k/uL Basophils # 0.0 (0-0.2) k/uL PT 10.7 (10.0-12.5) sec INR 1.0 (<1.2) APTT 23.1 (22.0-30.0) sec D-Dimer (<0.60) mg/L FEU Sodium (137-145) mmol/L Potassium (3.5-5.1) mmol/L Chloride (98-107) mmol/L Carbon Dioxide (22-30) mmol/L Anion Gap mmol/L BUN (9-20) mg/dL Creatinine (0.66-1.25) mg/dL Est GFR (CKD-EPI)AfAm (>60 ml/min/1.73 sqM) Est GFR (CKD-EPI)NonAf (>60 ml/min/1.73 sqM) Glucose (74-99) mg/dL Calcium (8.4-10.2) mg/dL Magnesium (1.6-2.3) mg/dL Total Bilirubin (0.2-1.3) mg/dL AST (17-59) U/L ALT (4-49) U/L Alkaline Phosphatase (38-126) U/L Troponin I (0.000-0.034) ng/mL Total Protein (6.3-8.2) g/dL Albumin (3.5-5.0) g/dL Amylase (30-110) U/L Lipase (23-300) U/L Urine Color Colorless Urine Appearance Clear (Clear) Urine pH 7.5 (5.0-8.0) Ur Specific [place] 1.020 (1.001-1.035) Urine Protein Negative (Negative) Urine Glucose (UA) Negative (Negative) Urine Ketones Negative (Negative) Urine Blood Negative (Negative) Urine Nitrite Negative (Negative) Urine Bilirubin Negative (Negative) Urine Urobilinogen <2.0 (<2.0) mg/dL Ur Leukocyte Esterase Negative (Negative) Influenza Type A (PCR) (Not Detectd) Influenza Type B (PCR) (Not Detectd) RSV (PCR) (Not Detectd) SARS-CoV-2 (PCR) (Not Detectd) 11/22/23 11/22/23 11/22/23 Range/Units 19:32 19:32 21:28 WBC (3.8-10.6) k/uL RBC (4.30-5.90) m/uL Hgb (13.0-17.5) gm/dL Hct (39.0-53.0) % MCV (80.0-100.0) fL MCH (25.0-35.0) pg MCHC (31.0-37.0) g/dL RDW (11.5-15.5) % Plt Count (150-450) k/uL MPV Neutrophils % % Lymphocytes % % Monocytes % % Eosinophils % % Basophils % % Neutrophils # (1.3-7.7) k/uL Lymphocytes # (1.0-4.8) k/uL Monocytes # (0-1.0) k/uL Eosinophils # (0-0.7) k/uL Basophils # (0-0.2) k/uL PT (10.0-12.5) sec INR (<1.2) APTT (22.0-30.0) sec D-Dimer (<0.60) mg/L FEU Sodium 138 (137-145) mmol/L Potassium 3.7 (3.5-5.1) mmol/L Chloride 104 (98-107) mmol/L Carbon Dioxide 27 (22-30) mmol/L Anion Gap 7 mmol/L BUN 17 (9-20) mg/dL Creatinine 0.79 (0.66-1.25) mg/dL Est GFR (CKD-EPI)AfAm >90 (>60 ml/min/1.73 sqM) Est GFR (CKD-EPI)NonAf >90 (>60 ml/min/1.73 sqM) Glucose 96 (74-99) mg/dL Calcium 9.2 (8.4-10.2) mg/dL Magnesium 1.9 (1.6-2.3) mg/dL Total Bilirubin 0.5 (0.2-1.3) mg/dL AST 26 (17-59) U/L ALT 16 (4-49) U/L Alkaline Phosphatase 50 (38-126) U/L Troponin I <0.012 (0.000-0.034) ng/mL Total Protein 6.9 (6.3-8.2) g/dL Albumin 4.5 (3.5-5.0) g/dL Amylase 55 (30-110) U/L Lipase 72 (23-300) U/L Urine Color Urine Appearance (Clear) Urine pH (5.0-8.0) Ur Specific [place] (1.001-1.035) Urine Protein (Negative) Urine Glucose (UA) (Negative) Urine Ketones (Negative) Urine Blood (Negative) Urine Nitrite (Negative) Urine Bilirubin (Negative) Urine Urobilinogen (<2.0) mg/dL Ur Leukocyte Esterase (Negative) Influenza Type A (PCR) Not Detected (Not Detectd) Influenza Type B (PCR) Not Detected (Not Detectd) RSV (PCR) Not Detected (Not Detectd) SARS-CoV-2 (PCR) Not Detected (Not Detectd) 11/22/23 Range/Units 23:57 WBC (3.8-10.6) k/uL RBC (4.30-5.90) m/uL Hgb (13.0-17.5) gm/dL Hct (39.0-53.0) % MCV (80.0-100.0) fL MCH (25.0-35.0) pg MCHC (31.0-37.0) g/dL RDW (11.5-15.5) % Plt Count (150-450) k/uL MPV Neutrophils % % Lymphocytes % % Monocytes % % Eosinophils % % Basophils % % Neutrophils # (1.3-7.7) k/uL Lymphocytes # (1.0-4.8) k/uL Monocytes # (0-1.0) k/uL Eosinophils # (0-0.7) k/uL Basophils # (0-0.2) k/uL PT (10.0-12.5) sec INR (<1.2) APTT (22.0-30.0) sec D-Dimer 0.22 (<0.60) mg/L FEU Sodium (137-145) mmol/L Potassium (3.5-5.1) mmol/L Chloride (98-107) mmol/L Carbon Dioxide (22-30) mmol/L Anion Gap mmol/L BUN (9-20) mg/dL Creatinine (0.66-1.25) mg/dL Est GFR (CKD-EPI)AfAm (>60 ml/min/1.73 sqM) Est GFR (CKD-EPI)NonAf (>60 ml/min/1.73 sqM) Glucose (74-99) mg/dL Calcium (8.4-10.2) mg/dL Magnesium (1.6-2.3) mg/dL Total Bilirubin (0.2-1.3) mg/dL AST (17-59) U/L ALT (4-49) U/L Alkaline Phosphatase (38-126) U/L Troponin I (0.000-0.034) ng/mL Total Protein (6.3-8.2) g/dL Albumin (3.5-5.0) g/dL Amylase (30-110) U/L Lipase (23-300) U/L Urine Color Urine Appearance (Clear) Urine pH (5.0-8.0) Ur Specific [place] (1.001-1.035) Urine Protein (Negative) Urine Glucose (UA) (Negative) Urine Ketones (Negative) Urine Blood (Negative) Urine Nitrite (Negative) Urine Bilirubin (Negative) Urine Urobilinogen (<2.0) mg/dL Ur Leukocyte Esterase (Negative) Influenza Type A (PCR) (Not Detectd) Influenza Type B (PCR) (Not Detectd) RSV (PCR) (Not Detectd) SARS-CoV-2 (PCR) (Not Detectd) Disposition Clinical Impression: Nausea and vomiting Disposition: HOME SELF-CARE Condition: Good Instructions (If sedation given, give patient instructions): Acute Nausea and Vomiting (ED) Additional Instructions: Please return to the Emergency Department if symptoms worsen or any other concerns. Please follow-up with your primary care provider. Prescriptions: Ondansetron Odt [Zofran Odt] 4 mg PO Q8HR PRN #10 tab PRN Reason: Nausea Is patient prescribed a controlled substance at d/c from ED?: No Referrals: Woody Shields [Primary Care Provider] - 1-2 days Time of Disposition: 01:25
[2023-11-23] MEDS: SODIUM CHLORIDE 0.9% 1,000 ML IV STA (01:41)
[2023-11-23 02:28] VITALS: BP 121/85; RESP 15
== END 2023-11-23 02:28 | disposition home or self-care (01) ==
LOC: EC 19:06
DX: R11.2 Nausea with vomiting, unspecified (principal); Z88.8 Allergy status to other drugs, medicaments and biological substances; Z11.52 Encounter for screening for COVID-19
CPT/HCPCS: 36415; 93005; 85379; 80053; 82150; 83690; 83735; 84484; 85025; 85610; 85730; 81003; 87636; 71046; 99284; 96365; 96375 ×2; 96361; J2405; J0131

== ENCOUNTER → 2024-08-06 | Day surgery (SDC) | payer OTHER ==
[2024-08-06] MEDS: IV FLUID CONTINUATION 1,000 ML IV ONE (10:17)
[2024-08-06] MEDS: SODIUM CHLORIDE 0.9% 1,000 ML IV SCH (10:17)
[2024-08-06 10:29] VITALS: RESP 14; TEMP 97.6
[2024-08-06 10:42] LABS: Basophils % (A) 1 %; Eosinophils % (A) 1 %; HCT 45.4 % (39.0-53.0); HGB 15.2 gm/dL (13.0-17.5); Lymphocytes # (A) 1.4 k/uL (1.0-4.8); Lymphocytes % (A) 31 %; MCH 30.1 pg (25.0-35.0); MCHC 33.4 g/dL (31.0-37.0); MCV 90.2 fL (80.0-100.0); Mean Platelet Volume 7.4; Monocytes # (A) 0.3 k/uL (0-1.0); Monocytes % (A) 6 %; Neutrophils # (A) 2.6 k/uL (1.3-7.7); Neutrophils % (A) 60 %; Platelet Count 231 k/uL (150-450); RBC 5.03 m/uL (4.30-5.90); RDW 11.9 % (11.5-15.5); WBC 4.3 k/uL (3.8-10.6)
[2024-08-06 10:51] LABS: African American GFR (CKD) >90 (>60 ml/min/1.73 sqM); Anion Gap 8 mmol/L; Blood Urea Nitrogen 17 mg/dL (9-20); Calcium 8.8 mg/dL (8.4-10.2); Carbon Dioxide 29 mmol/L (22-30); Chloride 101 mmol/L (98-107); Glucose 84 mg/dL (74-99); Non-African American GFR(CKD) >90 (>60 ml/min/1.73 sqM); Potassium 4.2 mmol/L (3.5-5.1); Sodium 138 mmol/L (137-145)
[2024-08-06] MEDS: CLINDAMYCIN 600 MG in SODIUM CHLORIDE 0.9% 250 ML IRRIGATION PRN (12:15)
[2024-08-06] MEDS: MIDAZOLAM 2 MG/2 ML VIAL IVP ONE ×4 (12:20→12:32)
[2024-08-06] MEDS: fentaNYL (PF) 50 MCG/ML 2 ML AMP IVP ONE ×2 (12:20→12:30)
[2024-08-06] MEDS: fentaNYL (PF) 50 MCG/1 ML VIAL IVP ONE ×2 (12:28→12:32)
[2024-08-06] MEDS: LIDOCAINE 1% INJ 10MG/ML (20 ML MDV) SQ ONE ×2 (12:31→12:32)
[2024-08-06] MEDS: ACETAMINOPHEN IV (For NPO) 1,000 MG in EMPTY BAG 1 BAG IVPB STA (15:08)
[2024-08-06 15:33] VITALS: BP 109/65; PULSE 80
--- NOTE | 2024-08-06 23:11 | P.PCN ---
Description of Procedure: CARDIOLOGY PROCEDURE NOTE [employer] Record Clerk: Dr. Delroy Alvarado Procedure performed: Dual chamber permanent pacemaker generator change Site: Left subclavian Indications: Sick Sinus Syndrome, symptomatic bradycardia, DESIREE Complications: None Blood Loss: Minimal Description of Procedure: After the risks, benefits, and alternatives of the above-mentioned procedure was explained in detail with the patient, informed consent was obtained. The patient was taken to the cardiac catheterization suite where the left subclavian area wa s sterily prepped and draped in the usual fashion. Patient was given IV Versed and fentanyl for sedation. The skin over the existing pulse generator was infiltrated with lidocaine. An incision was made in the skin and was deepened until the pectoral fascia was exposed. Hemostasis was obtained. The existing pulse generator was pulled out of the pocket. The leads were disconnected and were checked for thresholds. The existing leads were then inserted into the appropriate position into the new generator. They were then secured with the setscrew provided. The leads and generator were inserted into the pocket with the leads posterior. The subcutaneous tissue was approximated utilizing #2.0 and 3.0 vicryl in an interrupted stitch fashion. The dermal layer was approximated utilizing #4.0 vicryl. The area was cleansed with sterile saline and dried. A sterile 4x4 dressing was applied and the patient was transferred to the post catheterization holding area in stable and satisfactory condition. The patient tolerated the procedure well. Generator Data Machinery Dismantler: [employer] Brand: [id number] Bibi XT DR MRI Model #: [id number] Serial#: [id number] Right Atrial Bipolar Lead Data: Type: Active fixation lead Machinery Dismantler: [employer]tronic Model#: 5076-45 Serial Number: [id number] Right Ventricular Bipolar Lead Data: Type: Active fixation lead Machinery Dismantler: [employer]onic Model #: 5076-52 Serial #: [id number] Stimulation Thresholds: Right atrial bipolar lead pacing and sensing thresholds Voltage: 0.5 Impedance: 418 ohms P-wave sensin.8 mV Right Ventricular bipolar lead pacing and sensing thresholds Pulse Width: 0.4ms Voltage: 1.0 volts Impedance: 456 ohms R-wave sensin.9 mV Parameter Setting: Pacing mode is AAI<=>DDD Lower rate 60 bpm Upper rate 130 bpm Impressions: 1. Successful generator change of a dual chamber permanent pacemaker in the left pectoral site. 2. Incidental short run of atrial fibrillation noted during generator change Plan: 1. Routine post procedure care will be instituted as well as outpatient follow- up surveillance.
== END ==
LOC: CATHEP 09:58
PROVIDERS: ATTEND Internal Medicine
DX: T82.111A Breakdown (mechanical) of cardiac pulse generator (battery), initial encounter (principal); I49.5 Sick sinus syndrome; I48.91 Unspecified atrial fibrillation; R00.1 Bradycardia, unspecified
CPT/HCPCS: 33228; 80048; 85025; C1785; J2250; J0690; J2003; J3010 ×2; J0131; J0736